=== PATIENT | male | born 1950 | race Caucasian/White ===

== ENCOUNTER 2020-04-16 22:01 | Outpatient (REF) | payer MEDICARE, MEDICAID, SELFPAY ==
[2020-04-16 21:35] LABS: Bilirubin Negative (Negative); Blood Moderate (Negative); Clarity Cloudy (Clear); Glucose Negative (Negative); Ketones Negative (Negative); Leukocyte Esterase Small (Negative); Nitrite Positive (Negative); Specific Gravity >= 1.030 (1.005-1.025); pH 6.5 (5-8)
[2020-04-16 21:55] LABS: WBC >50 HPF (0-5)
[2020-04-16 21:56] LABS: Bacteria Packed HPF (Negative); C & S Indicated? C&S Done As Ordered
== END 2020-04-16 22:21 ==
LOC: LBN 22:01
PROVIDERS: PCP Family Medicine; Visit Provider Family Medicine
DX: R30.0 Dysuria (principal); N18.9 Chronic kidney disease, unspecified
CPT/HCPCS: 87077; 81003; 81015; 87086; 87186

== ENCOUNTER 2020-09-11 17:52 | Outpatient (REF) | payer MEDICARE, MEDICAID, SELFPAY ==
[2020-09-11 18:20] LABS: Bacteria Many HPF (Negative); C & S Indicated? C&S Done As Ordered; Casts Negative LPF (Negative); Crystals Negative HPF (Negative); Epithelial Cells Rare HPF (Negative); Mucus Negative (Negative); Other Cells Negative (Negative); RBC 0-2 HPF (0-2); WBC >50 HPF (0-5)
[2020-09-11 21:38] LABS: Bilirubin Negative (Negative); Blood Large (Negative); Clarity Cloudy (Clear); Glucose Negative (Negative); Ketones Negative (Negative); Leukocyte Esterase Small (Negative); Nitrite Positive (Negative); Specific Gravity >= 1.030 (1.005-1.025); Urobilinogen >=8.0 EU/dL (Up TO 0.2); pH 6.5 (5-8)
[2020-09-11 21:51] LABS: C & S Indicated? Yes
[2020-09-11 21:52] LABS: WBC >50 HPF (0-5)
== END 2020-09-11 17:53 | disposition home or self-care (01) ==
LOC: LBN 17:52
PROVIDERS: PCP Family Medicine; Visit Provider Family Medicine
DX: N39.0 Urinary tract infection, site not specified (principal); R39.89 Other symptoms and signs involving the genitourinary system
CPT/HCPCS: 87077; 81003; 81015; 87086; 87186

== ENCOUNTER 2021-02-14 21:14 | Outpatient (REF) | payer MEDICARE, MEDICAID, SELFPAY ==
[2021-02-14 21:21] LABS: HCT 38.2 % (40.0-50.0); HGB 12.5 g/dL (13.5-17.5); MCH 29.8 pg (27.0-33.0); MCHC 32.7 % (32.0-36.0); MCV 91.2 fL (80-95); MPV 12.1 fL (8.0-11.0); Platelet Count 223 10^3/uL (130-400); RBC 4.19 10^6/uL (4.36-5.78); RDW 13.1 % (11.8-14.1); RDW-SD 43.2 fL; WBC 8.12 10^3/uL (4.4-10.8)
[2021-02-14 22:50] LABS: ALT 25 U/L (16-63); AST 14 U/L (15-37); Albumin 3.6 g/dL (3.4-5.0); Alkaline Phosphatase 81 U/L (46-116); Anion Gap 11.3 mmol/L (3-11); BUN 22 mg/dL (7-18); Bilirubin, Total 0.6 mg/dL (0.2-1.0); CO2 25.7 mmol/L (21.0-32.0); CREATININE 1.8 mg/dL (0.70-1.30); Calcium 8.9 mg/dL (8.5-10.1); Calculated LDL 45 mg/dL (<100); Chloride 106 mmol/L (98-107); Cholesterol 107 mg/dL (<200); Estimated GFR 37.27 (mL/min/1.73m2); Glucose 96 mg/dL (74-106); HDL Cholesterol 31 mg/dL (40-60); Potassium 4.4 mmol/L (3.5-5.1); Sodium 143 mmol/L (136-145); Total Protein 7.3 g/dL (6.4-8.2); Triglyceride 155 mg/dL (<150)
== END 2021-02-14 21:15 | disposition home or self-care (01) ==
LOC: NCHCN 21:14
PROVIDERS: PCP Family Medicine; Visit Provider Family Medicine
DX: E78.5 Hyperlipidemia, unspecified (principal)
CPT/HCPCS: 80053; 80061; 85027

== ENCOUNTER 2021-06-28 23:00 | Inpatient (IN) | payer MEDICARE, MEDICAID, SELFPAY ==
[2021-06-28 23:15] VITALS: BP 133/79; PULSE 79; RESP 20; TEMP 36.4; O2SAT 97
[2021-06-28 23:36] VITALS: RESP 20
--- NOTE | 2021-06-29 | DI.RAD_ITS ---
Exam(s) XR HIP LT COMPLETE AP PELVIS EXAM: XR HIP LT COMPLETE AP PELVIS CLINICAL HISTORY: fall on left hip. TECHNIQUE: 2D digital imaging was performed. COMPARISON: No exams were available for comparison FINDINGS: There is a left hip prosthesis which appears intact. No fracture at this level nor loosening. Also no pelvic fractures. No obvious right hip fracture. Vascular calcification of the iliac arteries no gilbert on both sides of the pelvis. IMPRESSION: Left hip prosthesis. No pelvic nor hip fractures evident. DATA REPOSITORY: RADIATION DOSE DELIVERED:
[2021-06-29 00:22] LABS: Source Nasal/Nares
--- NOTE | 2021-06-29 00:41 | ED.GENADUL_ITS ---
Discharge Plan Disposition Patient Disposition: [facility] INPATIENT Condition: Stable Discharge Details Clinical Impression: Encounter for medical assessment, Bedbound Primary Care Provider: Sridhar Magaña ED Provider: Wayne Yeung Home Meds and New Rx's Prescriptions: No Action sildenafil 25 mg tablet 25 mg PO DAILY PRNRF: 0 triamcinolone acetonide 0.1 % cream 1 applic topical BID RF: 0 sildenafil [Viagra] 100 mg tablet 100 mg PO DAILY PRNRF: 0 thiamine HCl (vitamin B1) 100 mg tablet 100 mg PO DAILY RF: 0 diclofenac sodium 1 % gel 2 g topical TID RF: 0 gabapentin 100 mg capsule 100 mg PO TID RF: 0 clopidogrel [Plavix] 75 mg tablet 75 mg PO DAILY RF: 0 docusate sodium 50 mg/5 mL liquid 50 mg PO BID RF: 0 atorvastatin 20 mg tablet 20 mg PO DAILY RF: 0 metoprolol succinate 50 mg tablet extended release 24 hr PO RF: 0 lisinopril 5 mg tablet 5 mg PO DAILY AM RF: 0 Medical Decision Making <Jame Diaz DO - Last Filed: 06/29/21 07:33> This is a 71-year-old male who is a palliative care patient with a past medical history of previous CVA, who is bedbound, who is DNR/DNI, previous alcohol user, with hypertension, chronic viral hepatitis C, and chronic weakness of the left side secondary to previous stroke, who presents today for medical evaluation. Per the palliative care note he does require help at all times, and uses a [employer] lift transfer. He did have helpers at home but stopped taking them sometime ago. He has otherwise been at home alone for an unknown amount of time. Family members live in [place] and did not in this area. Patient refuses any additional services, and states specifically that I want to live and at home, and I do not want to go back to a care facility or be admitted to the hospital. This evening per state police the daughter of the patient contacted police and said that her father needed to be evaluated. When police and fire evaluated the patient they state that the house was a mess, and the carbon monoxide alarms were going off. Fire felt that there may have been a gas leak, shot that he off to the house. Patient was then brought to [facility] for further assessment. Patient currently has no complaints aside from mild achiness in his left hip. He states that I do not want to be in the hospital, I refused to be admitted, and I refused to go to a facility. He denies any other complaints at this time. Physical exam demonstrates a disheveled appearing male, mild pain over the left greater trochanter. No other signs of focal trauma or other significant acute abnormality. Patient makes it unequivocally clear that he does not want to be in the hospital, he does not want to be admitted, he does not want blood work done, and he does not want to go to a care facility. I discussed with him that he is currently off at his house because the fire department turned it off. I stated that if we sent him home he would likely . He states that he understands this, and has excepted that. He had some choice words to say about his daughter who called, and I did convey that she was doing her best to look out for him. I did attempt to call and connect with the daughter Musa myself at the provided phone number from [employer] police ([phone]) however we were not able to get a hold of her even after multiple attempts. The patient is notably alert and oriented. He knows where he is when it is and demonstrates a very clear understanding of what is going on. He also makes it clear that he understands if he goes home and lives alone he would likely , and he states he accepts this, and states that home is where he wants the diet. Currently though I do not feel that this is the best option to send him home at 1 in the morning with no heat during the middle of the winter. So for the time being we will keep the patient here tonight, give him dinner, and then have case management help develop an appropriate plan for disposition. Additionally we did test for carbon monoxide, and his numbers are all within normal limit. 2:10 AM X-ray negative for acute process. Patient is comfortable. He has eaten well. 7:32 AM Patient was stable throughout the evening, no complications. We will have case management assess him to help with the disposition plan. Case will be signed out to my colleague Dr. Wayne Yeung for final disposition. FINDINGS: Bones/joints: Unipolar left hip prosthesis is grossly intact. No acute fracture. Moderate degenerative changes in the right hip Soft tissues: Unremarkable. Large stool in the rectal vault IMPRESSION: No acute fracture noted Unipolar left hip arthroplasty, grossly intact Thank you for allowing us to participate in the care of your patient. Dictated and Authenticated by: Price Don MD 06/29/2021 1:42 AM Eastern Time ([place] & [place]) <Wayne Yeung MD - Last Filed: 06/29/21 11:03> Care signed out by Dr. Diaz. Catalina Marc, Care Management, reached out to fire dept rep who notes additional history: * CO level in home is high but not critical * heat is still on in home * Patient had live in home health care worker until yesterday when he quit for nonpayment * No family available to participate in care Unsafe for patient to be discharged home with no in home assistance. No family available. Patient agreeable to hospitalization. I spoke with Dr. Beasley, discussed ED presentation and course, he will admit patient. HPI <Jame Diaz DO - Last Filed: 06/29/21 07:33> General Date/Time Provider Initiated Documentation: 06/28/21 23:02 . HPI Narrative: This is a 71-year-old male who is a palliative care patient with a past medical history of previous CVA, who is bedbound, who is DNR/DNI, previous alcohol user, with hypertension, chronic viral hepatitis C, and chronic weakness of the left side secondary to previous stroke, who presents today for medical evaluation. Per the palliative care note he does require help at all times, and uses a [employer] lift transfer. He did have helpers at home but stopped taking them sometime ago. He has otherwise been at home alone for an unknown amount of time. Family members live in [place] and did not in this area. Patient refuses any additional services, and states specifically that I want to live and at home, and I do not want to go back to a care facility or be admitted to the hospital. This evening per state police the daughter of the patient contacted police and said that her father needed to be evaluated. When police and fire evaluated the patient they state that the house was a mess, and the carbon monoxide alarms were going off. Fire felt that there may have been a gas leak, shot that he off to the house. Patient was then brought to [facility] for further assessment. Patient currently has no complaints aside from mild achiness in his left hip. He states that I do not want to be in the hospital, I refused to be admitted, and I refused to go to a facility. He denies any other complaints at this time. Related Data Home Medications Medication Instructions Recorded Confirmed sildenafil 100 mg tablet 100 mg PO DAILY PRN 03/22/20 sildenafil 25 mg tablet 25 mg PO DAILY PRN 03/22/20 triamcinolone acetonide 0.1 % 1 applic TOPICAL BID 03/22/20 topical cream clopidogrel 75 mg tablet 75 mg PO DAILY 06/05/20 06/28/21 diclofenac sodium 1 % topical gel 2 g TOPICAL TID g 06/05/20 docusate sodium 50 mg/5 mL oral 50 mg PO BID ml 06/05/20 liquid gabapentin 100 mg capsule 100 mg PO TID 06/05/20 06/28/21 thiamine HCl (vitamin B1) 100 mg 100 mg PO DAILY 06/05/20 06/28/21 tablet atorvastatin 20 mg PO DAILY 06/28/21 06/28/21 lisinopril 5 mg PO DAILY AM 06/28/21 06/28/21 metoprolol succinate PO 06/28/21 Allergies Allergy/AdvReac Type Severity Reaction Status Date / Time egg Allergy Severe Anaphylaxis Unverified 06/28/21 23:21 varenicline [From Chantix] Allergy liver Unverified 06/28/21 23:21 failure General Stated Complaint: GenMedical NAS: 3 Review of Systems <Jame Diaz DO - Last Filed: 06/29/21 07:33> All systems reviewed & are unremarkable except as noted in HPI and below PFS <Jame Diaz DO - Last Filed: 06/29/21 07:33> All Active Problems (Updated 06/29/21 @ 11:03 by Wayne Yeung MD) Encounter for medical assessment (Acute) DNI (do not intubate) (Acute) DNR (do not resuscitate) (Acute) Bedbound (Acute) CVA (cerebral vascular accident) (Chronic) Hemiplegia affecting left dominant side (Acute) Medical History Alcohol abuse Chronic viral hepatitis C Difficulty in walking Essential hypertension Full incontinence of feces Hemiparesis Hx of TIA (transient ischemic attack) and stroke MRSA (methicillin resistant Staphylococcus aureus) Other abnormalities of gait and mobility Other chronic pain Pain in right hip Tinea unguium Tobacco use Unspecified osteoarthritis, unspecified site Unspecified urinary incontinence Very low level of personal hygiene Surgical History History of hip surgery Hx of cataract surgery Social History Smoking/Tobacco Use Status: Current every day Smoking risk assessment performed?: Yes Alcohol Intake: current Drug use: Occasionally Substance use type: does not use Do you feel safe at home: Yes Additional Social history: pt wants to be at home Exam <Jame Diaz DO - Last Filed: 06/29/21 07:33> Narrative Exam Narrative: 1.Const: Disheveled, quite dirty 2.Eyes: PERRL, no conjunctival injection, and symmetrical lids. 3.ENT: Atraumatic external nose and ears. Moist MM. Neck: Symmetric, trachea midline, No thyromegaly. 4.CVS: +S1/S2, No murmurs or gallops. Peripheral pulses 2+ and equal in all extremities. Brisk capillary refill in all extremities. 5.RESP: Unlabored respiratory effort. Clear to auscultation bilaterally. No wheezes rales or rhonchi 6.GI: Soft, Nontender/Nondistended, No hepatosplenomegaly. No guarding or rebound. 7.MSK: Slight weakness in the left upper and left lower extremity compared to the right, however the patient is able to flex stand and move all extremities well otherwise. Minimal tenderness on palpation of the left greater trochanter. 8.Skin: Warm, Dry. No rashes or lesions. Covered in a notable amount of dirt. 9.Neuro: seat scooper machine II-XII grossly intact. Sensation grossly intact, no focal neurologic deficits. 10.Psych: (AAO) x3. Appropriate mood and affect Course <Jame Diaz DO - Last Filed: 06/29/21 07:33> Vital Signs Vital signs: Vital Signs Temperature 36.4 C L 06/28/21 23:15 Pulse 79 06/28/21 23:15 Respiratory Rate 20 06/28/21 23:15 Blood Pressure 133/79 06/28/21 23:15 Pulse Oximetry 97 06/28/21 23:15 Temperature 36.4 C L 02/05/22 23:15 Temperature Source Oral 06/28/21 23:15 Pulse 79 06/28/21 23:15 Respiratory Rate 20 06/28/21 23:36 Respiratory Effort 06/28/21 23:36 Respiratory Depth Normal 06/28/21 23:36 Blood Pressure 133/79 06/28/21 23:15 Blood Pressure Position Supine 06/28/21 23:15 Pulse Oximetry 97 06/28/21 23:15 Oxygen Delivery Method Room Air 06/28/21 23:15 Oxygen Flow Rate 0 06/28/21 23:15 Lab/Test Results Lab/Test Results: Laboratory Tests Range/Units 06/29/21 00:05 COVID-19 Source Nasal/Nares Sign Out <Jame Diaz DO - Last Filed: 06/29/21 07:33> Sign Out Data: Sign Out Comment: Brought in by state police after daughter from [place] requested he be brought into the ED. Patient states he wants to be at home no matter what. Does not have felt currently. Needs case management for assessment and assistance or help to help facilitate this. Heat was turned off by local fire department prior to him leaving. Patient refuses to be admitted or sent to a care facility. Last updated by Jame Diaz DO at 06/29/21 07:43
[2021-06-29 00:59] LABS: COVID-19 PCR Negative (Negative)
--- NOTE | 2021-06-29 01:43 | DI.VRAD_ITS ---
PROCEDURE INFORMATION: Exam: XR Left Hip Exam date and time: 06/29/2021 12:04 AM Age: 71 years old Clinical indication: Injury or trauma; Blunt trauma (contusions or hematomas); Patient HX: Fall on left hip TECHNIQUE: Imaging protocol: XR Left hip. Views: 2 or 3 views hip with pelvis when performed. COMPARISON: No relevant prior studies available. FINDINGS: Bones/joints: Unipolar left hip prosthesis is grossly intact. No acute fracture. Moderate degenerative changes in the right hip Soft tissues: Unremarkable. Large stool in the rectal vault IMPRESSION: No acute fracture noted Unipolar left hip arthroplasty, grossly intact Dictated and Authenticated by: Price Don MD. Ordering:SHAISTA Kilgore MD
[2021-06-29] MEDS: Acetaminophen 500 MG TAB 1000 MG PO (03:50)
[2021-06-29 05:40] VITALS: BP 85/48; PULSE 72; RESP 16; O2SAT 95
[2021-06-29 08:10] VITALS: BP 114/72; PULSE 70; TEMP 36.8; O2SAT 94
--- NOTE | 2021-06-29 11:54 | NUR.NOTE ---
barbour leg bag changed to a bed hanging drainage bag.Nursing Note:
[2021-06-29 11:56] VITALS: BP 114/72; PULSE 70; RESP 16; TEMP 36.8; O2SAT 94
[2021-06-29 12:10] VITALS: BP 116/73; PULSE 65; RESP 16; TEMP 36.8; O2SAT 95
--- NOTE | 2021-06-29 12:31 | HPE_ITS ---
Date of service: 06/29/21 Time of Service: 12:40 Assessment and Plan Assessment and plan (1) Encounter for medical assessment: Status: Acute Assessment and plan: Brought to hospital d/t lack of caregiver; requires sameera lift or 2 people to help with transferring. S/P CVA. Will have PT/OT evaluations to get a better assessment of his capabilities. He certainly could not survice at home w/o a caregiver to prepare meals and to assist with toileting / bathing. He can eat w/o assistance. He has had 3 visits with palliative care in the recent months. They were consulted. (2) Bedbound: Status: Acute Assessment and plan: He is somewhat inconsistent on describing what he is and isn't capable of. He states he can transfer, but the caregiver he had has been using the sameera lift for transfers. PT/OT. No skin breakdown noted. (3) CVA (cerebral vascular accident): Status: Chronic Assessment and plan: Cont home dose of Plavix, atorvastatin. (4) Hemiplegia affecting left dominant side: Status: Acute Assessment and plan: Pt is right handed. PT/OT evals. requested. (5) Alcohol abuse: Assessment and plan: Cont thiamine as per home meds. Questionably some cognitive concerns that could be related to the previous alcohol abuse disorder. (6) Chronic viral hepatitis C: Assessment and plan: Low AST/ALT in Jan. Pt declining lab draws. (7) Essential hypertension: Assessment and plan: Cont metoprolol and lisinopril. Currently controlled. Monitor. History of Present Illness History of Present Illness Chief Complaint: No caregiver at home Narrative: This is a 71 yo male with a PMH of stroke x 2 with residual left sided weakness / bed-bound, HTN, chronic hepatitis C, previous alcohol abuse disorder. He presented to the ED after a welfare check at his home by data systems manager. He requires total care / use of a sameera lift for transfers, though he endorses having a cane and not being totally bed-bound. His caregiver quit the day prior to admission d/t not being paid. Payment for the caregiver was evidently to be provided through long-term Medicaid, but his long-term Medicaid application has not been completed. The caregiver called for the welfare check. It is reported that the carbon monoxide alarm was alerting at the time of the welfare check and the house was in disarray. The data systems manager reported to care management that the carbond monoxide level was higher than recommended but not in a danger zoen. The patient was not and reportedly stated he has not been somnolent/lethargic. The patient is seen by palliative care. He is a DNR/DNI. He was adamant that he not be admitted and he stated he would go home to even if there was no caregiver or heat in the home. He eventually agreed to admission. He refused lab draws. He accepts his routine home medications. Review of Systems All systems reviewed & are unremarkable except as noted in HPI and below PFSH All Active Problems Encounter for medical assessment (Acute) DNI (do not intubate) (Acute) DNR (do not resuscitate) (Acute) Bedbound (Acute) CVA (cerebral vascular accident) (Chronic) Hemiplegia affecting left dominant side (Acute) Medical History Alcohol abuse Chronic viral hepatitis C Difficulty in walking Essential hypertension Full incontinence of feces Hemiparesis Hx of TIA (transient ischemic attack) and stroke MRSA (methicillin resistant Staphylococcus aureus) Other abnormalities of gait and mobility Other chronic pain Pain in right hip Tinea unguium Tobacco use Unspecified osteoarthritis, unspecified site Unspecified urinary incontinence Very low level of personal hygiene Surgical History History of hip surgery Hx of cataract surgery Social History Smoking/Tobacco Use Status: Current every day Smoking risk assessment performed?: Yes Alcohol Intake: current Drug use: Occasionally Substance use type: does not use Do you feel safe at home: Yes Additional Social history: pt wants to be at home Meds Allergies and Home Medications Allergies Allergy/AdvReac Type Severity Reaction Status Date / Time egg Allergy Severe Anaphylaxis Unverified 06/28/21 23:21 varenicline [From Chantix] Allergy liver Unverified 06/28/21 23:21 failure Home Medications Medication Instructions Recorded Confirmed Type sildenafil 100 mg tablet 100 mg PO DAILY PRN 03/22/20 History sildenafil 25 mg tablet 25 mg PO DAILY PRN 03/22/20 History triamcinolone acetonide 0.1 % 1 applic TOPICAL BID 03/22/20 History topical cream clopidogrel 75 mg tablet 75 mg PO DAILY 06/05/20 06/28/21 History diclofenac sodium 1 % topical gel 2 g TOPICAL TID g 06/05/20 History docusate sodium 50 mg/5 mL oral 50 mg PO BID ml 06/05/20 History liquid gabapentin 100 mg capsule 100 mg PO TID 06/05/20 06/28/21 History thiamine HCl (vitamin B1) 100 mg 100 mg PO DAILY 06/05/20 06/28/21 History tablet atorvastatin 20 mg PO DAILY 06/28/21 06/28/21 History lisinopril 5 mg PO DAILY AM 06/28/21 06/28/21 History metoprolol succinate PO 06/28/21 History Exam Narrative Exam Narrative: Elderly male, smiling. Lying in bed. Const General: cooperative and no acute distress Nutritional Appearance: average body habitus Orientation: alert, oriented to person and oriented to place HENWA Head: normocephalic and atraumatic Neck Neck: full ROM and no JVD Resp Effort & Inspection: normal respiratory effort Auscultation: clear to auscultation bilaterally Cardio Rate: regular rate Rhythm: regular rhythm Heart Sounds: S1 normal and S2 normal GI Palpation: soft and nontender Auscultation: normal bowel sounds Skin General skin exam: no rashes or lesions noted Neuro Cranial Nerves: facial strength normal Speech: abnormal speech slurred (mild) Motor: strength 5/5 throughout (Able to extend both hips and lift legs off bed. ) and other (Proximal LLE 2/5. Left 2nd and 3rd digits in fixed extension. ) Results Labs Labs: Laboratory Results - last 24 hr 06/29/21 00:05 COVID-19 Source Nasal/Nares SARS-CoV-2 (PCR) Negative Last Vital Signs Temp 36.8 C 06/29/21 11:56 Pulse 70 06/29/21 11:56 Resp 16 06/29/21 11:56 BP 114/72 06/29/21 11:56 Pulse Ox 94 06/29/21 11:56
[2021-06-29] MEDS: Gabapentin 100 MG CAP PO ×2 (13:28→21:22)
[2021-06-29 15:12] VITALS: BP 104/65; PULSE 79; RESP 18; TEMP 36.8; O2SAT 97
--- NOTE | 2021-06-29 17:41 | INITIAL_ITS ---
- If Service Date Differs Date of service: 06/29/21 Time of Service: 17:41 Care Management Initial Assess REASON FOR HOSPITALIZATION:: Failure to thrive. PAST MEDICAL HISTORY/PAST SURGICAL HISTORY:: All Active Problems: Encounter for medical assessment (Acute), DNI (do not intubate) (Acute), DNR (do not resuscitate) (Acute), Bedbound (Acute), CVA (cerebral vascular accident) (Chronic), and Hemiplegia affecting left dominant side (Acute). Medical Histor y: Alcohol abuse, Chronic viral hepatitis C, Difficulty in walking, Essential hypertension, Full incontinence of feces, Hemiparesis,. Hx of TIA (transient ischemic attack) and stroke, MRSA (methicillin resistant Staphylococcus aureus), Other abnormalities of gait and mobility,. Other chronic pain, Pain in right hip, Tinea unguium, Tobacco use, Unspecified osteoarthritis, unspecified site, Unspecified urinary incontinence, and Very low level of personal hygiene. Surgical History: History of hip surgery and Hx of cataract surgery. PREVIOUS FUNCTIONAL STATUS/SOCIAL/FAMILY SUPPORTS:: Gama lives alone in [place], [place]. He has two daughters but is reportedly estranged from them. Until recently, Gama had a private live-in caregiver but this caregiver quit due to a lack of funding to pay for the position. CURRENT FUNCTIONAL STATUS:: Gama is laying in bed when CM comes to meet with him. He is pleasant and easily engages in conversation. His speech is at times difficult to understand, due to his history of strokes. ADVANCE DIRECTIVES:: None on file. Has patient been provided with info about the portal/API?: No Did the patient sign up for the portal?: No CODE STATUS:: DNR/DNI INSURANCE COVERAGE / FINANCIAL ISSUES:: Medicare and Medicaid. CURRENT HOME/COMMUNITY SERVICES/EQUIPMENT:: Gama has no home or community services currently. He reportedly requires a sameera lift for all transfers. Gama was previously connected with Palliative Care and Home Health services. PRIMARY CARE PHYSICIAN:: Sridhar Magaña MD. POTENTIAL DISCHARGE NEEDS:: SNF placement vs. Home Health services. PATIENT/FAMILY EDUCATION NEEDS:: Discharge instructions re medications and follow up plan of care; discuss [facility] [employer] and self care needs. ANTICIPATED BARRIERS TO DISCHARGE:: Gama's refusal of SNF. TRANSPORTATION:: Remains to be determined. PLAN:: Gama would benefit from a SNF placement. If he continues to refuse SNF, then he will at a minimum require Home Health services. CM will continue to follow.
[2021-06-29] MEDS: Acetaminophen 325 MG TAB PO (21:21)
[2021-06-29 21:50] VITALS: BP 97/55; PULSE 69; RESP 16; TEMP 36.2; O2SAT 95
[2021-06-30] MEDS: Acetaminophen 325 MG TAB PO ×2 (04:03→11:23)
[2021-06-30 07:34] VITALS: BP 100/52; PULSE 56; RESP 18; TEMP 36.2; O2SAT 97
[2021-06-30] MEDS: Lisinopril 5 MG TAB PO (08:28)
[2021-06-30] MEDS: Thiamine 100 MG TAB PO (08:29)
[2021-06-30] MEDS: Clopidogrel 75 MG TAB PO (08:29)
[2021-06-30] MEDS: Metoprolol CR 50 MG TABCR PO (08:29)
[2021-06-30] MEDS: Gabapentin 100 MG CAP PO ×3 (08:29→19:56)
[2021-06-30] MEDS: Atorvastatin 20 MG TAB PO (08:29)
[2021-06-30 08:53] VITALS: BP 100/62; PULSE 62; RESP 18; TEMP 36.2; O2SAT 97
--- NOTE | 2021-06-30 09:31 | NT_ITS ---
Date of service: 06/30/21 Time of Service: 09:31 Occupational Therapy Notes 06/30/21 OT consult received and pts chart was reviewed. OT attempted to see pt who was just coming back from testing. He states that he would like to hold till later today. OT will attempt to resume/initiate service tomorrow. Mandy Camilo OTR/[facility]
--- NOTE | 2021-06-30 09:45 | PT.INIE ---
Date of service: 06/30/21 Time of Service: 09:45 PT Notes Visit Reasons: Failure to Thrive Physical Therapy Inpatient Initial Evaluation Date: 06/30/2021 Referring Doctor: Sridhar Beasley MD PT Orders: PT CONSULT: Eval/treat Precautions: Fall. Standard. Activity as tolerated. 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 Patient is diagnosed with failure to thrive at home, EtOH abuse, and essential hypertension. Referral for PT was made in order to assess mobility level to facilitate safe discharge planning. PMHX: All Active Problems Encounter for medical assessment (Acute) DNI (do not intubate) (Acute) DNR (do not resuscitate) (Acute) Bedbound (Acute) CVA (cerebral vascular accident) (Chronic) Hemiplegia affecting left dominant side (Acute) Medical History Alcohol abuse Chronic viral hepatitis C Difficulty in walking Essential hypertension Full incontinence of feces Hemiparesis Hx of TIA (transient ischemic attack) and stroke MRSA (methicillin resistant Staphylococcus aureus) Other abnormalities of gait and mobility Other chronic pain Pain in right hip Tinea unguium Tobacco use Unspecified osteoarthritis, unspecified site Unspecified urinary incontinence Very low level of personal hygiene Surgical History History of hip surgery Hx of cataract surgery Social History/Home Situation: Patient states that he has a roommate at home who lives with him and provides assistance with all transfer task performance using the mechanical lift. This room mate helps out with all other activities of daily living as requested by him. Equipment Owned/DME: Hospital bed, front wheeled walker, single-point cane, mechanical lift Subjective: Patient indicates that his roommate helps him with everything that he needs at home. He complains of pain in the left hip and thigh which he says he has had for quite a while now. He indicates that he did not have any gas leak and that the carbon monoxide alarm did not go off. He is agreeable to a short-term rehab stay so that he can be much safer at home. Objective: General Observation: Supine in bed. Turner catheter in place. Mental Status: Alert and oriented as to person, place, time, and purpose. Able to pay attention but has a difficulty focusing on task. Also has difficulty executing motor movements Pain: Mild to moderate pain in the left thigh at rest and with movement ROM: Right Upper Extremity: Shoulder Flexion WFL. Shoulder abduction WFL. Elbow flexion WFL. Wrist flexion WFL. Functional opening and closing of hand WFL. Left Upper Extremity: Shoulder Flexion allows only up to about 100 degrees. Shoulder abduction allows only up to about 80 degrees. Elbow flexion WFL. Wrist flexion WFL. Functional opening and closing of hand WFL. Right Lower Extremity: Hip flexion WFL. Hip abduction WFL. Knee flexion WFL. Ankle dorsiflexion WFL. Ankle plantarflexion WFL. Left Lower Extremity: Hip flexion unable to bend at the hip beyond 90 while seated at edge of bed and on the chair. Hip abduction WFL. Knee flexion 40 degrees to 90 degrees. Knee extensors -40 degrees. Ankle dorsiflexion 10 degrees. Ankle plantarflexion WFL. Strength: Right Upper Extremity: Shoulder flexors 4/5. Shoulder abductors 4/5. Elbow flexors 4/5. Elbow extensors 4/5. Flatwork Presser strong. Left Upper Extremity: Shoulder flexors 3-/5. Shoulder abductors 3-/5. Elbow flexors 4-/5. Elbow extensors 4-/5. Flatwork Presser weak but functional Right Lower Extremity: Hip flexors 4-/5. Hip abductors 4/5. Knee flexors 4/5. Knee extensors 4-/5. Ankle dorsiflexors 3/5. Ankle plantarflexors 3/5. Left Lower Extremity: Hip flexors 3-/5. Hip abductors 4-/5. Knee flexors 3-/5. Knee extensors 3-/5. Ankle dorsiflexors 3-/5. Ankle plantarflexors 4-/5. Bed Mobility/Transfers: Rolling minimal assist Supine to sit minimal assist Sit to stand with moderate assist of 2 with maximal verbal cueing for hand placement Stand to sit with contact-guard of 2 with maximal verbal cueing for hand placement Bed to reclining chair moderate assist of 2 with maximal verbal cueing for safety Reclining chair to bed moderate assist of 2 with maximal verbal cueing for safety Gait: Instructed patient with level surface ambulation of 10 feet requiring moderate assist of 2 assist. Sary decreased. Step height on left decreased. Step length on left decreased. 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 Balance: Static Sitting: Fair Dynamic Sitting: Fair Static Standing: Poor Dynamic Standing: Poor Special Tests: Mobility Limitations Standardized Measure [facility] AM-PAC 6 clicks Basic Mobility Inpatient Short Form: Raw Score: CMS Score: 69% deficit Informed Consent/Education: Patient was instructed in purpose of PT consult and plan of care. Agreeable to proceed with established PT POC to achieve personal goals. Assessment: Gama demonstrates increased instability and incoordination with mobility task performance requiring the assistance of 2 people for transfers and short distance ambulation to reduce fall risk. 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 BUE/LE with Patient presents with clinical signs and symptoms consistent with current/admitting diagnoses that have resulted to mobility limitations, gait instability, generalized weakness, and overall ADL decline as demonstrated by the following impairment level findings: 1. Decreased strength to B UE/LE with left UEsLE more affected major muscle groups 2. Impaired sitting/standing balance 3. Impaired activity tolerance 4. Limitation of joint range of motion in left UEs and LE joints due to left-sided hemiplegia 5. Impaired coordination 6. Pusher syndrome Impairments are contributing to the following functional limitations: 1. Decline in bed mobility skills 2. Decline in transfer skills 3. Difficulty with ambulation without assistive device and physical assistance 4. Increased completion time for mobility ADL performance 5. Increased risk for falls 6. Difficulty with managing steps alone safely Patient is assessed as a 53668 moderate complexity based on the following: History: 71-year-old male 67 with past medical history as indicated above Examination: Demonstrable impairment in strength, balance, and mobility level with underlying impairments and functional limitations as exhibited above as well as deficit score of % utilizing the [facility] Mobility Inpatient Short Form Presentation: Evolving Decision Makin moderate complexity Goals: Goals X1 week 1. Supine-Sit independent 2. Sit-Supine independent 3. Sit-Stand minimal assist 4. Stand-Sit contact-guard assist with FWW 5. Bed-Chair minimal assist with FWW 6. Chair-Bed minimal assist with FWW 7. Minimal assist gait on level surface with use of FWW for at least 30 feet without report of pain nor dyspnea 8. Good static and dynamic standing balance/tolerance Plan of Care/Treatment Plan: 1-2x/day, 7 days/week x 1 week. Plan of care has been reviewed with the PHOTOGRAPHIC PROCESS WORKER providing the service under Physical Therapy direction. Initiate Physical Therapy intervention for pain management as needed, strengthening, bed mobility, transfers, gait, stairs, balance training, and use of assistive device. DISCHARGE RECOMMENDATIONS: [] Home with no services [] [] Home with services [specify] [] Home with outpatient PT [] [X] SNF for continued rehabilitation. Patient will benefit from halfway facility placement for continued skilled physical therapy services in order to progress mobility level, strength, and balance in preparation for a safe discharge to home. [] [facility] [] [] SNF versus LTC based on ability to participate and progress [] TREATMENT CODE/TIME: 88448 x 25 minutes beginning at 9:45 AM. Thank you for the opportunity to participate in the care of this patient. Becca Albrecht PT, DPT, CLT [facility] [place], [place]
--- NOTE | 2021-06-30 12:01 | W.PM.PROGNOT ---
Date of Service Date of service: 06/30/21 Time of Service: 12:01 Assessment and Plan Assessment and plan (1) Encounter for medical assessment: Status: Acute Assessment and plan: Brought to hospital d/t lack of caregiver; requires sameera lift or 2 people to help with transferring. S/P CVA. Will have PT/OT evaluations. PT recommending further PT. See Discharge planning (2) Bedbound: Status: Acute Assessment and plan: He is somewhat inconsistent on describing what he is and isn't capable of. He states he can transfer, but the caregiver he had has been using the sameera lift for transfers. PT/OT. No skin breakdown noted. He had been at a SNF since at least November of 2019, according to daughter, until late April. (3) CVA (cerebral vascular accident): Status: Chronic Assessment and plan: Cont home dose of Plavix, atorvastatin. (4) Hemiplegia affecting left dominant side: Status: Acute Assessment and plan: Pt is right handed. PT/OT evals. requested. (5) Alcohol abuse: Assessment and plan: Cont thiamine as per home meds. Questionably some cognitive concerns that could be related to the previous alcohol abuse disorder. (6) Chronic viral hepatitis C: Assessment and plan: Low AST/ALT in Jan. Pt declining lab draws. (7) Essential hypertension: Assessment and plan: Cont metoprolol and lisinopril. Currently controlled. Monitor. (8) Tobacco use: Assessment and plan: Nicoderm patch 14mg daily. (9) Discharge planning issues: Status: Acute Assessment and plan: Clarification on home/caregiver status. His hearing healthcare practitioner at his PCP office has been working with his caregiver to make improvements to his home so it can be classified as an AFC home. It is apparently close to being classified as such. His caregiver did not quit; had car issues and could not make it to the patients home but did call for a welfare check. Patients decision making capacity is in question so will likely need psychiatry input, if his home is not ready soon. If his home isn't ready, it would then be recommended he go, temporarily, to a facility. Subjective Subjective Patient reports: no new complaints, feels better, tolerating a regular diet and afebrile; denies nausea, vomiting and shortness of breath Interval history since last seen: He continues to voice a desire to go home. No aggressive behavior. Exam Narrative Exam Narrative: Elderly male, smiling. Lying in bed. Const General: cooperative and no acute distress Nutritional Appearance: average body habitus Orientation: alert, oriented to person, oriented to place and oriented to time (Believed the year was 1991. ) [facility] Head: normocephalic and atraumatic Neck Neck: full ROM and no JVD Resp Effort & Inspection: normal respiratory effort Auscultation: clear to auscultation bilaterally Cardio Rate: regular rate Rhythm: regular rhythm Heart Sounds: S1 normal and S2 normal GI Palpation: soft and nontender Auscultation: normal bowel sounds Skin General skin exam: no rashes or lesions noted Neuro Cranial Nerves: facial strength normal Speech: abnormal speech slurred (mild) Motor: strength 5/5 throughout (Able to extend both hips and lift legs off bed. ) and other (Proximal LLE 2/5. Left 2nd and 3rd digits in fixed extension. ) Objective Last Vital Signs Temp 36.2 C L 06/30/21 08:53 Pulse 62 06/30/21 08:53 Resp 18 06/30/21 08:53 BP 100/62 06/30/21 08:53 Pulse Ox 97 06/30/21 08:53
[2021-06-30] MEDS: Nicotine 14 MG/24 HR PATCH TD (12:44)
--- NOTE | 2021-06-30 14:29 | PCNE_ITS ---
Date of service: 06/30/21 Time of Service: 14:29 History of Present Illness History of Present Illness Chief Complaint: CVA Narrative: From H and P: History of Present Illness Chief Complaint: No caregiver at home Narrative: This is a 71 yo male with a PMH of stroke x 2 with residual left sided weakness / bed-bound, HTN, chronic hepatitis C, previous alcohol abuse disorder. He presented to the ED after a welfare check at his home by electric stop installer. He requires total care / use of a sameera lift for transfers, though he endorses having a cane and not being totally bed-bound. His caregiver quit the day prior to admission d/t not being paid. Payment for the caregiver was evidently to be provided through long-term Medicaid, but his long-term Medicaid application has not been completed. The caregiver called for the welfare check. It is reported that the carbon monoxide alarm was alerting at the time of the welfare check and the house was in disarray. The electric stop installer reported to care management that the carbond monoxide level was higher than recommended but not in a danger zoen. The patient was not and reportedly stated he has not been somnolent/lethargic. The patient is seen by palliative care. He is a DNR/DNI. He was adamant that he not be admitted and he stated he would go home to even if there was no caregiver or heat in the home. He eventually agreed to admission. He refused lab draws. He accepts his routine home medications. Interim Hx: 71 yo male , bedbound, with 24 hour ambulance paramedic with new onset l weakness. Gama feels he has his care in place, there was snag when his caregiver had car trouble. He feels going to a rehab/correction is like going to intermediate. He refuses to go to a rehab and wants to return home even if it leads to . He undersatnds he is an at risk person, but willing to take this risk rather than to return to an institution Consults Consult date: 06/30/21 Requesting physician: Sridhar Beasley Assessment and Plan Assessment and plan (1) Bedbound: Status: Acute (2) CVA (cerebral vascular accident): Status: Chronic (3) Hemiplegia affecting left dominant side: Status: Acute (4) Palliative care patient: Status: Acute Assessment and plan: He clearly understood his current medical condition. He understood that returning home without the proper caretakers could be dangerous to his health, even . He was in a local correction recently and felt like he was in intermediate. He doesn't want to return to a correction and would rather take his chances on his own. When he returns home he should have Home Health services to improve his chance of recovery and safety Review of Systems Narrative: I feel fine. Constitutional Comments: Frail man, lying in bed, but engages in the conversation with good concentration and thought. Musculoskeletal Comments: left sided weakness Psychiatric Comments: Firm that he wants to go home [facility] All Active Problems (Updated 07/03/21 @ 10:22 by Sridhar Beasley MD) Decreased mobility (Acute) 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 (Acute) Palliative care patient (Acute) Discharge planning issues (Acute) Encounter for medical assessment (Acute) DNI (do not intubate) (Acute) DNR (do not resuscitate) (Acute) Bedbound (Acute) CVA (cerebral vascular accident) (Chronic) Hemiplegia affecting left dominant side (Acute) Medical History Alcohol abuse Chronic viral hepatitis C Difficulty in walking Essential hypertension Full incontinence of feces Hemiparesis Hx of TIA (transient ischemic attack) and stroke MRSA (methicillin resistant Staphylococcus aureus) Other abnormalities of gait and mobility Other chronic pain Pain in right hip Tinea unguium Tobacco use Unspecified osteoarthritis, unspecified site Unspecified urinary incontinence Very low level of personal hygiene Surgical History History of hip surgery Hx of cataract surgery Social History Smoking/Tobacco Use Status: Current every day Smoking risk assessment performed?: Yes Alcohol Intake: current Drug use: Occasionally Substance use type: does not use Do you feel safe at home: Yes Additional Social history: pt wants to be at home Exam Narrative Exam Narrative: Lying in bed, engaged in conversation HENMT Ears: hearing grossly normal bilaterally Mouth: lip abnormal and tongue abnormal Teeth and gingiva: poor dentition Resp Effort & Inspection: able to speak in complete sentences Auscultation: diminished lung sounds Cardio Rate: regular rate Heart Sounds: murmur Neuro General: patient oriented x3 and moves all extremities Speech: abnormal speech Gait: other Psych Appearance: disheveled Speech and Movement: slurred speech (not from alcohol but from lip and tongue abnormality) Mood: congruent mood Attitude: guarded Results Last Vital Signs Temp 97.2 F L 06/30/21 08:53 Pulse 62 06/30/21 08:53 Resp 18 06/30/21 08:53 BP 100/62 06/30/21 08:53 Pulse Ox 97 06/30/21 08:53
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
[2021-06-30 15:58] VITALS: BP 114/76; PULSE 68; RESP 17; TEMP 36.5; O2SAT 98
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
[2021-06-30 19:54] VITALS: BP 114/76; PULSE 68; RESP 17; TEMP 36.6; O2SAT 98
[2021-06-30] MEDS: Diclofenac 1% Gel 100 GM TUBE TP (19:57)
[2021-07-01 05:07] VITALS: BP 113/66; PULSE 64; RESP 18; TEMP 36.1; O2SAT 96
[2021-07-01] MEDS: Nicotine 14 MG/24 HR PATCH TD (08:11)
[2021-07-01] MEDS: Atorvastatin 20 MG TAB PO (08:12)
[2021-07-01] MEDS: Lisinopril 5 MG TAB PO (08:12)
[2021-07-01] MEDS: Clopidogrel 75 MG TAB PO (08:12)
[2021-07-01] MEDS: Gabapentin 100 MG CAP PO ×3 (08:13→20:46)
[2021-07-01] MEDS: Metoprolol CR 50 MG TABCR PO (08:13)
[2021-07-01] MEDS: Thiamine 100 MG TAB PO (08:13)
[2021-07-01] MEDS: Diclofenac 1% Gel 100 GM TUBE TP ×3 (08:13→20:46)
[2021-07-01 08:46] VITALS: BP 113/70; PULSE 69; RESP 18; TEMP 36.7; O2SAT 93
--- NOTE | 2021-07-01 09:06 | OT.INIE ---
Occupational Therapy Notes Inpatient Occupational Therapy Evaluation Date: 07/01/21 Referring Doctor: Sridhar Beasley MD OT Orders: Non Urgent Precautions: Fall, standard, DNR/DNI PATIENT PROFILE/ADMITTING DIAGNOSIS: Pt is a 71 year old male who was admitted for the dx of CVA, hemiplegia of (L) dominant side, bedbound, DNI, DNR, encounter for medical assessment. Past Medical History: All Active Problems Encounter for medical assessment (Acute) DNI (do not intubate) (Acute) DNR (do not resuscitate) (Acute) Bedbound (Acute) CVA (cerebral vascular accident) (Chronic) Hemiplegia affecting left dominant side (Acute) Medical History Alcohol abuse Chronic viral hepatitis C Difficulty in walking Essential hypertension Full incontinence of feces Hemiparesis Hx of TIA (transient ischemic attack) and stroke MRSA (methicillin resistant Staphylococcus aureus) Other abnormalities of gait and mobility Other chronic pain Pain in right hip Tinea unguium Tobacco use Unspecified osteoarthritis, unspecified site Unspecified urinary incontinence Very low level of personal hygiene Surgical History History of hip surgery Hx of cataract surgery Social History/Home Situation: Pt reports to OT that he lives with a caregiver who helps him with everything. He states that he needs (A) with everything and that he cannot do anything without help. He also reports that he has two daughters but that they are not local. He then tells me that his caregiver lives with him and that he has another caregiver who is in [place]. Equipment owned/DME: Unable to assess as pt is a poor historian. SUBJECTIVE: Pt reports that he was taken from his home by the police with guns and that he is at the hospital because of this. He is unable to explain any type of situation as to why this happened. He is unable to describe his day to day routine. He states that his caregiver had left him unexpectedly and thats why the police came. He also notes that he believes that the police want him to stay at [facility]. Pt states that he is receptive to OT evaluation and then notes that he does not want services and then states again he is receptive. OT will discuss plan with MD to see if services are appropriate. OBJECTIVE: General Observation: Pleasant, (L) hand weakness with decreased coordination. Mental Status: A&Ox2 Pain: no c/o pain ROM: RUE AROM WFL L UE Able to achieve ROM with decreased coordination and control STRENGTH: RUE 3/5 throughout LUE 2+/5 throughout FUNCTIONAL MOBILITY/ADLS: Pt refuses all performance of ADLs today. He is able to reach his face with his (R) UE and his (L) UE and his abdomen. His (L) UE has decreased control and coordination which limits him with (B) UE hand use. Functionally He can bring his (R) UE to his mouth. He is not receptive to this and requires vc for performance. Unable to assess any functional mobility as pt states that he is sameera transfer only. On pts board he is (A) of 2 for functional mobility. Pt refused stating he cannot transfer with a sameera. Pt also notes that he cannot perform his eating (I). His (R) UE has ROM to be able to perform this. SPECIAL TESTS: Daily Activity Limitations Standardized Measure [facility] AM -PAC ?6 clicks? Daily Activity Inpatient Short Form: Raw score: 18 INFORMED CONSENT/EDUCATION: Pt instructed in purpose of OT Consult and plan of care. ASSESSMENT: Patient is a 71-year-old male referred to occupational therapy services with diagnosis of CVA, hemiplegia of (L) dominant side, bedbound, DNI, DNR, encounter for medical assessment. Patient presents with clinical signs and symptoms consistent with dx, as demonstrated by the following impairment level findings/functional limitations: Impairments in ADL/IADL and leisure activities, decreased functional activity tolerance, decreased (L) UE coodination, possible cognitive impairment, poor historian, decreased ADLs and states that he requires (A). Patient is assessed as a Moderate 79666 complexity based on the following: History: see above Examination: see functional limitations as noted above Presentation: evolving GOALS Goals x1 week 1. Grooming sitting on side of the bed able to brush his teeth and hair (I) 2. Dressing sitting on side of the bed min (A) don and doffing [facility] gown 3. Bathing sitting on side of the bed min (A) UE, mod (A) LE 4. Eating sitting in bed min (A) PLAN OF CARE/TREATMENT PLAN: 1x/day, 5 days/ week x 1week Initiate Occupational Therapy Services for bathing, dressing, grooming, toileting, eating, transfer training. Pending conversation with MD on pts plan of care. DISCHARGE RECOMMENDATIONS OT recommends that pt go SNF vs. LTC. TREATMENT TIME/MINUTES/CODES 37009, 31069, 20 minutes (07:25) Mandy Camilo OTR/L [facility]
--- NOTE | 2021-07-01 13:09 | PGE_ITS ---
Date of Service Date of service: 07/01/21 Time of Service: 13:09 Assessment and Plan Assessment and plan (1) Encounter for medical assessment: Status: Acute Assessment and plan: Brought to hospital d/t lack of caregiver; requires sameera lift or 2 people to help with transferring. S/P CVA. Will have PT/OT evaluations. PT recommending further PT. See Discharge planning (2) Bedbound: Status: Acute Assessment and plan: He is somewhat inconsistent on describing what he is and isn't capable of. He states he can transfer, but the caregiver he had has been using the sameera lift for transfers. PT/OT following. 2 person assist for standing static. No skin breakdown noted. He had been at a SNF since at least November of 2019, according to daughter, until late April. (3) CVA (cerebral vascular accident): Status: Chronic Assessment and plan: Cont home dose of Plavix, atorvastatin. (4) Hemiplegia affecting left dominant side: Status: Acute Assessment and plan: Pt is right handed. PT/OT evals. requested. (5) Alcohol abuse: Assessment and plan: Cont thiamine as per home meds. Questionably some cognitive concerns that could be related to the previous alcohol abuse disorder. (6) Chronic viral hepatitis C: Assessment and plan: Low AST/ALT in Jan. Pt declining lab draws. (7) Essential hypertension: Assessment and plan: Cont metoprolol and lisinopril. Currently controlled. Monitor. (8) Tobacco use: Assessment and plan: Nicoderm patch 14mg daily. (9) Discharge planning issues: Status: Acute Assessment and plan: Clarification on home/caregiver status. His physician primary care sports medicine at his PCP office has been working with his caregiver to make improvements to his home so it can be classified as an AFC home. It is apparently close to being classified as such. His caregiver did not quit; had car issues and could not make it to the patients home but did call for a welfare check. He has now stated he is agreeable to a temporary stay at a SNF until his home is ready. Referral made to [place]; his choice of facilities. Subjective Subjective Patient reports: no new complaints, tolerating a regular diet and afebrile; denies diarrhea, nausea, vomiting and shortness of breath Interval history since last seen: He continues to voice a desire to go home. No aggressive behavior. Exam Narrative Exam Narrative: Elderly male, smiling. Lying in bed. Const General: cooperative and no acute distress Nutritional Appearance: average body habitus Orientation: alert, oriented to person and oriented to place [place] Head: normocephalic and atraumatic Neck Neck: full ROM and no JVD Resp Effort & Inspection: normal respiratory effort Auscultation: clear to auscultation bilaterally Cardio Rate: regular rate Rhythm: regular rhythm Heart Sounds: S1 normal and S2 normal GI Palpation: soft and nontender Auscultation: normal bowel sounds Skin General skin exam: no rashes or lesions noted Neuro Cranial Nerves: facial strength normal Speech: abnormal speech slurred (mild) Motor: strength 5/5 throughout (Able to extend both hips and lift legs off bed. ) and other (Proximal LLE 2/5. Left 2nd and 3rd digits in fixed extension. ) Objective Last Vital Signs Temp 36.7 C 07/01/21 08:46 Pulse 69 07/01/21 08:46 Resp 18 07/01/21 08:46 BP 113/70 07/01/21 08:46 Pulse Ox 93 07/01/21 08:46
--- NOTE | 2021-07-01 14:04 | PTTR_ITS ---
Date of service: 07/01/21 Time of Service: 14:04 PT Notes Visit Reasons: Failure to Thrive Physical Therapy Inpatient Treatment Note Date: 07/01/2021 Precautions: Fall. Standard. Activity as tolerated. Subjective: States that he did not have enough rest the previous night. Needed encouargement to participate in both sessions today. Objective: General Observation: Supine in bed. Turner catheter in place. Mental Status: Alert and oriented as to person, place, time, and purpose. Able to pay attention but has a difficulty focusing on task. Also has difficulty executing motor movements. Pain: Moderate pain in the left thigh at rest and with movement Bed Mobility/Transfers: Rolling minimal assist Supine to sit minimal assist Sit to stand moderate assist of 2 Stand to sit minimal assist of 2 Bed to chair moderate assist of 2 GAIT: Required moderate assist of 2 to take 8 steps from bedside to bedside recliner with pusher syndrome increasing risk for instability and falls. Maximal verbal and tactile cues given for overall safety. Completed will repeat in the left hip with weight bearing. THERA EX: In the afternoon patient performed upper extremity exercises with all exercises needed tactile cueing from PT as lack of it limits patient's perform ance. Please see exercise sheet. THERA ACT: Required assistance with patient positioning during perineal care after bowel movement with CATHETERIZATION LABORATORY TECHNICIAN Lorena. Balance: Static Sitting: Fair Dynamic Sitting: Fair Static Standing: Poor Dynamic Standing: Poor Assessment: Gama demonstrates increased instability and incoordination with mobility task performance requiring the assistance of 2 people for transfers and for short distance ambulation to reduce fall risk. 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 DISCHARGE RECOMMENDATIONS: [] Home with no services [] [] Home with services [specify] [] Home with outpatient PT [] [X] SNF for continued rehabilitation. Patient will benefit from detention facility placement for continued skilled physical therapy services in order to progress mobility level, strength, and balance in preparation for a saf e discharge to home. [] [facility] [employer] [facility] [] [] SNF versus LTC based on ability to participate and progress [] TREATMENT CODE/TIME: Session 1??93158 x 17 minutes beginning at 11:02 AM. Session 2??[id number] x 15 minutes, 94736 x 13 minutes beginning at 14:04 PM.
--- NOTE | 2021-07-01 15:12 | UCONE_ITS ---
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 We discontinued his Plavix just today, so we would need to wait toward the end of the week before we can safely place a catheter. We have made arrangements to do so in the operating room on Wednesday morning. We will utilize a local anesthetic along with general anesthesia/MAC. I will need to change his catheter about 4 to 6 weeks after the initial placement. The patient tells me that he does have a wheelchair that reclines, so we should be able to accommodate the patient and safely change the catheter in our office. We do not have access to a Rafael lift in our clinic should we need to transfer him using that particular piece of equipment. Once the initial catheter change occurs, his home health providers can take over the monthly changes. History of Present Illness History of Present Illness Chief Complaint: urethral erosion Narrative: This is a 71-year-old gentleman who has a history of a stroke. He is essentially bedbound and has incontinence of both urine and feces. He has had an indwelling urethral catheter for several years. The catheter is changed monthly. He has developed urethral erosion from pressure related to his catheter. He is interested in having his bladder drainage converted to a suprapubic tube. He is routinely on Plavix. The medication has just been stopped today. He has not had any prior abdominal surgery. Review of Systems Constitutional Constitutional: Denies chills and Denies fever(s) Cardiovascular Cardiovascular: Denies chest pain and Denies irregular heart rhythm Respiratory Respiratory: Denies cough, Denies hemoptysis and Denies excessive phlegm production Gastrointestinal Gastrointestinal: Reports fecal incontinence and Denies vomiting Neurologic Neurologic: Reports localized weakness and Denies convulsions Comments: Left hemiparesis [facility] All Active Problems (Updated 07/01/21 @ 15:17 by Fab Griffin MD) 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 (Acute) Palliative care patient (Acute) Discharge planning issues (Acute) Encounter for medical assessment (Acute) DNI (do not intubate) (Acute) DNR (do not resuscitate) (Acute) Bedbound (Acute) CVA (cerebral vascular accident) (Chronic) Hemiplegia affecting left dominant side (Acute) Medical History Alcohol abuse Chronic viral hepatitis C Difficulty in walking Essential hypertension Full incontinence of feces Hemiparesis Hx of TIA (transient ischemic attack) and stroke MRSA (methicillin resistant Staphylococcus aureus) Other abnormalities of gait and mobility Other chronic pain Pain in right hip Tinea unguium Tobacco use Unspecified osteoarthritis, unspecified site Unspecified urinary incontinence Very low level of personal hygiene Surgical History History of hip surgery Hx of cataract surgery Social History Smoking/Tobacco Use Status: Current every day Smoking risk assessment performed?: Yes Alcohol Intake: current Drug use: Occasionally Substance use type: does not use Do you feel safe at home: Yes Additional Social history: pt wants to be at home Exam Narrative Exam Narrative: He is supine in his bed. He does not appear septic or toxic His vital signs are documented elsewhere His abdomen is soft with no bladder distention He is circumcised. There is ventral erosion of the urethra related to an indwelling Turner catheter. The catheter is draining clear urine He is awake and alert Results Last Vital Signs Temp 36.7 C 07/01/21 08:46 Pulse 69 07/01/21 08:46 Resp 18 07/01/21 08:46 BP 113/70 07/01/21 08:46 Pulse Ox 93 07/01/21 08:46
[2021-07-01 15:19] VITALS: BP 102/67; PULSE 57; RESP 17; TEMP 36.1; O2SAT 96
--- NOTE | 2021-07-01 16:49 | PDOC.CMPRO ---
- If Service Date Differs Date of service: 07/01/21 Time of Service: 16:49 Care Management Progress Note S/O: Gama had a consultation with Urology today, and will have a suprapubic catheter placed at the end of the week. He will remain at [facility] for medication management, PT and OT. CM discussed his referral with [facility] today, who declined him for admission. CM will discuss other SNF options with Gama for his discharge plan. CM spoke to the Chronic Insulation Board Back Tender at his PCP office today, Maris, who stated that she continues to work on his plan to be accepted to an AFC program in his own home, with his caregiver, Dave. CM will continue to follow. A: Gama is a 71 year old male admitted to [facility] on 06/29/21 with failure to thrive. P: Gama will either return home with 24/7 care vs SNF for short term rehab until caregivers are set up. He will likely be transported via EMS, as he is bed bound. He will follow up with his PCP, Palliative care, and his discharge plan of care. CM will continue to follow.
[2021-07-01 23:36] VITALS: BP 113/72; PULSE 62; RESP 18; TEMP 36.5; O2SAT 95
[2021-07-02 07:19] VITALS: BP 114/69; PULSE 58; RESP 17; TEMP 36.7; O2SAT 97
[2021-07-02] MEDS: Nicotine 14 MG/24 HR PATCH TD (08:35)
[2021-07-02] MEDS: Metoprolol CR 50 MG TABCR PO (08:36)
[2021-07-02] MEDS: Atorvastatin 20 MG TAB PO (08:36)
[2021-07-02] MEDS: Lisinopril 5 MG TAB PO (08:36)
[2021-07-02] MEDS: Gabapentin 100 MG CAP PO ×3 (08:36→19:49)
[2021-07-02] MEDS: Diclofenac 1% Gel 100 GM TUBE TP ×3 (08:37→19:49)
[2021-07-02] MEDS: Thiamine 100 MG TAB PO (08:37)
--- NOTE | 2021-07-02 10:36 | CMPROGNOTE_ITS ---
- If Service Date Differs Date of service: 07/02/21 Time of Service: 10:36 Care Management Progress Note S/O: Gama was lying in bed when CM met with him. He reported that he is doing ok today. He was pleasant and engaged in conversation. CM informed him that he is not able to go to [place]. He stated that he talked to his caregiver, Dave, who is willing to continue to care for him, and plans to pick him up on Wednesday. CM discussed having a plan in case Dave is unable to care for him. Gama reviewed the list of facilities and chose 4 to send referrals to, which were his preferences. CM will send his referral to those facilities and inquire about admission. CM attempted to call Dave, and he was not available. CM will continue to follow. A: Gama is a 71 year old male admitted to [facility] on 06/29/21 with failure to thrive. P: Gama will either return home with 24/7 care vs SNF for short term rehab until caregivers are set up. He will likely be transported via EMS, as he is bed bound. He will follow up with his PCP, Palliative care, and his discharge plan of care. CM will continue to follow.
--- NOTE | 2021-07-02 11:40 | PT.INTREAT ---
Date of service: 07/02/21 Time of Service: 11:40 PT Notes Visit Reasons: Failure to Thrive Physical Therapy Inpatient Treatment Note Date: 07/02/2021 Precautions: Fall. Standard. Activity as tolerated. Up on chair for meals, use STEDY lift for all transfers. Subjective: States that he did not have enough rest the previous night. Needed encouargement to participate in both sessions today. Objective: General Observation: Supine in bed. Turner catheter in place. Mental Status: Alert and oriented as to person, place, time, and purpose. Able to pay attention but has a difficulty focusing on task. Also has difficulty executing motor movements. Pain: Moderate pain in the left thigh at rest and with movement Bed Mobility/Transfers: Rolling minimal assist Supine to sit minimal assist Sit to stand STEDY lift with assist of 2 Stand to sit STEDY lift with assist of 2 Bed to chair STEDY lift with assist of 2 GAIT: Unable and unsafe at this time Balance: Static Sitting: Fair Dynamic Sitting: Fair Static Standing: Poor Dynamic Standing: Poor Assessment: Worsening pusher syndrome precluded transfer from bed to chair using FWW due to increased risk for falls and patient/staff safety issue. Patient was downgraded to use of STEDY lift for all transfers as of today. COntinued difficulty with movement initiation and execution. DISCHARGE RECOMMENDATIONS: [] Home with no services [] [] Home with services [specify] [] Home with outpatient PT [] [X] SNF for continued rehabilitation. Patient will benefit from usp facility placement for continued skilled physical therapy services in order to progress mobility level, strength, and balance in preparation for a safe discharge to home. [] Retirement Care [] [X] SNF versus LTC based on ability to participate and progress. TREATMENT CODE/TIME: Session 1??[id number] x 33 minutes beginning at 11:40 AM. Session 2??Refused any offer of activity in the PM.
--- NOTE | 2021-07-02 14:02 | PGE_ITS ---
Date of Service Date of service: 07/02/21 Time of Service: 14:03 Assessment and Plan Assessment and plan (1) Encounter for medical assessment: Status: Acute Assessment and plan: Brought to hospital d/t lack of caregiver; requires sameera lift or 2 people to help with transferring. S/P CVA. Will have PT/OT evaluations. PT recommending further PT. See Discharge planning (2) Bedbound: Status: Acute Assessment and plan: He is somewhat inconsistent on describing what he is and isn't capable of. He states he can transfer, but the caregiver he had has been using the sameera lift for transfers. PT/OT following. 2 person assist for standing static. No skin breakdown noted. He had been at a SNF since at least November of 2019, according to daughter, until late April. (3) CVA (cerebral vascular accident): Status: Chronic Assessment and plan: Cont home dose of Plavix, atorvastatin. (4) Hemiplegia affecting left dominant side: Status: Acute Assessment and plan: Pt is right handed. PT/OT evals. requested. (5) Alcohol abuse: Assessment and plan: Cont thiamine as per home meds. Questionably some cognitive concerns that could be related to the previous alcohol abuse disorder. (6) Chronic viral hepatitis C: Assessment and plan: Low AST/ALT in Jan. Pt declining lab draws. (7) Essential hypertension: Assessment and plan: Cont metoprolol and lisinopril. Currently controlled. Monitor. (8) Tobacco use: Assessment and plan: Nicoderm patch 14mg daily. (9) Discharge planning issues: Status: Acute Assessment and plan: Clarification on home/caregiver status. His hearing healthcare practitioner at his PCP office has been working with his caregiver to make improvements to his home so it can be classified as an AFC home. It is apparently close to being classified as such. His caregiver did not quit; had car issues and could not make it to the patients home but did call for a welfare check. He has now stated he is agreeable to a temporary stay at a SNF until his home is ready. Referral made to [facility]; his choice of facilities. 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 Dr Griffin has scheduled placement of a suprapubic catheter this Wednesday. Subjective Subjective Patient reports: no new complaints, tolerating a regular diet and afebrile; denies nausea, vomiting and shortness of breath Interval history since last seen: He continues to voice a desire to go home. No aggressive behavior. Exam Narrative Exam Narrative: Elderly male, smiling. Lying in bed. Const General: cooperative and no acute distress Nutritional Appearance: average body habitus Orientation: alert, oriented to person and oriented to place [facility] Head: normocephalic and atraumatic Neck Neck: full ROM and no JVD Resp Effort & Inspection: normal respiratory effort Auscultation: clear to auscultation bilaterally Cardio Rate: regular rate Rhythm: regular rhythm Heart Sounds: S1 normal and S2 normal GI Palpation: soft and nontender Auscultation: normal bowel sounds Skin General skin exam: no rashes or lesions noted Neuro Cranial Nerves: facial strength normal Speech: abnormal speech slurred (mild) Motor: strength 5/5 throughout (Able to extend both hips and lift legs off bed. ) and other (Proximal LLE 2/5. Left 2nd and 3rd digits in fixed extension. ) Objective Last Vital Signs Temp 36.7 C 07/02/21 07:19 Pulse 58 L 07/02/21 07:19 Resp 17 07/02/21 07:19 BP 114/69 07/02/21 07:19 Pulse Ox 97 07/02/21 07:19
--- NOTE | 2021-07-02 14:23 | OT.INNT ---
Date of service: 07/02/21 Time of Service: 09:00 Occupational Therapy Notes 07/02/21 Pt refused OT services x3 times this morning. OT will attempt to resume services tomorrow. Mandy Camilo OTR/L
--- NOTE | 2021-07-02 17:04 | PHA.REVIEW ---
Pharmacy Admission Review - Admission Clinical Review (Last Reviewed 06/29/21 @ 12:49 by Sridhar Beasley MD) 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 (Acute) Palliative care patient (Acute) Discharge planning issues (Acute) Encounter for medical assessment (Acute) Bedbound (Acute) Hemiplegia affecting left dominant side (Acute) egg Allergy (Severe, Unverified 06/28/21 23:21) Anaphylaxis varenicline [From Chantix] Allergy (Unverified 06/28/21 23:21) liver failure Resuscitation Status DNR/DNI Height 5 ft 11 in Weight 77.6 kg - Renal Dosing Medications needing adjustments: Reviewed List of meds needing interventions: eCrCl 38 ml/min - Anticoagulation DVT Prophylaxis: N/A Therapeutic Anticoagulation: N/A (increased risk for falls) - Opiate Usage Evaluate Pain Scale/Pains Meds: N/A - Relevant Labs Electrolytes, C-Reactive P, ESR: N/A - DM Control Insulin Dosing: N/A - Heart Failure/FL EF%, SAMIA's, B-Blockers, Diuretics: Reviewed (metoprolol and lisinopril) - BP Control BP Control: Blood Pressure 114/69 If elevated: Reviewed - Qtc Review If Elevated: N/A - IV to PO Switch IV Medications: Reviewed - Home Meds Home Med List reviewed: Reviewed Relevent Home Meds Not ordered & why?: all ordered
[2021-07-02 19:40] VITALS: BP 104/66; PULSE 61; RESP 19; TEMP 36.7; O2SAT 94
[2021-07-03 02:46] VITALS: BP 97/63; PULSE 63; RESP 19; TEMP 35.8; O2SAT 95
[2021-07-03 07:49] VITALS: BP 112/69; PULSE 60; RESP 18; TEMP 36.5; O2SAT 98
[2021-07-03] MEDS: Gabapentin 100 MG CAP PO ×3 (08:31→19:21)
[2021-07-03] MEDS: Nicotine 14 MG/24 HR PATCH TD (08:31)
[2021-07-03] MEDS: Atorvastatin 20 MG TAB PO (08:31)
[2021-07-03] MEDS: Lisinopril 5 MG TAB PO (08:32)
[2021-07-03] MEDS: Thiamine 100 MG TAB PO (08:32)
[2021-07-03] MEDS: Metoprolol CR 50 MG TABCR PO (08:32)
[2021-07-03] MEDS: Diclofenac 1% Gel 100 GM TUBE TP ×3 (08:33→19:21)
--- NOTE | 2021-07-03 09:22 | OT.INNT ---
Date of service: 07/03/21 Time of Service: 07:45 Occupational Therapy Notes 07/03/21 Pt refuses OT care, reporting that he is not interested in OT services. Mandy Camilo, OTR/L
--- NOTE | 2021-07-03 09:43 | PT.INTREAT ---
Date of service: 07/03/21 Time of Service: 09:43 PT Notes Visit Reasons: Failure to Thrive Physical Therapy Inpatient Treatment Note Date: 07/03/2021 Precautions: Fall. Standard. Activity as tolerated. Up on chair for meals,? use STEDY lift for all transfers. Subjective: Refused to transfer to chair using walker today stating that he is very tired. Agreed to using STEDY lift from bed to chair. Objective: General Observation: Supine in bed.? Turner catheter in place. Mental Status: Alert and oriented as to person, place, time, and purpose. Able to pay attention but has a difficulty focusing on task.? Also has difficulty executing motor movements. Pain: Moderate pain in the left thigh at rest and with movement Bed Mobility/Transfers: Supine to sit moderate assist Sit to stand STEDY lift with assist of 2 Stand to sit STEDY lift with assist of 2 Bed to chair STEDY lift with assist of 2 GAIT: Unable and unsafe at this time Balance: Static Sitting: Fair Dynamic Sitting: Fair Static Standing: Poor Dynamic Standing: Poor Assessment: Patient is becoming resistant with attempts at use of walker to transfer from chair to bed. Downgraded to STEDY lift for all transfers for patient and staff safety. Will plan to continue to work on increasing strength while progressing sitting/standing balance and tolerance. DISCHARGE RECOMMENDATIONS: [] ? Home with no services [] [] ? Home with services [specify] [] ? Home with outpatient PT [] [X] ? SNF for continued rehabilitation.? Patient will benefit from fpc facility placement for continued skilled physical therapy services in order to progress mobility level, strength, and balance in preparation for a safe discharge to home. [] ? [employer] [facility] Care [] [X] ? SNF versus LTC based on ability to participate and progress.? TREATMENT CODE/TIME: 22206 x 17 minutes beginning at 9:43 AM.
--- NOTE | 2021-07-03 10:18 | W.PM.PROGNOT ---
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 Was standing/transferring with assist of 2, but PT today noted worsening Pusher syndrome precludes safe transfer. Plan STEDY lift for all transfers as of today. Has sameera lift at home that caregiver uses Turn/reposition to avoid skin breakdown. 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 Urology planning to place suprapubic catheter tomorrow. (3) Palliative care patient: Status: Acute Assessment and plan: Pt is a DNR/DNI (4) Hemiplegia affecting left dominant side: Status: Acute Assessment and plan: See above (5) Essential hypertension: Assessment and plan: Cont metoprolol and lisinopril. Monitor. (6) Alcohol abuse: Assessment and plan: Cont thiamine (7) Discharge planning issues: Status: Acute Assessment and plan: His caregiver is willing to have him return home while the home is progressing toward [facility] certification. (8) Tobacco use: Assessment and plan: Cont nicoderm patch Subjective Subjective Patient reports: no new complaints, tolerating a regular diet and afebrile; denies nausea, vomiting or shortness of breath Exam Narrative Exam Narrative: Sitting in chair. Conversant. Const General: cooperative and no acute distress Nutritional Appearance: average body habitus Orientation: alert, oriented to person and oriented to place Eyes General: appearance normal, both eyes and all related structures Sclera: sclerae normal Resp Effort & Inspection: normal respiratory effort Auscultation: clear to auscultation bilaterally Cardio Rate: regular rate Rhythm: regular rhythm Heart Sounds: S1 normal and S2 normal GI Palpation: soft and nontender Skin General skin exam: no rashes or lesions noted Extrem General: no pedal edema and no calf tenderness Objective Last Vital Signs Temp 36.5 C 07/03/21 07:49 Pulse 60 07/03/21 07:49 Resp 18 07/03/21 07:49 BP 112/69 07/03/21 07:49 Pulse Ox 98 07/03/21 07:49
--- NOTE | 2021-07-03 11:12 | PDOC.CMPRO ---
- If Service Date Differs Date of service: 07/03/21 Time of Service: 11:12 Care Management Progress Note S/O: CM sent referrals to [facility], [facility], and [facility], at the request of Gama. ALE attempted to call Dave, his caregiver, who Gama reports will remain his caregiver. Gama stated that Dave is planning to pickle pumper Gama once he is medically cleared. Per report, he is scheduled to have a superpubic catheter placed tomorrow by Dr. Griffin. ALE will continue to follow. A: Gama is a 71 year old male admitted to [facility] on 06/29/21 with failure to thrive. P: Gama will either return home with 24/7 care vs SNF for short term rehab until caregivers are set up. He will likely be transported via EMS, as he is bed bound. He will follow up with his PCP, Palliative care, and his discharge plan of care. CM will continue to follow.
[2021-07-03 16:05] VITALS: BP 94/58; PULSE 54; RESP 17; TEMP 36.6; O2SAT 96
[2021-07-03 23:10] VITALS: BP 91/51; PULSE 54; RESP 17; TEMP 36; O2SAT 94
[2021-07-04] VITALS (8 sets, daily range): BP systolic 81–110; BP diastolic 40–57; PULSE 44–56; RESP 15–18; TEMP 35.6–36.7; O2SAT 93–100; BMI 23.8
[2021-07-04] MEDS: Acetaminophen 325 MG TAB PO (03:46)
--- NOTE | 2021-07-04 07:05 | ANES.PREOP_ITS ---
General Info Date of Service Date Performed: 07/04/21 Height: 5 ft 11 in Weight: 77.6 kg Body Mass Index (BMI): 23.8 Surgical Procedure: Operation Date: 07/04/21 07:40 Proposed Procedure Side Surgeon p Cystoscopy/Suprapubic Tube Insertion Fab Griffin MD Meds Allergies and Home Medications Allergies Allergy/AdvReac Type Severity Reaction Status Date / Time egg Allergy Severe Anaphylaxis Unverified 06/28/21 23:21 varenicline [From Chantix] Allergy liver Unverified 06/28/21 23:21 failure Home Medication Medication Instructions Recorded clopidogrel 75 mg tablet (Plavix) 75 mg PO DAILY 06/05/20 diclofenac sodium 1 % topical gel 2 g TOPICAL TID g 06/05/20 gabapentin 100 mg capsule 100 mg PO TID 06/05/20 thiamine HCl (vitamin B1) 100 mg 100 mg PO DAILY 06/05/20 tablet atorvastatin 20 mg tablet 20 mg PO DAILY 06/28/21 lisinopril 5 mg tablet 5 mg PO DAILY AM 06/28/21 metoprolol succinate 50 mg 100 mg PO DAILY 06/28/21 tablet,extended release 24 hr Current Visit Medications: Current Medications Generic Name Dose Route Start Last Admin Trade Name Freq PRN Reason Stop Dose Admin Acetaminophen 0 mg 06/29/21 11:06 07/04/21 03:46 Acetaminophen 325 Mg Tab PO 650 mg Q4H PRN PRN Administration Atorvastatin Calcium 20 mg 06/30/21 08:30 07/03/21 08:31 Atorvastatin 20 Mg Tab PO 20 mg DAILY YOGI Administration Clopidogrel Bisulfate 75 mg 06/30/21 08:30 07/01/21 08:12 Clopidogrel 75 Mg Tab PO 75 mg DAILY YOGI Administration Diclofenac Sodium 2 gm 06/30/21 08:30 07/03/21 19:21 Diclofenac 1% Gel 100 Gm Tube TP 1 applic TID YOGI Administration Dimethicone/Zinc Oxide 0 gm 06/29/21 11:01 06/29/21 12:48 Varun Protect Cream 142 Gm Tube TP 1 applic PRN PRN Administration Docusate Sodium 50 mg 06/29/21 20:00 07/03/21 19:24 Docusate Sodium 100 Mg/10 Ml Cup PO Not Given BID YOGI Gabapentin 100 mg 06/29/21 14:00 07/03/21 19:21 Gabapentin 100 Mg Cap PO 100 mg TID YOGI Administration Cefazolin Sodium/Dextrose 2 gm in 50 mls @ 100 mls/hr 07/04/21 06:00 Ancef Duplex IVPB 07/04/21 16:00 PREOP YOGI Lisinopril 5 mg 06/30/21 08:30 07/03/21 08:32 Lisinopril 5 Mg Tab PO 5 mg DAILY YOGI Administration Magnesium Hydroxide 30 ml 06/29/21 11:06 Milk Of Magnesia 30 Ml Cup PO DAILY PRN PRN Metoprolol Succinate 50 mg 06/30/21 08:30 07/03/21 08:32 Metoprolol Cr 50 Mg Tabcr PO 50 mg DAILY YOGI Administration Nicotine 14 mg 06/30/21 12:10 07/03/21 08:31 Nicotine 14 Mg/24 Hr Patch TD 14 mg DAILY YOGI Administration Polyethylene Glycol 17 gm 06/29/21 11:06 Polyethylene Glycol 3350 17 Gm Packet PO DAILY PRN PRN Constipation Thiamine HCl 100 mg 06/30/21 08:30 07/03/21 08:32 Thiamine 100 Mg Tab PO 100 mg DAILY YOGI Administration [facility] Active Problems Active Problems: Problem Status Onset Code Decreased mobility R26.89 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 T83.89XA, N36.8 Palliative care patient Z51.5 Discharge planning issues Z02.9 Encounter for medical assessment Z00.8 DNI (do not intubate) Z78.9 DNR (do not resuscitate) Z66 Bedbound Z74.01 CVA (cerebral vascular accident) I63.9 Hemiplegia affecting left dominant side G81.92 Medical History Medical History Alcohol abuse Chronic viral hepatitis C Difficulty in walking Essential hypertension Full incontinence of feces Hemiparesis Hx of TIA (transient ischemic attack) and stroke MRSA (methicillin resistant Staphylococcus aureus) Other abnormalities of gait and mobility Other chronic pain Pain in right hip Tinea unguium Tobacco use Unspecified osteoarthritis, unspecified site Unspecified urinary incontinence Very low level of personal hygiene Surgical History Surgical History History of hip surgery Hx of cataract surgery Tobacco Smoking/Tobacco Use Status: Current every day Alcohol Alcohol Intake: current Substance Use Substance use: Occasionally Substance use type: does not use Vital Signs and Lab Results Vital Signs Most Recent Vital Signs in EMR: Most Recent Vital Signs Temp Pulse Resp BP Pulse Ox 36.0 C L 54 L 17 91/51 L 94 07/03/21 23:10 07/03/21 23:10 07/03/21 23:10 07/03/21 23:10 07/03/21 23:10 Lab Results Blood Type / Crossmatch: No Data to Display Complete Blood Count: No Data to Display Complete Metabolic Panel: No Data to Display Liver Function Panel: No Data to Display Coagulation Panel: No Data to Display Cardiac Panel: No Data to Display Arterial Blood Gas: No Data to Display Venous Blood Gas: No Data to Display Pancreas Panel: No Data to Display Thyroid Panel: No Data to Display Infectious Disease: Coronavirus (COVID-19)(PCR) Negative (Negative) 06/29/21 00:05 06/29/21 Coronavirus 2019 Source Nasal/Nares 06/29/21 00:05 06/29/21 Blood Cultures: No Data to Display Toxicology Panel: No Data to Display Anesthesia Assessment and Plan Anesthesia History Personal History: No History of Anesthesia Complications Family History: No Family History of Anesthesia Complications Exercise Tolerance Exercise Tolerance: Metabolic Equivalents>4 Pertinent Negatives Pertinent Negatives: No Symptoms of GERD and No Major Pulmonary Symptoms or Complaints Cardiac & Pulmonary Exam Cardiac Exam: Normal S1/S2 Heart Sounds Pulmonary Exam: Clear Bilateral Breath Sounds Implantable Cardiac Device Does patient have a Pacemaker or an ICD?: No Airway Exam Known Difficult Airway: No Mallampati Class: 3 Mouth Opening: Normal (> 3cm) Thyromental Distance: Greater than 3 cm Neck Range of Motion: Full ROM Neck Circumference: Normal Teeth Condition: Edentulous ASA Classification ASA Score: ASA 3 Emergency Case?: No NPO Status NPO Status: NPO Clears >2 hours, Solids >8 hours Anesthesia Plan Resuscitation Status: DNR Maintained Throughout Perioperative Period (As per patient wish) Anesthesia Technique: General Anesthesia Airway Planned: Natural Airway Monitors Used: Standard Monitors
--- NOTE | 2021-07-04 07:08 | W.PM.PROGNOT ---
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
[2021-07-04] MEDS: Lactated Ringers 1,000 ML 50 ML IV (07:57)
[2021-07-04] MEDS: ceFAZolin 2 GM/50 ML BAG IVPB (08:22)
--- NOTE | 2021-07-04 08:42 | W.PM.OP ---
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 He has been catheter dependent for a few years now. He has had a urethral catheter which has caused urethral erosion. He presents now for placement of a suprapubic tube Findings: urethral erosion Procedure Description: The patient was brought to the operating room on 07/04/2021. He was given preoperative IV antibiotics. After successful induction of general anesthesia without intubation, he was placed in the dorsal lithotomy position. His indwelling catheter was removed. His genitalia and suprapubic area were prepped and draped. 2% Xylocaine jelly was instilled into the urethra. The urethral meatus was now below the level of the coronal sulcus due to urethral erosion. The suprapubic area was injected with half percent Marcaine for a field block. The curved Lowsley tractor was then passed through the urethra into the bladder. The tip of the Lowsley tractor was held up against the abdominal wall. An incision was made so that we were able to bring the tip of the Lowsley tractor onto our surgical field. The jaws were opened and a 16 Northern Irish catheter was grasped and pulled back down through the suprapubic tract, into the bladder and out the urethra. The catheter was released and cystoscopy was performed while we positioned the catheter. Once the catheter was seen within the bladder, the catheter balloon was inflated with 10 cc of sterile water. The catheter was hooked to gravity drainage. The patient tolerated the procedure well with no complications. He was taken to the recovery room in stable condition.
[2021-07-04] MEDS: ePHEDrine 25 MG/5 ML Syringe IVP (08:53)
[2021-07-04] MEDS: ACETAMINOPHEN 1,000 MG/100 ML BTL 400 MG IVPB (09:03)
--- NOTE | 2021-07-04 09:25 | W.ANESPOSTOP ---
Postoperative Evaluation Date, Time and Location Date Performed: 07/04/21 Time Performed: 09:07 Patient Location: PACU Vital Signs Most Recent Imported Vital Signs: Most Recent Vital Signs Temp Pulse Resp BP Pulse Ox 36.4 C L 49 L 18 96/57 L 100 07/04/21 09:07 07/04/21 09:07 07/04/21 09:07 07/04/21 09:07 07/04/21 09:07 Pain Score Most Recent Pain Score: Most Recent Pain Score Pain Level 2 07/04/21 09:07 Assessment Mental Status: Awake (Alert & Oriented to Patient Baseline) Airway and Respiratory Function: Patent airway with normal (patient baseline) respiratory exam Cardiovascular Function: Hemodynamically Stable Hydration Status: Adequately Hydrated Nausea & Vomiting: No Nausea or Vomiting Pain: Pain is tolerable per patient (Reporting stinging. IV Tylenol administered) Peripheral Nerve Block: Patient did not receive a nerve block Postoperative Comments:: Patient back to his baselined, seen in PACU. Appropriate for return to floor.
[2021-07-04] MEDS: Docusate Sodium 100 MG/10 ML CUP 50 MG PO (09:52)
[2021-07-04] MEDS: Metoprolol CR 50 MG TABCR PO (09:53)
[2021-07-04] MEDS: Gabapentin 100 MG CAP PO ×3 (09:53→19:24)
[2021-07-04] MEDS: Diclofenac 1% Gel 100 GM TUBE TP ×2 (09:53→19:23)
[2021-07-04] MEDS: Thiamine 100 MG TAB PO (09:53)
[2021-07-04] MEDS: Lisinopril 5 MG TAB PO (09:53)
[2021-07-04] MEDS: Atorvastatin 20 MG TAB PO (09:53)
[2021-07-04] MEDS: Nicotine 14 MG/24 HR PATCH TD (09:54)
--- NOTE | 2021-07-04 13:50 | W.PM.PROGNOT ---
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 Was standing/transferring with assist of 2, but PT today noted worsening Pusher syndrome precludes safe transfer. Plan STEDY lift for all transfers as of today. Has sameera lift at home that caregiver uses Turn/reposition to avoid skin breakdown. 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 Urology placed suprapubic catheter today. No pain. (3) Palliative care patient: Status: Acute Assessment and plan: Pt is a DNR/DNI (4) Hemiplegia affecting left dominant side: Status: Acute Assessment and plan: See above (5) Essential hypertension: Assessment and plan: Cont metoprolol and lisinopril. Monitor. (6) Alcohol abuse: Assessment and plan: Cont thiamine (7) Discharge planning issues: Status: Acute Assessment and plan: His caregiver is actually not willing to have patient return home under his care at this time d/t no payer source in place. He was accepted at a facility but then that facility had a positive Covid patient and cannot take him at this time. A referral is still pending at another facility. (8) Tobacco use: Assessment and plan: Cont nicoderm patch Subjective Subjective Patient reports: no new complaints, tolerating a regular diet and afebrile; denies shortness of breath Exam Narrative Exam Narrative: Sitting in chair. Conversant. Const General: cooperative and no acute distress Nutritional Appearance: average body habitus Orientation: alert, oriented to person and oriented to place [facility] Head: normocephalic and atraumatic Eyes General: appearance normal, both eyes and all related structures Sclera: sclerae normal Neck Neck: full ROM and no JVD Resp Effort & Inspection: normal respiratory effort Auscultation: clear to auscultation bilaterally Cardio Rate: regular rate Rhythm: regular rhythm Heart Sounds: S1 normal and S2 normal GI Palpation: soft and nontender Auscultation: normal bowel sounds Skin General skin exam: no rashes or lesions noted Neuro Cranial Nerves: facial strength normal Speech: abnormal speech slurred (mild) Motor: strength 5/5 throughout (Able to extend both hips and lift legs off bed. ) and other (Proximal LLE 2/5. Left 2nd and 3rd digits in fixed extension. ) Extrem General: no pedal edema and no calf tenderness Objective Last Vital Signs Temp 35.6 C L 07/04/21 11:48 Pulse 52 L 07/04/21 11:48 Resp 18 07/04/21 11:48 BP 101/52 L 07/04/21 11:48 Pulse Ox 96 07/04/21 11:48
--- NOTE | 2021-07-04 16:14 | CMPROGNOTE_ITS ---
- If Service Date Differs Date of service: 07/04/21 Time of Service: 16:14 Care Management Progress Note S/O: Gama was sitting up in his chair when CM met with him. He reported that he is doing better than half. He had a procedure to place a superpubic catheter today, which went well. CM talked to Gama Acosta's caregiver, who is not willing to bring him home before he is has an agreement to be paid. CM sent referrals to several SNF's, waiting to hear where there are available bed offers in order to place him until his home is approved in an [facility] home program. CM called his daughter and left a message, providing an update. CM called Aditi Bowsell Ean/SAMMIE to inquire about [facility] eligibility as well. CM will continue to follow. A: Gama is a 71 year old male admitted to [facility] on 06/29/21 with failure to thrive. P: Gmaa will either return home with 24/7 care vs SNF for short term rehab until caregivers are set up. He will likely be transported via EMS, as he is bed bound. He will follow up with his PCP, Palliative care, and his discharge plan of care. CM will continue to follow.
[2021-07-05 00:03] VITALS: BP 116/59; PULSE 65; RESP 14; TEMP 36; O2SAT 94
[2021-07-05 07:49] LABS: Abs Immature Grans 0.02 10^3/uL (0.0-0.06); Absolute Basophil Count 0.02 10^3/uL (0.0-0.2); Absolute Eosinophil Count 0.33 10^3/uL (0.0-0.7); Absolute Monocyte Count 0.66 10^3/uL (0.1-0.8); Absolute Neutrophil Count 5.86 10^3/uL (1.2-6.7); Basophils % 0.2; Eosinophils % 3.6; HCT 34.8 % (40.0-50.0); HGB 11.1 g/dL (13.5-17.5); Immature Grans % 0.2; Lymphocytes % 24.2; MCH 30.5 pg (27.0-33.0); MCHC 31.9 % (32.0-36.0); MCV 95.6 fL (80-95); MPV 10.7 fL (8.0-11.0); Monocytes % 7.3; Neutrophils % 64.5; Nucleated RBC 0 %; Platelet Count 205 10^3/uL (130-400); RBC 3.64 10^6/uL (4.36-5.78); RDW 13.3 % (11.8-14.1); RDW-SD 46.8 fL; WBC 9.09 10^3/uL (4.4-10.8)
[2021-07-05 08:02] VITALS: BP 102/70; PULSE 63; RESP 18; TEMP 36.1; O2SAT 96
[2021-07-05 08:17] LABS: ALT 13 U/L (16-63); AST 13 U/L (15-37); Albumin 3.2 g/dL (3.4-5.0); Alkaline Phosphatase 64 U/L (46-116); Anion Gap 6.2 mmol/L (3-11); BUN 30 mg/dL (7-18); Bilirubin, Total 0.4 mg/dL (0.2-1.0); CO2 24.8 mmol/L (21.0-32.0); CREATININE 1.8 mg/dL (0.70-1.30); Calcium 8.6 mg/dL (8.5-10.1); Chloride 106 mmol/L (98-107); Estimated GFR 37.17 (mL/min/1.73m2); Glucose 92 mg/dL (74-106); Potassium 4.8 mmol/L (3.5-5.1); Sodium 137 mmol/L (136-145)
[2021-07-05] MEDS: Nicotine 14 MG/24 HR PATCH TD (08:29)
[2021-07-05] MEDS: Gabapentin 100 MG CAP PO ×3 (08:29→20:02)
[2021-07-05] MEDS: Acetaminophen 325 MG TAB PO (08:29)
[2021-07-05] MEDS: Thiamine 100 MG TAB PO (08:29)
[2021-07-05] MEDS: Diclofenac 1% Gel 100 GM TUBE TP ×2 (08:31→20:02)
[2021-07-05] MEDS: Metoprolol CR 50 MG TABCR PO (08:31)
[2021-07-05] MEDS: Lisinopril 5 MG TAB PO (11:03)
[2021-07-05] MEDS: Atorvastatin 20 MG TAB PO (11:03)
--- NOTE | 2021-07-05 13:59 | W.PM.PROGNOT ---
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 Was standing/transferring with assist of 2, but PT today noted worsening Pusher syndrome precludes safe transfer. Plan STEDY lift for all transfers as of today. Has sameera lift at home that caregiver uses Turn/reposition to avoid skin breakdown. 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 Urology placed suprapubic catheter today. No pain. (3) Palliative care patient: Status: Acute Assessment and plan: Pt is a DNR/DNI (4) Hemiplegia affecting left dominant side: Status: Acute Assessment and plan: See above (5) Essential hypertension: Assessment and plan: Cont metoprolol and lisinopril. Monitor. (6) Alcohol abuse: Assessment and plan: Cont thiamine (7) Discharge planning issues: Status: Acute Assessment and plan: His caregiver is actually not willing to have patient return home under his care at this time d/t no payer source in place. He was accepted at a facility but then that facility had a positive Covid patient and cannot take him at this time. A referral is still pending at another facility. discussed with Dr Kumar (8) Tobacco use: Assessment and plan: Cont nicoderm patch Subjective Subjective Patient reports: no new complaints, tolerating liquids well, tolerating a regular diet, bowel movement (yesterday) and afebrile; denies shortness of breath Interval history since last seen: medically stable, states he just not happy about being here. Exam Const General: cooperative, no acute distress, frail appearing and ill appearing chronically Nutritional Appearance: average body habitus Orientation: alert, oriented to person and oriented to place [facility] Head: normocephalic and atraumatic Ears: hearing grossly normal bilaterally Mouth: lip abnormal and tongue abnormal Teeth and gingiva: poor dentition Eyes General: appearance normal, both eyes and all related structures Sclera: sclerae normal Neck Neck: full ROM and no JVD Resp Effort & Inspection: normal respiratory effort and able to speak in complete sentences Auscultation: clear to auscultation bilaterally and diminished lung sounds Cardio Rate: regular rate Rhythm: regular rhythm Heart Sounds: S1 normal, S2 normal and murmur GI Palpation: soft and nontender Auscultation: normal bowel sounds Skin General skin exam: no rashes or lesions noted Neuro General: patient oriented x3 and moves all extremities Cranial Nerves: facial strength normal Speech: abnormal speech slurred (mild) Gait: other Motor: strength 5/5 throughout (Able to extend both hips and lift legs off bed. ) and other (Proximal LLE 2/5. Left 2nd and 3rd digits in fixed extension. ) Extrem General: no pedal edema and no calf tenderness Psych Appearance: disheveled Speech and Movement: slurred speech (not from alcohol but from lip and tongue abnormality) Mood: congruent mood Attitude: guarded Objective Last Vital Signs Temp 36.1 C L 07/05/21 08:02 Pulse 63 07/05/21 08:02 Resp 18 07/05/21 08:02 BP 102/70 07/05/21 08:02 Pulse Ox 96 07/05/21 08:02 Laboratory Results - last 24 hr 07/05/21 07/05/21 07:40 07:40 WBC 9.09 RBC 3.64 L Hgb 11.1 L Hct 34.8 L MCV 95.6 H MCH 30.5 MCHC 31.9 L RDW 13.3 Plt Count 205 MPV 10.7 Immature Gran % 0.2 Neutrophils % 64.5 Lymphocytes % 24.2 Monocytes % 7.3 Eosinophils % 3.6 Basophils % 0.2 Nucleated RBC % 0 Absolute Neutrophils 5.86 Absolute Lymphocytes 2.20 Absolute Monocytes 0.66 Absolute Eosinophils 0.33 Absolute Basophils 0.02 Sodium 137 Potassium 4.8 Chloride 106 Carbon Dioxide 24.8 Anion Gap 6.2 BUN 30 H Creatinine 1.8 H Estimated GFR/1.73 m2 37.17 Glucose 92 Calcium 8.6 Total Bilirubin 0.4 AST 13 L ALT 13 L Alkaline Phosphatase 64 Total Protein 7.0 Albumin 3.2 L
[2021-07-05 15:12] VITALS: BP 104/59; PULSE 73; RESP 17; TEMP 36.7; O2SAT 94
[2021-07-05] MEDS: Normal Saline Flush 10 ML SYR IVP (20:07)
[2021-07-06 04:31] VITALS: BP 112/61; PULSE 64; RESP 18; TEMP 36.4; O2SAT 98
[2021-07-06 07:56] VITALS: BP 103/60; PULSE 54; RESP 18; TEMP 36.4; O2SAT 98
[2021-07-06] MEDS: Diclofenac 1% Gel 100 GM TUBE TP ×2 (08:32→13:31)
[2021-07-06] MEDS: Normal Saline Flush 10 ML SYR IVP (08:34)
[2021-07-06] MEDS: Gabapentin 100 MG CAP PO ×3 (08:34→20:21)
[2021-07-06] MEDS: Atorvastatin 20 MG TAB PO (08:35)
[2021-07-06] MEDS: Metoprolol CR 50 MG TABCR PO (08:35)
[2021-07-06] MEDS: Nicotine 14 MG/24 HR PATCH TD (08:35)
[2021-07-06] MEDS: Lisinopril 5 MG TAB PO (08:35)
[2021-07-06] MEDS: Thiamine 100 MG TAB PO (08:35)
--- NOTE | 2021-07-06 11:59 | W.PM.PROGNOT ---
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 Was standing/transferring with assist of 2, but PT today noted worsening Pusher syndrome precludes safe transfer. Plan STEDY lift for all transfers as of today. Has sameera lift at home that caregiver uses Turn/reposition to avoid skin breakdown. 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 Urology placed suprapubic catheter today. No pain. (3) Palliative care patient: Status: Acute Assessment and plan: Pt is a DNR/DNI (4) Hemiplegia affecting left dominant side: Status: Acute Assessment and plan: See above (5) Essential hypertension: Assessment and plan: Cont metoprolol and lisinopril. Monitor. (6) Alcohol abuse: Assessment and plan: Cont thiamine (7) Discharge planning issues: Status: Acute Assessment and plan: His caregiver is actually not willing to have patient return home under his care at this time d/t no payer source in place. He was accepted at a facility but then that facility had a positive Covid patient and cannot take him at this time. A referral is still pending at another facility. discussed with Dr Kumar (8) Tobacco use: Assessment and plan: Cont nicoderm patch Subjective Subjective Patient reports: no new complaints, tolerating liquids well, tolerating a regular diet and afebrile; denies shortness of breath Interval history since last seen: sitting up in the chair. Exam Const General: cooperative, no acute distress, frail appearing and ill appearing chronically Nutritional Appearance: average body habitus Orientation: alert, oriented to person and oriented to place [facility] Head: normocephalic and atraumatic Ears: hearing grossly normal bilaterally Mouth: lip abnormal and tongue abnormal Teeth and gingiva: poor dentition Eyes General: appearance normal, both eyes and all related structures Sclera: sclerae normal Neck Neck: full ROM and no JVD Resp Effort & Inspection: normal respiratory effort and able to speak in complete sentences Auscultation: clear to auscultation bilaterally and diminished lung sounds Cardio Rate: regular rate Rhythm: regular rhythm Heart Sounds: S1 normal, S2 normal and murmur GI Palpation: soft and nontender Auscultation: normal bowel sounds Skin General skin exam: no rashes or lesions noted Neuro General: patient oriented x3 and moves all extremities Cranial Nerves: facial strength normal Speech: abnormal speech slurred (mild) Gait: other Motor: strength 5/5 throughout (Able to extend both hips and lift legs off bed. ) and other (Proximal LLE 2/5. Left 2nd and 3rd digits in fixed extension. ) Extrem General: no pedal edema and no calf tenderness Psych Appearance: disheveled Speech and Movement: slurred speech (not from alcohol but from lip and tongue abnormality) Mood: congruent mood Attitude: guarded Objective Last Vital Signs Temp 36.4 C L 07/06/21 07:56 Pulse 54 L 07/06/21 07:56 Resp 18 07/06/21 07:56 BP 103/60 07/06/21 07:56 Pulse Ox 98 07/06/21 07:56
[2021-07-06 16:20] VITALS: BP 123/65; PULSE 58; RESP 16; TEMP 37.1; O2SAT 98
[2021-07-06 23:20] VITALS: BP 108/60; PULSE 56; RESP 18; TEMP 36.7; O2SAT 97
[2021-07-07 07:35] VITALS: BP 134/74; PULSE 57; RESP 17; TEMP 35.7; O2SAT 96
[2021-07-07] MEDS: Diclofenac 1% Gel 100 GM TUBE TP ×2 (07:51→13:23)
[2021-07-07] MEDS: Nicotine 14 MG/24 HR PATCH TD (07:51)
[2021-07-07] MEDS: Gabapentin 100 MG CAP PO ×3 (07:52→19:35)
[2021-07-07] MEDS: Acetaminophen 325 MG TAB PO (07:52)
[2021-07-07] MEDS: Atorvastatin 20 MG TAB PO (07:52)
[2021-07-07] MEDS: Thiamine 100 MG TAB PO (07:53)
[2021-07-07] MEDS: Metoprolol CR 50 MG TABCR PO (07:53)
[2021-07-07] MEDS: Normal Saline Flush 10 ML SYR IVP ×2 (07:54→15:26)
[2021-07-07] MEDS: Lisinopril 5 MG TAB PO (07:54)
[2021-07-07 15:31] VITALS: BP 117/78; PULSE 64; RESP 18; TEMP 36.5; O2SAT 95
--- NOTE | 2021-07-07 17:33 | CMPROGNOTE_ITS ---
- If Service Date Differs Date of service: 07/07/21 Time of Service: 17:33 Care Management Progress Note S/O: Gama was lying in bed when CM met with him. He reported that he is doing ok today. CM discussed his discharge plan, and he stated that his first choice is to return home. CM stated that since he does not have a caregiver at home, it is not a safe disposition, to which he acknowledged understanding. CM had sent referrals to all facilities that had bed availability, and has received a bed offer from the [facility]. Although this is not his first choice, he is agreeable to going to a SNF while his daughter, caregiver, and the CCC at his PCP office continue to work on getting his home ready to be eligible for the AFC program. The [facility] can accept Gama for tomorrow morning, pending medical clearance. He will likely transport via [facility] w/c van, coordinated by CM. CM will continue to follow. A: Gama is a 71 year old male admitted to [facility] on 06/29/21 with failure to thrive. P: Gama will either return home with / care vs SNF for short term rehab until caregivers are set up. He will likely be transported via [facility] w/[facility] van vs EMS. He will follow up with his PCP, Palliative care, and his discharge plan of care. CM will continue to follow.
[2021-07-08] MEDS: Acetaminophen 325 MG TAB PO (00:39)
[2021-07-08 04:04] VITALS: BP 125/75; PULSE 65; RESP 18; TEMP 36.6; O2SAT 96
[2021-07-08 07:43] VITALS: BP 110/63; PULSE 71; RESP 17; TEMP 36.3; O2SAT 95
[2021-07-08] MEDS: Nicotine 14 MG/24 HR PATCH TD (10:06)
[2021-07-08] MEDS: Thiamine 100 MG TAB PO (10:07)
[2021-07-08] MEDS: Atorvastatin 20 MG TAB PO (10:07)
[2021-07-08] MEDS: Gabapentin 100 MG CAP PO (10:07)
[2021-07-08] MEDS: Metoprolol CR 50 MG TABCR PO (10:07)
[2021-07-08] MEDS: Lisinopril 5 MG TAB PO (10:07)
[2021-07-08] MEDS: Diclofenac 1% Gel 100 GM TUBE TP (10:07)
--- NOTE | 2021-07-08 10:19 | DSE_ITS ---
Date of service: 07/08/21 Time of Service: 10:20 DS: Diagnosis Discharge Diagnosis (1) Decreased mobility: Status: Acute (2) 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: Status: Acute (3) Palliative care patient: Status: Acute (4) Hemiplegia affecting left dominant side: Status: Acute (5) Essential hypertension: (6) Alcohol abuse: (7) Tobacco use: Discharge Plan Disposition Patient Disposition: SNF (LEVEL 1) [facility] Condition: Stable Discharge Details Reason For Visit: Failure to Thrive Admit Date/Time: 07/01/21 18:14 Admit Provider: Sridhar Beasley Attending Provider: Sridhar Beasley Primary Care Provider: Sridhar Magaña Hospital Course Hospital Course: This is a 71 year old with history of left hemiparesis from an old stroke, who lives home and dependant on a caregiver. Unfortunately d/t janelle driver was unable to make it to his residence to care for him. Authorities notified and wellness check did verify that he was unable to independently care for himself so he was transported to the ED for evaluation and discharge planning. He was medically cleared in the ED and admitted to hospitalist services. He has a chronic indwelling barbour catheter and noted that his meatus was eroded. Dr Griffin consult was placed and patient consented to suprapubic catheter placement which he underwent on July 04, 2021. No postoperative complications, originally with some minimal hematuria which has resolved. He is eating and drinking. He was working with physical therapy but remaining too deconditioned to bear his own weight at this time so has been downgraded to using a lift for transfers. Case management has been following and he is to be discharged to the [facility] for further rehabilitation prior to returning home. He will be transported by EMS as he requires a lift for transfers. discharge discussed with Dr Kumar Home Meds and New Rx's Prescriptions: Continued thiamine HCl (vitamin B1) 100 mg tablet 100 mg PO DAILY 0RF diclofenac sodium 1 % gel 2 g topical TID 0RF Rx Instructions: apply to single elbow, wrist or hand; for hand includes palm/fingers/back of hand gabapentin 100 mg capsule 100 mg PO TID 0RF Rx Instructions: two caps AM, one cap AFTERNOON, two caps PM clopidogrel [Plavix] 75 mg tablet 75 mg PO DAILY 0RF atorvastatin 20 mg tablet 20 mg PO DAILY 0RF Label Comments: TAKE ONE TABLET BY MOUTH ONE TIME DAILY metoprolol succinate 50 mg tablet extended release 24 hr 100 mg PO DAILY 0RF Label Comments: TAKE TWO TABLETS BY MOUTH DAILY lisinopril 5 mg tablet 5 mg PO DAILY AM 0RF Label Comments: TAKE ONE TABLET BY MOUTH ONE TIME DAILY Discharge Instructions Instructions: How to Care for Your Suprapubic Catheter (DC) Additional Instructions: dry dressing to suprapubic site - change daily and prn Stand Alone Forms: Nursing Discharge Form Referrals: Fab Griffin MD [ [facility] STAFF PHYSICIAN] - 08/15/21 8:30 am (If you have a reclining wheelchair please bring it to your appointment. Thank you ) Activity:: Activity as Tolerated Equipment/Supplies:: No Equipment Needed Diet:: As Tolerated Discharge Orders Discharge Orders: Discharge Order (Routine); Ordered 07/08/21 Ordered By: Cathryn Alvarez DS: Summary Time Spent with Patient providing and/or coordinating discharge services: Greater than 30 minutes Status at Discharge Functional status at discharge: wheelchair bound Overall status at discharge: patient is not back to baseline Mental Status: mental status grossly normal Speech and Movement: slurred speech (not from alcohol but from lip and tongue abnormality) Mood: congruent mood Affect: normal affect Exam Const General: cooperative, no acute distress, frail appearing and ill appearing chronically Nutritional Appearance: average body habitus Orientation: alert, oriented to person and oriented to place [facility] Head: normocephalic and atraumatic Ears: hearing grossly normal bilaterally Teeth and gingiva: poor dentition Eyes General: appearance normal, both eyes and all related structures Sclera: sclerae normal Neck Neck: full ROM Resp Effort & Inspection: normal respiratory effort and able to speak in complete sentences Auscultation: clear to auscultation bilaterally and diminished lung sounds Cardio Rate: regular rate Rhythm: regular rhythm Heart Sounds: S1 normal, S2 normal and murmur GI Palpation: soft and nontender Auscultation: normal bowel sounds Skin General skin exam: no rashes or lesions noted Neuro General: patient oriented x3 and moves all extremities Cranial Nerves: facial strength normal Speech: abnormal speech slurred (mild) Gait: other Motor: strength 5/5 throughout (Able to extend both hips and lift legs off bed. ) and other (Proximal LLE 2/5. Left 2nd and 3rd digits in fixed extension. ) Extrem General: no pedal edema and no calf tenderness Psych Mental Status: mental status grossly normal Speech and Movement: slurred speech (not from alcohol but from lip and tongue abnormality) Mood: congruent mood Affect: normal affect Attitude: guarded DS: Data Vitals/I&O Vitals and I&O: Vital Signs Temperature 36.3 C L 07/08/21 07:43 Temperature Source Tympanic 07/08/21 07:43 Pulse 71 07/08/21 07:43 Pulse Rhythm Regular 07/08/21 02:24 Respiratory Rate 17 07/08/21 07:43 Respiratory Effort Non-Labored 07/08/21 02:24 Respiratory Depth Normal 07/08/21 02:24 Respiratory Pattern Normal 07/08/21 02:24 Blood Pressure 110/63 07/08/21 07:43 Blood Pressure Position Supine 06/28/21 23:15 Pulse Oximetry 95 07/08/21 07:43 Oxygen Delivery Method Room Air 07/08/21 07:43 Oxygen Flow Rate 0 07/08/21 07:43 Pain Level 0 07/08/21 07:43 Comment 07/08/21 07:43 Intake & Output 07/07/21 07/07/21 07/08/21 11:59 23:59 11:59 Intake Total 620 / 870 250 / 870 Output Total 450 / 800 350 / 800 900 / 900 Balance 170 / 70 -100 / 70 -900 / -900 Intake: IV Oral 610 / 850 240 / 850 Output: Urine 450 / 800 350 / 800 900 / 900 Other: Urine Color Yellow Yellow Straw Urine Appearance Clear Clear Clear Comment dressing changed. Stool Size Moderate Large Stool Characteristics Soft Brown Brown Data Completed and Pending Labs on day of discharge: Labs from last 24 hours 07/08/21 09:15 COVID-19 Source Pending SARS-CoV-2 (PCR) Pending [facility] All Active Problems (Updated 07/03/21 @ 10:22 by Sridhar Beasley MD) Decreased mobility (Acute) 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 (Acute) Palliative care patient (Acute) Discharge planning issues (Acute) Encounter for medical assessment (Acute) DNI (do not intubate) (Acute) DNR (do not resuscitate) (Acute) Bedbound (Acute) CVA (cerebral vascular accident) (Chronic) Hemiplegia affecting left dominant side (Acute) Medical History Alcohol abuse Chronic viral hepatitis C Difficulty in walking Essential hypertension Full incontinence of feces Hemiparesis Hx of TIA (transient ischemic attack) and stroke MRSA (methicillin resistant Staphylococcus aureus) Other abnormalities of gait and mobility Other chronic pain Pain in right hip Tinea unguium Tobacco use Unspecified osteoarthritis, unspecified site Unspecified urinary incontinence Very low level of personal hygiene Surgical History History of hip surgery Hx of cataract surgery Social History Smoking/Tobacco Use Status: Current every day Smoking risk assessment performed?: Yes Alcohol Intake: current Drug use: Occasionally Substance use type: does not use Do you feel safe at home: Yes Additional Social history: pt wants to be at home
[2021-07-08 13:13] LABS: COVID-19 PCR Negative (Negative)
[2021-07-08 14:07] LABS: Source Nasal/Nares
--- NOTE | 2021-07-08 16:37 | PDOC.CMDIS ---
- If Service Date Differs Date of service: 07/08/21 Time of Service: 16:37 LACE Index Scoring Tool - Questions: Length of Stay (in days): 7 - 13 Acuity (Admit via E.D.?): Yes Comorbidities: Cerebrovascular Disease E.D. Visits: 1 - Answers: Total Score: 10 Risk of Readmission: High Risk Care Management Discharge Reason for Hospitalization: Failure to thrive. Discharge Plan: Gama transferred to the [facility] today for short term rehab. His team in the community continue to work on preparing his home to become an [facility] home. He was transported via EMS, coordinated by CM. He will follow up with his PCP and discharge plan of care. Patient/Family Education Needs: Review discharge instructions and limitations, discussion of self care needs including ask me three. Services Needed at Discharge: Intermediate Facility ([facility]), Transportation (EMS, [facility])
--- NOTE | 2021-07-08 18:00 | PT.INDS ---
Date of service: 07/08/21 Time of Service: 18:00 PT Notes Visit Reasons: Failure to Thrive Physical Therapy Inpatient Discharge Summary Date: 07/08/2021 Dates of Service: 06/30/2021 through 07/03/2021 This is a clinical summary of care provided for the duration of dates listed above. No charge was made in the completion of this documentation. Precautions: Fall. Standard. Activity as tolerated. Patient Profile/Admitting Diagnosis: Gama is a 71-year-old male with past medical history significant for CVA resulting in left-sided hemiplegia who presented to the ED on 06/29/2021 due to a welfare check done for him requested by his daughter as patient had a gas leak at home and his carbon monoxide alarm went of; patient also complains of pain in the left hip for quite a while.? Patient is diagnosed with failure to thrive at home, EtOH abuse, and essential hypertension.? Referral for PT was made in order to assess mobility level to facilitate safe discharge planning. PMHX: All Active Problems? Encounter for medical assessment (Acute) DNI (do not intubate) (Acute) DNR (do not resuscitate) (Acute) Bedbound (Acute) CVA (cerebral vascular accident) (Chronic) Hemiplegia affecting left dominant side (Acute) Medical History? Alcohol abuse Chronic viral hepatitis C Difficulty in walking Essential hypertension Full incontinence of feces Hemiparesis Hx of TIA (transient ischemic attack) and stroke MRSA (methicillin resistant Staphylococcus aureus) Other abnormalities of gait and mobility Other chronic pain Pain in right hip Tinea unguium Tobacco use Unspecified osteoarthritis, unspecified site Unspecified urinary incontinence Very low level of personal hygiene Surgical History? History of hip surgery Hx of cataract surgery Social History/Home Situation: Patient states that he has a roommate at home who lives with him and provides assistance with all transfer task performance using the mechanical lift.? This room mate helps out with all other activities of daily living as requested by him. Equipment Owned/DME: Hospital bed, front wheeled walker, single-point cane, mechanical lift Subjective: NT. See most recent CLINICAL RESEARCH PHYSICIAN notes. Objective: General Observation: NT. See most recent CLINICAL RESEARCH PHYSICIAN notes. Mental Status: NT. See most recent CLINICAL RESEARCH PHYSICIAN notes. Pain: NT. See most recent CLINICAL RESEARCH PHYSICIAN notes. ROM: Right Upper Extremity: ? Shoulder Flexion WFL. Shoulder abduction WFL. Elbow flexion WFL. Wrist flexion WFL. Functional opening and closing of hand WFL. Left Upper Extremity:? Shoulder Flexion allows only up to about 100 degrees. Shoulder abduction allows only up to about 80 degrees. Elbow flexion WFL. Wrist flexion WFL. Functional opening and closing of hand WFL. Right Lower Extremity: Hip flexion WFL. Hip abduction WFL. Knee flexion WFL. Ankle dorsiflexion WFL. Ankle plantarflexion WFL. Left Lower Extremity: Hip flexion unable to bend at the hip beyond 90 while seated at edge of bed and on the chair. Hip abduction WFL. Knee flexion 40 degrees to 90 degrees.? Knee extensors -40 degrees. Ankle dorsiflexion 10 degrees. Ankle plantarflexion WFL. Strength: Right Upper Extremity: Shoulder flexors 4/5. Shoulder abductors 4/5. Elbow flexors 4/5. Elbow extensors 4/5. Brain Picker strong. Left Upper Extremity: Shoulder flexors 3-/5. Shoulder abductors 3-/5. Elbow flexors 4-/5. Elbow extensors 4-/5. Brain Picker weak but functional Right Lower Extremity: Hip flexors 4-/5. Hip abductors 4/5. Knee flexors 4/5. Knee extensors 4-/5. Ankle dorsiflexors 3/5. Ankle plantarflexors 3/5. Left Lower Extremity: Hip flexors 3-/5. Hip abductors 4-/5. Knee flexors 3-/5. Knee extensors 3-/5. Ankle dorsiflexors 3-/5. Ankle plantarflexors 4-/5. Bed Mobility/Transfers: Rolling minimal assist Supine to sit minimal assist Sit to stand with maximal assist of 2 with maximal verbal cueing for hand placement Stand to sit with maximal assist of 2 with maximal verbal cueing for hand placement Bed to reclining chair maximal assist of 2 with maximal verbal cueing for safety Reclining chair to bed maximal assist of 2 with maximal verbal cueing for safety Gait: Unable Balance: Static Sitting: Fair Dynamic Sitting: Fair Static Standing: Unable Dynamic Standing: Unable Assessment: Attempts at progressing mobility not so successful due to increasing pusher syndrome, impaired safety awareness, and inability to follow safety strategy. Downgraded to mechanical lift to reduce fall risk. Gama demonstrates increased instability and incoordination with mobility task performance requiring the assistance of 2 people for transfers and short distance ambulation to reduce fall risk.? 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 BUE/LE with Patient presents with clinical signs and symptoms consistent with current/admitting diagnoses that have resulted to mobility limitations, gait instability, generalized weakness, and overall ADL decline as demonstrated by the following impairment level findings: 1.? Decreased strength to B UE/LE with left UEsLE more affected major muscle groups 2.? Impaired sitting/standing balance 3.? Impaired activity tolerance 4.? Limitation of joint range of motion in left UEs and LE joints due to left-sided hemiplegia 5.? Impaired coordination 6.? Pusher syndrome Impairments are contributing to the following functional limitations: 1.? Decline in bed mobility skills 2.? Decline in transfer skills 3.? Difficulty with ambulation without assistive device and physical assistance 4.? Increased completion time for mobility ADL performance 5.? Increased risk for falls 6.? Difficulty with managing steps alone safely Goals: Goals X1 week 1. Supine-Sit independent NOT MET 2. Sit-Supine independent NOT MET 3. Sit-Stand minimal assist NOT MET 4. Stand-Sit contact-guard assist with FWW NOT MET 5. Bed-Chair minimal assist with FWW NOT MET 6. Chair-Bed minimal assist with FWW NOT MET 7.? Minimal assist gait on level surface with use of FWW for at least 30 feet without report of pain nor dyspnea NOT MET 8. Good static and dynamic standing balance/tolerance NOT MET DISCHARGE RECOMMENDATIONS: [] ? Home with no services [] [] ? Home with services [specify] [] ? Home with outpatient PT [] [X] ? SNF for continued rehabilitation.? Patient will benefit from [facility] facility placement for continued skilled physical therapy services in order to progress mobility level, strength, and balance in preparation for a safe discharge to home. [] ? [facility] [] [] ? SNF versus LTC based on ability to participate and progress [] TREATMENT CODE/TIME: TN Thank you for the opportunity to participate in the care of this patient. Becca Albrecht PT, DPT, CLT [facility] [place], [place]
--- NOTE | 2021-11-26 13:23 | PGE_ITS ---
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 Was standing/transferring with assist of 2, but PT today noted worsening Pusher syndrome precludes safe transfer. Plan STEDY lift for all transfers as of tod ay. Has sameera lift at home that caregiver uses Turn/reposition to avoid skin breakdown. 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 Urology placed suprapubic catheter today. No pain. (3) Palliative care patient: Status: Acute Assessment and plan: Pt is a DNR/DNI (4) Hemiplegia affecting left dominant side: Assessment and plan: See above (5) Essential hypertension: Assessment and plan: Cont metoprolol and lisinopril. Monitor. (6) Alcohol abuse: Assessment and plan: Cont thiamine (7) Tobacco use: Assessment and plan: Cont nicoderm patch (8) Discharge planning issues: Status: Acute Assessment and plan: His caregiver is actually not willing to have patient return home under his care at this time d/t no payer source in place. He was accepted at a facility but then that facility had a positive Covid patient and cannot take him at this time. A referral is still pending at another facility. discussed with Dr Kumar Subjective Subjective Patient reports: no new complaints and afebrile; denies shortness of breath Exam Const General: cooperative, no acute distress, frail appearing and ill appearing chronically Nutritional Appearance: average body habitus Orientation: alert, oriented to person and oriented to place [facility] Head: normocephalic and atraumatic Ears: hearing grossly normal bilaterally Mouth: lip abnormal and tongue abnormal Teeth and gingiva: poor dentition Eyes General: appearance normal, both eyes and all related structures Sclera: sclerae normal Neck Neck: full ROM and no JVD Resp Effort & Inspection: normal respiratory effort and able to speak in complete sentences Auscultation: clear to auscultation bilaterally and diminished lung sounds Cardio Rate: regular rate Rhythm: regular rhythm Heart Sounds: S1 normal, S2 normal and murmur GI Palpation: soft and nontender Auscultation: normal bowel sounds Skin General skin exam: no rashes or lesions noted Neuro General: patient oriented x3 and moves all extremities Cranial Nerves: facial strength normal Speech: abnormal speech slurred (mild) Gait: other Motor: strength 5/5 throughout (Able to extend both hips and lift legs off bed. ) and other (Proximal LLE 2/5. Left 2nd and 3rd digits in fixed extension. ) Extrem General: no pedal edema and no calf tenderness Psych Appearance: disheveled Speech and Movement: slurred speech (not from alcohol but from lip and tongue abnormality) Mood: congruent mood Attitude: guarded Objective Last Vital Signs Temp 36.3 C L 07/08/21 07:43 Pulse 71 07/08/21 07:43 Resp 17 07/08/21 07:43 BP 110/63 07/08/21 07:43 Pulse Ox 95 07/08/21 07:43
== END 2021-07-08 11:41 | disposition skilled nursing facility (03) | DRG 982 ==
LOC: ER 06-29 11:28 → MS 06-29 12:00
PROVIDERS: Nurse Practitioner Acute Care; Student in an Organized Health Care Education/Training Program; Urology; Admitting Provider Family Medicine; Emergency Provider Student in an Organized Health Care Education/Training Program; PCP Family Medicine; Visit Provider Family Medicine
PROC: 0T1 Urinary System, Bypass (ICD-10-PCS; CPT 51102; principal; 2021-07-04 07:30)
DX: S37.39XA Other injury of urethra, initial encounter (principal); I69.352 Hemiplegia and hemiparesis following cerebral infarction affecting left dominant side; Z74.2 Need for assistance at home and no other household member able to render care; R26.9 Unspecified abnormalities of gait and mobility; Z66 Do not resuscitate; B18.2 Chronic viral hepatitis C; F17.210 Nicotine dependence, cigarettes, uncomplicated; I10 Essential (primary) hypertension; Z74.01 Bed confinement status; F10.11 Alcohol abuse, in remission; G89.29 Other chronic pain; R32 Unspecified urinary incontinence; Z79.01 Long term (current) use of anticoagulants; R15.9 Full incontinence of feces; T83.091A Other mechanical complication of indwelling urethral catheter, initial encounter
CPT/HCPCS: 51102; 36415; 80053; 87081; 87635; 97110; 97162; 97166; 97530; 97535; 99222; 99285; U0005; 73502; 85025; 99220; 99225; 99231; 99232; 99233; 99239; G0378; J0131; J0690

== ENCOUNTER → 2021-07-01 09:57 | Outpatient (BNVA) | payer MEDICARE, MEDICAID, SELFPAY | PROVIDERS: PCP Family Medicine; Referring Provider Family Medicine; Visit Provider Urology | DX: R69 Illness, unspecified (principal) ==

== ENCOUNTER → 2021-07-04 07:51 | Outpatient (BNVA) | payer MEDICARE, MEDICAID, SELFPAY | PROVIDERS: PCP Family Medicine; Referring Provider Family Medicine; Visit Provider Urology | DX: R69 Illness, unspecified (principal) ==

== ENCOUNTER 2021-08-12 15:11 | Emergency (ER) | payer MEDICARE, MEDICAID, SELFPAY ==
[2021-08-12 15:15] VITALS: BP 118/61; PULSE 50; RESP 16; TEMP 37; O2SAT 98
--- NOTE | 2021-08-12 15:46 | ED.GENADUL_ITS ---
Discharge Plan Disposition Patient Disposition: SNF (LEVEL 1) [facility] Condition: Improving Discharge Details Clinical Impression: Suprapubic catheter dysfunction Primary Care Provider: Sridhar Magaña ED Provider: Sridhar Jolly Home Meds and New Rx's Prescriptions: Continued morphine 15 mg tablet extended release 15 mg PO Q8H MDD 3 Qty: 30 0RF acetaminophen 500 mg capsule 500 mg PO TID Qty: 90 4RF thiamine HCl (vitamin B1) 100 mg tablet 100 mg PO DAILY 0RF diclofenac sodium 1 % gel 2 g topical TID 0RF Rx Instructions: apply to single elbow, wrist or hand; for hand includes palm/fingers/back of hand gabapentin 100 mg capsule 100 mg PO TID 0RF Rx Instructions: two caps AM, one cap AFTERNOON, two caps PM clopidogrel [Plavix] 75 mg tablet 75 mg PO DAILY 0RF atorvastatin 20 mg tablet 20 mg PO DAILY 0RF Label Comments: TAKE ONE TABLET BY MOUTH ONE TIME DAILY metoprolol succinate 50 mg tablet extended release 24 hr 100 mg PO DAILY 0RF Label Comments: TAKE TWO TABLETS BY MOUTH DAILY lisinopril 5 mg tablet 5 mg PO DAILY AM 0RF Label Comments: TAKE ONE TABLET BY MOUTH ONE TIME DAILY nicotine 21 mg/24 hr Patch 24 Hour 21 mg transdermal Q24H 0RF epinephrine 0.3 mg/0.3 mL Auto-Injector 0.3 mg subcut PRN PRN0RF fentanyl 25 mcg/hr Patch 72 Hour 25 mcg transdermal Q72H 0RF albuterol sulfate 90 mcg/actuation Hfa Aerosol Inhaler 90 mcg INHALATION TID 0RF vitamin B complex Capsule 1 cap PO DAILY 0RF budesonide-formoterol [Symbicort] 160-4.5 mcg/actuation Hfa Aerosol Inhaler 2 puff INHALATION DAILY 0RF Discharge Instructions Instructions: Turner Catheter Placement and Care (ED) Additional Instructions: Please follow-up with urology as needed. Continue with suprapubic catheter care per protocol Medical Decision Making 71-year-old male recent suprapubic catheter placement presents referred from the [facility] for evaluation of leaking of urine out of the urethra and set up a leg bag, initial EMS call was for pain, patient denies pain at this time, patient has a normal-appearing suprapubic catheter well granulated with small amount of mucoid material at stoma, no bleeding no extravasation of urine, patient has clear yellow urine in leg bag, bedside ultrasound showing suprapubic catheter in bladder, bilateral kidneys normal without hydronephrosis. Patient is afebrile nontoxic. Spoke with Dr. Griffin of urology who was awaiting patient in specialty clinic today however patient was transported to the emergency department. Dr. Griffin is okay with patient following up as scheduled as an outpatient given normal examination here in the emergency department. HPI General Date/Time Provider Initiated Documentation: 08/12/21 15:39 . HPI Narrative: 71-year-old male history of suprapubic catheter placement, referred in from the [facility] for pain and evaluation of urine leaking from urethra. Patient denies any pain denies any leakage. Endorses that his leg bag is filling up appropriately. No back pain fevers chills nausea or vomiting. Related Data Home Medications Medication Instructions Recorded Confirmed clopidogrel 75 mg tablet (Plavix) 75 mg PO DAILY 06/05/20 08/12/21 diclofenac sodium 1 % topical gel 2 g TOPICAL TID g 06/05/20 07/08/21 gabapentin 100 mg capsule 100 mg PO TID 06/05/20 08/12/21 thiamine HCl (vitamin B1) 100 mg 100 mg PO DAILY 06/05/20 08/12/21 tablet atorvastatin 20 mg tablet 20 mg PO DAILY 06/28/21 08/12/21 lisinopril 5 mg tablet 5 mg PO DAILY AM 06/28/21 08/12/21 metoprolol succinate 50 mg 100 mg PO DAILY 06/28/21 08/12/21 tablet,extended release 24 hr acetaminophen 500 mg capsule 500 mg PO TID #90 cap 07/08/21 08/12/21 morphine 15 mg tablet,extended 15 mg PO Q8H #30 tab MDD 3 07/08/21 08/12/21 release albuterol sulfate 90 mcg/actuation 90 mcg INHALATION TID 08/12/21 08/12/21 aerosol inhaler budesonide-formoterol HFA 160 2 puff INHALATION DAILY 08/12/21 08/12/21 mcg-4.5 mcg/actuation aerosol inhaler (Symbicort) epinephrine 0.3 mg/0.3 mL 0.3 mg SUBCUT PRN PRN 08/12/21 08/12/21 injection, auto-injector fentanyl 25 mcg/hr transdermal 25 mcg TRANSDERMAL Q72H 08/12/21 08/12/21 patch nicotine 21 mg/24 hr daily 21 mg TRANSDERMAL Q24H 08/12/21 08/12/21 transdermal patch vitamin B complex 1 cap PO DAILY 08/12/21 08/12/21 Previous Rx's Medication Instructions Recorded acetaminophen 500 mg capsule 500 mg PO TID #90 cap 07/08/21 morphine 15 mg tablet,extended 15 mg PO Q8H #30 tab MDD 3 07/08/21 release Allergies Allergy/AdvReac Type Severity Reaction Status Date / Time egg Allergy Severe Anaphylaxis Unverified 08/12/21 15:22 varenicline [From Chantix] Allergy liver Unverified 08/12/21 15:22 failure General Stated Complaint: Urinary NAS: 4 Review of Systems Narrative: Review of Systems Constitutional: negative Eyes: negative ENT: negative Cardiovascular: negative Respiratory: negative Gastrointestinal: negative : negative Musculoskeletal: negative Skin: negative Neurologic: negative Psych: negative PFSH All Active Problems (Updated 08/12/21 @ 15:56 by Sridhar Jolly MD) Suprapubic catheter dysfunction (Acute) Decreased mobility (Acute) DNI (do not intubate) (Acute) DNR (do not resuscitate) (Acute) Medical History Alcohol abuse Chronic viral hepatitis C Difficulty in walking Essential hypertension Full incontinence of feces Hemiparesis Hx of TIA (transient ischemic attack) and stroke MRSA (methicillin resistant Staphylococcus aureus) Other abnormalities of gait and mobility Other chronic pain Pain in right hip Tinea unguium Tobacco use Unspecified osteoarthritis, unspecified site Unspecified urinary incontinence Very low level of personal hygiene Surgical History History of hip surgery Hx of cataract surgery Social History Smoking/Tobacco Use Status: Former Tobacco Use Smoking risk assessment performed?: Yes Alcohol Intake: former Drug use: Never Substance use type: does not use Do you feel safe at home: Yes Additional Social history: pt wants to be at home Exam Narrative Exam Narrative: Physical Examination General: alert, awake, cooperative, resting comfortably, no acute distress HEENT: normocephalic, atraumatic; PERRL, EOM intact, conjunctiva normal; no nasa l discharge; moist mucous membranes, oral and pharyngeal mucosa normal, tolerating secretions Neck: supple, trachea midline; full ROM Chest: normal to inspection Respiratory: normal respiratory effort, speaking in full sentences, clear to auscultation, no wheezing, rales or rhonchi Cardiac: regular rate, regular rhythm, S1S2 intact, no murmurs rubs or gallops GI: abdomen soft, non-tender, non-distended; no palpable mass or hepatosplenomegaly : Normal external genitalia, suprapubic catheter in place, well granulated tract, no bloody discharge or urine extravasation noted, mild mucoid discharge at the stoma, bedside ultrasound showing normal kidneys bilaterally no hydronephrosis, bedside ultrasound showing balloon inflated within bladder, patient has clear yellow urine in leg bag Skin: no lesions, rashes or trauma appreciated Neuro: AAOx3, normal speech, moving all extremities Extremities: Psych: Appropriate mood and affect Course Vital Signs Vital signs: Vital Signs Temperature 37 C 08/12/21 15:15 Pulse 50 L 08/12/21 15:15 Respiratory Rate 16 08/12/21 15:15 Blood Pressure 118/61 08/12/21 15:15 Pulse Oximetry 98 08/12/21 15:15 Temperature 37 C 08/12/21 15:15 Temperature Source Temporal Artery Scan 08/12/21 15:15 Pulse 50 L 08/12/21 15:15 Respiratory Rate 16 08/12/21 15:15 Respiratory Effort Non-Labored 08/12/21 15:19 Blood Pressure 118/61 08/12/21 15:15 Blood Pressure Position Sitting 08/12/21 15:15 Pulse Oximetry 98 08/12/21 15:15 Oxygen Delivery Method Room Air 08/12/21 15:15 Oxygen Flow Rate 0 08/12/21 15:15 Pain Level 0 08/12/21 15:41
[2021-08-12 17:04] VITALS: BP 112/62; PULSE 54; RESP 16; TEMP 36.8; O2SAT 98
== END 2021-08-12 17:03 | disposition skilled nursing facility (03) ==
LOC: ER 15:56
PROVIDERS: Emergency Provider Emergency Medicine; PCP Family Medicine
DX: T83.098A Other mechanical complication of other urinary catheter, initial encounter (principal)
CPT/HCPCS: 99283; 99282

== ENCOUNTER → 2021-08-15 08:33 | Outpatient (BNVA) | payer MEDICARE, MEDICAID, SELFPAY | PROVIDERS: PCP Family Medicine; Referring Provider Family Medicine; Visit Provider Urology | DX: N36.8 Other specified disorders of urethra (principal); Z46.6 Encounter for fitting and adjustment of urinary device; T83.89XA Other specified complication of genitourinary prosthetic devices, implants and grafts, initial encounter | CPT/HCPCS: 51705 ==

== ENCOUNTER 2021-09-09 15:48 | Outpatient (REF) | payer MEDICARE, MEDICAID, SELFPAY ==
[2021-09-09 19:33] LABS: Abs Immature Grans 0.04 10^3/uL (0.0-0.06); Absolute Basophil Count 0.04 10^3/uL (0.0-0.2); Absolute Lymphocyte Count 1.85 10^3/uL (1.2-3.4); Basophils % 0.3; Eosinophils % 2.6; HCT 31.9 % (40.0-50.0); HGB 9.8 g/dL (13.5-17.5); Immature Grans % 0.3; Lymphocytes % 15.2; MCH 29.3 pg (27.0-33.0); MCHC 30.7 % (32.0-36.0); MCV 95.5 fL (80-95); MPV 12.3 fL (8.0-11.0); Monocytes % 6.6; Platelet Count 236 10^3/uL (130-400); RBC 3.34 10^6/uL (4.36-5.78); RDW 13.9 % (11.8-14.1); RDW-SD 49.1 fL; WBC 12.14 10^3/uL (4.4-10.8)
[2021-09-09 19:36] LABS: Absolute Eosinophil Count 0.32 10^3/uL (0.0-0.7); Absolute Neutrophil Count 9.11 10^3/uL (1.2-6.7)
[2021-09-09 20:45] LABS: Hemoglobin A1C 5.9 % (<5.7); Iron 41 ug/dL (65-175)
[2021-09-09 21:15] LABS: ALT 19 U/L (16-63); AST 12 U/L (15-37); Albumin 3.4 g/dL (3.4-5.0); Alkaline Phosphatase 67 U/L (46-116); Anion Gap 8.2 mmol/L (3-11); BUN 30 mg/dL (7-18); Bilirubin, Total 0.5 mg/dL (0.2-1.0); CO2 26.8 mmol/L (21.0-32.0); Calcium 9.1 mg/dL (8.5-10.1); Chloride 107 mmol/L (98-107); Estimated GFR 32.92 (mL/min/1.73m2); Ferritin 359 ng/mL (26-388); Glucose 101 mg/dL (74-106); Magnesium 2.1 mg/dL (1.8-2.4); Potassium 5.4 mmol/L (3.5-5.1); Sodium 142 mmol/L (136-145); TSH (W/Ref FT4) 0.66 uIU/mL (0.36-3.74); Total Protein 7.1 g/dL (6.4-8.2); Vitamin B12 644 pg/mL (193-986)
[2021-09-09 21:32] LABS: Folate > 20.0 ng/mL (8.6-20.0)
[2021-09-11 05:20] LABS: Vitamin D 25 Total 17.9 ng/mL (30-100)
== END 2021-09-09 15:49 | disposition home or self-care (01) ==
LOC: LBN 15:48
PROVIDERS: PCP Family Medicine; Visit Provider Nurse Practitioner Gerontology
DX: I63.9 Cerebral infarction, unspecified (principal); N31.9 Neuromuscular dysfunction of bladder, unspecified; Z51.5 Encounter for palliative care; R62.7 Adult failure to thrive
CPT/HCPCS: 80053; 82306; 82607; 82728; 82746; 83036; 83540; 83735; 84443; 85025

== ENCOUNTER 2021-09-11 15:24 | Outpatient (REF) | payer MEDICARE, MEDICAID, SELFPAY ==
[2021-09-11 17:23] LABS: MCH 29.5 pg (27.0-33.0); MCHC 31.3 % (32.0-36.0); MCV 94.4 fL (80-95); MPV 12.6 fL (8.0-11.0); Platelet Count 235 10^3/uL (130-400); RBC 3.39 10^6/uL (4.36-5.78); RDW 13.8 % (11.8-14.1); WBC 9.28 10^3/uL (4.4-10.8)
[2021-09-11 17:33] LABS: Anion Gap 5.8 mmol/L (3-11); BUN 33 mg/dL (7-18); CO2 28.2 mmol/L (21.0-32.0); CREATININE 2.1 mg/dL (0.70-1.30); Calcium 8.9 mg/dL (8.5-10.1); Chloride 104 mmol/L (98-107); Estimated GFR 31.11 (mL/min/1.73m2); Glucose 88 mg/dL (74-106); Potassium 5.4 mmol/L (3.5-5.1); Sodium 138 mmol/L (136-145)
== END 2021-09-11 15:25 | disposition home or self-care (01) ==
LOC: LBN 15:24
PROVIDERS: PCP Family Medicine; Visit Provider Nurse Practitioner Gerontology
DX: F10.10 Alcohol abuse, uncomplicated (principal); D64.9 Anemia, unspecified; R62.7 Adult failure to thrive; M62.81 Muscle weakness (generalized)
CPT/HCPCS: 80048; 85027

== ENCOUNTER 2021-09-16 18:10 | Outpatient (REF) | payer MEDICARE, MEDICAID, SELFPAY ==
[2021-09-16 18:21] LABS: Abs Immature Grans 0.03 10^3/uL (0.0-0.06); Absolute Basophil Count 0.03 10^3/uL (0.0-0.2); Absolute Eosinophil Count 0.28 10^3/uL (0.0-0.7); Absolute Lymphocyte Count 1.93 10^3/uL (1.2-3.4); Absolute Monocyte Count 0.64 10^3/uL (0.1-0.8); Absolute Neutrophil Count 5.13 10^3/uL (1.2-6.7); Basophils % 0.4; Eosinophils % 3.5; HCT 30.5 % (40.0-50.0); HGB 9.6 g/dL (13.5-17.5); Immature Grans % 0.4; MCH 29.5 pg (27.0-33.0); MCHC 31.5 % (32.0-36.0); MCV 93.8 fL (80-95); MPV 12.7 fL (8.0-11.0); Neutrophils % 63.7; Platelet Count 223 10^3/uL (130-400); RBC 3.25 10^6/uL (4.36-5.78); RDW 13.8 % (11.8-14.1); RDW-SD 47.3 fL; WBC 8.04 10^3/uL (4.4-10.8)
[2021-09-16 18:46] LABS: Anion Gap 5.4 mmol/L (3-11); BUN 36 mg/dL (7-18); CO2 27.6 mmol/L (21.0-32.0); CREATININE 1.9 mg/dL (0.70-1.30); Calcium 8.9 mg/dL (8.5-10.1); Chloride 106 mmol/L (98-107); Estimated GFR 34.92 (mL/min/1.73m2); Glucose 94 mg/dL (74-106); Potassium 5.4 mmol/L (3.5-5.1); Sodium 139 mmol/L (136-145)
== END 2021-09-16 18:11 | disposition home or self-care (01) ==
LOC: LBN 18:10
PROVIDERS: PCP Family Medicine; Visit Provider Nurse Practitioner Gerontology
DX: F10.10 Alcohol abuse, uncomplicated (principal); R62.7 Adult failure to thrive; M62.81 Muscle weakness (generalized); D64.9 Anemia, unspecified; R05.9 Cough, unspecified
CPT/HCPCS: 80048; 85025

== ENCOUNTER 2021-11-11 15:42 | Outpatient (REF) | payer MEDICARE, MEDICAID, SELFPAY ==
[2021-11-11 16:40] LABS: Abs Immature Grans 0.03 10^3/uL (0.0-0.06); Absolute Basophil Count 0.02 10^3/uL (0.0-0.2); Absolute Eosinophil Count 0.09 10^3/uL (0.0-0.7); Absolute Lymphocyte Count 1.63 10^3/uL (1.2-3.4); Absolute Monocyte Count 0.45 10^3/uL (0.1-0.8); Basophils % 0.2; Eosinophils % 0.8; HCT 32.7 % (40.0-50.0); HGB 10.2 g/dL (13.5-17.5); Immature Grans % 0.3; Lymphocytes % 15.3; MCH 29.3 pg (27.0-33.0); MCHC 31.2 % (32.0-36.0); MCV 94 fL (80-95); MPV 12.7 fL (8.0-11.0); Monocytes % 4.2; Neutrophils % 79.2; Platelet Count 218 10^3/uL (130-400); RBC 3.48 10^6/uL (4.36-5.78); RDW 13.7 % (11.8-14.1); RDW-SD 46.8 fL; WBC 10.62 10^3/uL (4.4-10.8)
[2021-11-13 05:03] LABS: Vitamin D 25 Total 41.4 ng/mL (30-100)
== END 2021-11-11 15:43 | disposition home or self-care (01) ==
LOC: LBN 15:42
PROVIDERS: PCP Family Medicine; Visit Provider Nurse Practitioner Gerontology
DX: R53.83 Other fatigue (principal); R62.7 Adult failure to thrive; F10.10 Alcohol abuse, uncomplicated; I63.89 Other cerebral infarction; R68.89 Other general symptoms and signs; Z79.899 Other long term (current) drug therapy
CPT/HCPCS: 82306; 85025

== ENCOUNTER 2021-12-26 16:55 | Outpatient (REF) | payer MEDICARE, MEDICAID, SELFPAY ==
[2021-12-26 18:12] LABS: Bilirubin Negative (Negative); Blood Small (Negative); Clarity Cloudy (Clear); Glucose Negative (Negative); Ketones Trace mg/dL (Negative); Leukocyte Esterase Moderate (Negative); Nitrite Negative (Negative); Specific Gravity 1.025 (1.005-1.025); pH 5.5 (5-8)
[2021-12-26 18:32] LABS: Bacteria Packed HPF (Negative); C & S Indicated? C&S Done As Ordered; WBC >50 HPF (0-5)
== END 2021-12-26 16:56 | disposition home or self-care (01) ==
LOC: LBN 16:55
PROVIDERS: PCP Family Medicine; Visit Provider Nurse Practitioner Gerontology
DX: N31.9 Neuromuscular dysfunction of bladder, unspecified (principal); R82.998 Other abnormal findings in urine
CPT/HCPCS: 87077; 87186; 81003; 81015; 87086

== ENCOUNTER 2022-01-17 07:22 | Emergency (ER) | payer MEDICARE, MEDICAID, SELFPAY ==
[2022-01-17] VITALS (32 sets, daily range): BP systolic 101–132; BP diastolic 56–84; PULSE 76–106; RESP 13–20; TEMP 36.8; O2SAT 92–97
--- NOTE | 2022-01-17 07:26 | DI.CT_ITS ---
Exam(s) CT ABDOMEN PELVIS WO EXAM: CT ABDOMEN PELVIS WO CLINICAL HISTORY: n/v abdominal pain. TECHNIQUE: Imaging Protocol: Axial computed tomography images with coronal and sagittal reformatted images were created and reviewed CONTRAST MATERIAL: Intravenous: none Oral: None COMPARISON: CR,XR XR HIP LT COMPLETE AP PELVIS from 06/29/2021 FINDINGS: VISUALIZED LUNG BASES: There infiltrates in both lung bases; probably an element of chronicity but al so probably superimposed acute infiltrates. There are no pleural effusions.. ABDOMEN: There is no ascites. LIVER: There are no obvious focal hepatic lesions evident of this noninfused study. GALLBLADDER/BILIARY: Cholelithiasis. There are multiple gallstones of varying size layered throughou t the gallbladder lumen ranging from miniscule up to size of 1.5 x 1.0 cm. The gallbladder, however, is not distended and there is no pericholecystic fluid. CBD is not dilated. There are no calculi s een in the CBD. PANCREAS: No evidence of pancreatic mass nor dilatation of the pancreatic duct. SPLEEN: Spleen is not enlarged. No obvious intrasplenic lesions. ADRENALS: There are no significant adrenal masses. KIDNEYS:Multiple small cysts in left kidney. No solid mass evident in either kidney on this non few study. Vascular calcification in the proximal and distal renal arteries noted. There is mild symmet rical bilateral hydronephrosis. However, there are no obvious radiopaque calculi evident within the slightly dilated bilateral ureters. There is a suprapubic catheter noted in the collapsed urinary bl adder. The bladder is compressed by a grossly distended fecal filled rectum.. ABDOMINAL AORTA: There is a fusiform infrarenal abdominal aortic aneurysm. Maximum diameter 3.8 cm w hich is at the inferior mesenteric artery takeoff point level. The iliac arteries are heavily calcif ied but not significantly dilated. LYMPH NODES: There is no retroperitoneal nor paraaortic adenopathy. ABDOMINAL WALL: No evidence of significant anterior abdominal wall nor inguinal hernia. GI: The rectum is significantly distended by fecal material, measuring 12 x 10 cm the entire colon is enlarged. No pneumatosis. No appendicitis evident PELVIS: LYMPH NODES: There is no intrapelvic nor inguinal adenopathy. GI: No evidence of appendicitis.No evidence of sigmoid diverticulitis. URINARY BLADDER: Suprapubic catheter in place. REPRODUCTIVE: Prostate size upper normal. OSSEOUS: Left hip prosthesis. No significant osseous lesions. No fractures. No significant decubit us ulcers. IMPRESSION: 1. Large amount of fecal material in the rectum which is dilated to 12 x 10 cm and there is dilatatio n of the entire colon but without obvious wall edema, pneumatosis, free air, nor ascites. The append ix is seen and appears unremarkable. There is no significant diverticular disease. 2. Infrarenal abdominal aortic aneurysm with maximum diameter 3.8 cm. 3. Mild bilateral hydronephrosis and hydroureter which is probably related to the angle of the distal ureters which are deviated anteriorly into the urinary bladder which is compressed between the anter ior abdominal wall and the fecal filled of dilated rectum. There is also a suprapubic catheter withi n the urinary bladder lumen. There is cholelithiasis with multiple tiny and larger gallstones, these measuring up to 1.5 cm. No o bvious acute cholecystitis. No calculi in the nondilated CBD. First read by [facility]. RADIATION DOSE DELIVERED: 1,147.03mGy.cm Total DLP DATA REPOSITORY: All CT scans at this facility are submitted to the National Radiology Data Registry (NRDR) Dose Index Registry (DIR) with the [employer] ([employer]). RADIATION OPTIMIZATION: All CT scans at this facility use at least one of these dose optimization te chniques: automated exposure control; mA and/or kV adjustment per patient size (includes targeted exa ms where dose is matched to clinical indication); or iterative reconstruction.
--- NOTE | 2022-01-17 07:27 | W.ED.GENAD ---
Discharge Plan Disposition Patient Disposition: STILL A PATIENT Condition: Stable Discharge Details Chief Complaint: GI Bleed Clinical Impression: N&V (nausea and vomiting) Primary Care Provider: Sridhar Magaña ED Provider: Carlo Taylor [place] Meds and New Rx's Prescriptions: No Action morphine 15 mg tablet extended release 15 mg PO Q8H MDD 3 Qty: 30 0RF acetaminophen 500 mg capsule 500 mg PO TID Qty: 90 4RF diclofenac sodium 1 % gel 2 g topical TID Rx Instructions: apply to single elbow, wrist or hand; for hand includes palm/fingers/back of hand gabapentin 100 mg capsule 100 mg PO TID Rx Instructions: two caps AM, one cap AFTERNOON, two caps PM clopidogrel [Plavix] 75 mg tablet 75 mg PO DAILY polyethylene glycol 3350 17 gram/dose powder 17 g PO DAILY sennosides-docusate sodium [Senexon-S] 8.6-50 mg tablet 1 tab-cap PO QHS ascorbate calcium (vitamin C) 500 mg tablet 500 mg PO BID ferrous sulfate 325 mg (65 mg iron) tablet 325 mg PO BID furosemide [Lasix] 40 mg tablet 40 mg PO PRN Biofreeze (menthol) 5 % gel 1 applic topical BID PRN atorvastatin 20 mg tablet 20 mg PO DAILY Label Comments: TAKE ONE TABLET BY MOUTH ONE TIME DAILY metoprolol succinate 50 mg tablet extended release 24 hr 100 mg PO DAILY Label Comments: TAKE TWO TABLETS BY MOUTH DAILY lisinopril 5 mg tablet 5 mg PO DAILY AM Label Comments: TAKE ONE TABLET BY MOUTH ONE TIME DAILY nicotine 21 mg/24 hr Patch 24 Hour 21 mg transdermal Q24H epinephrine 0.3 mg/0.3 mL Auto-Injector 0.3 mg subcut PRN PRN fentanyl 25 mcg/hr Patch 72 Hour 25 mcg transdermal Q72H albuterol sulfate 90 mcg/actuation Hfa Aerosol Inhaler 90 mcg INHALATION TID vitamin B complex Capsule 1 cap PO DAILY budesonide-formoterol [Symbicort] 160-4.5 mcg/actuation Hfa Aerosol Inhaler 2 puff INHALATION DAILY Medical Decision Making 71 yo male with hx of cva, htn, chronic suprapubic barbour, who resides at the [facility] comes in with ems with n/v since last night. He has not been able to keep anything down since last night and staff at [facility] thought the vomit this morning looked similar to coffee grouds so sent him here. He arrives stable stating he still feels nausea. Denies fevers, chills, chest pain, dyspnea. His abdomen feels mildly distended and has tenderness in the mid and upper abdomen, no guarding or rebound. Will obtain cbc, cmp, lipase and given concern for possible sbo obtain ct abd/pelvis to further evaluate pt signed out to oncoming provider pending labs and imaging results Differential Diagnosis Differential Diagnosis: sbo, pancreatitis Medical Records Medical records reviewed: Yes I reviewed the patient's medical records. Lab Data Lab results reviewed: Yes I reviewed the patient's lab results. HPI General Mode of arrival: ambulatory. Date/Time Provider Initiated Documentation: 01/17/22 07:25. Limitations to Documentation: no limitations. Information obtained by: patient and EMS. History of Present Illness 71 year old M presents to the emergency department with the chief complaint of n/v, described as moderate, Patient started experiencing this day(s) (1) and it has been intermittent. No relieving factors improve symptom(s), No exacerbating factors reported . Patient did receive the following treatments prior to arrival, none Related Data Home Medications Medication Instructions Recorded Confirmed clopidogrel 75 mg tablet (Plavix) 75 mg PO DAILY 06/05/20 10/30/21 diclofenac sodium 1 % topical gel 2 g topical TID 06/05/20 10/30/21 gabapentin 100 mg capsule 100 mg PO TID 06/05/20 10/30/21 atorvastatin 20 mg tablet 20 mg PO DAILY 06/28/21 10/30/21 lisinopril 5 mg tablet 5 mg PO DAILY AM 06/28/21 10/30/21 metoprolol succinate 50 mg 100 mg PO DAILY 06/28/21 10/30/21 tablet,extended release 24 hr acetaminophen 500 mg capsule 500 mg PO TID pain #90 caps 07/08/21 10/30/21 morphine 15 mg tablet,extended 15 mg PO Q8H #30 tabs 07/08/21 10/30/21 release albuterol sulfate 90 mcg/actuation 90 mcg inhalation TID 08/12/21 10/30/21 aerosol inhaler budesonide-formoterol HFA 160 2 puff inhalation DAILY 08/12/21 10/30/21 mcg-4.5 mcg/actuation aerosol inhaler (Symbicort) epinephrine 0.3 mg/0.3 mL 0.3 mg subcut PRN PRN 08/12/21 10/30/21 injection, auto-injector fentanyl 25 mcg/hr transdermal 25 mcg transdermal Q72H 08/12/21 10/30/21 patch nicotine 21 mg/24 hr daily 21 mg transdermal Q24H 08/12/21 10/30/21 transdermal patch vitamin B complex 1 cap PO DAILY 08/12/21 10/30/21 polyethylene glycol 3350 17 17 g PO DAILY 09/09/21 10/30/21 gram/dose oral powder sennosides 8.6 mg-docusate sodium 1 tab-cap PO QHS 09/09/21 10/30/21 50 mg tablet (Senexon-S) ascorbate calcium (vitamin C) 500 500 mg PO BID 10/29/21 10/30/21 mg tablet ferrous sulfate 325 mg (65 mg 325 mg PO BID 10/29/21 10/30/21 iron) tablet furosemide 40 mg tablet (Lasix) 40 mg PO PRN 10/29/21 10/30/21 menthol 5 % topical gel (Biofreeze 1 applic topical BID PRN 10/29/21 10/30/21 (menthol)) Previous Rx's Medication Instructions Recorded acetaminophen 500 mg capsule 500 mg PO TID pain #90 caps 07/08/21 morphine 15 mg tablet,extended 15 mg PO Q8H #30 tabs 07/08/21 release Allergies Allergy/AdvReac Type Severity Reaction Status Date / Time egg Allergy Severe Anaphylaxis Unverified 08/12/21 15:22 varenicline [From Chantix] Allergy liver Unverified 08/12/21 15:22 failure General Stated Complaint: GI Bleed NAS: 2 Review of Systems All systems reviewed & are unremarkable except as noted in HPI and below Constitutional Constitutional: Denies chills, Denies fever(s) and Denies weakness Eyes Eyes: Denies loss of vision Cardiovascular Cardiovascular: Denies chest pain and Denies dyspnea Respiratory Respiratory: Denies cough and Denies dyspnea Integumentary/Breasts Skin/Breast: Denies rash Neurologic Neurologic: Denies loss of vision and Denies weakness PFSH All Active Problems (Updated 01/17/22 @ 07:30 by Carlo Taylor MD) Discharge planning issues (Acute) N&V (nausea and vomiting) (Acute) Urinary catheter in place (Acute) CVA (cerebral vascular accident) (Chronic) Chronic pain (Chronic) Palliative care patient (Acute) Decreased mobility (Acute) DNI (do not intubate) (Acute) DNR (do not resuscitate) (Acute) Medical History Alcohol abuse Chronic viral hepatitis C Difficulty in walking Essential hypertension Full incontinence of feces Hemiparesis Hx of TIA (transient ischemic attack) and stroke MRSA (methicillin resistant Staphylococcus aureus) Other abnormalities of gait and mobility Other chronic pain Pain in right hip Tinea unguium Tobacco use Unspecified osteoarthritis, unspecified site Unspecified urinary incontinence Very low level of personal hygiene Surgical History History of hip surgery Hx of cataract surgery Social History Smoking/Tobacco Use Status: Former Tobacco Use Smoking risk assessment performed?: Yes Alcohol Intake: former Drug use: Never Substance use type: does not use Do you feel safe at home: Yes Do you feel safe in your relationship?: Yes Additional Social history: pt wants to be at home Exam Const General: no acute distress Orientation: alert HENMT Head: normal to inspection Ears: external ears normal General nose exam: external nose normal Mouth: moist mucous membranes Eyes General: appearance normal, both eyes and all related structures Neck Neck: normal visual inspection Resp Effort & Inspection: normal respiratory effort and able to speak in complete sentences Cardio Rate: regular rate GI Palpation: soft and tender Skin General skin exam: no rashes or lesions noted Neuro General: patient alert and patient oriented x3 Extrem General: normal to inspection Psych Mental Status: mental status grossly normal Course Vital Signs Vital signs: Vital Signs Temperature 36.8 C 01/17/22 07:20 Pulse 105 H 01/17/22 07:20 Respiratory Rate 17 01/17/22 07:20 Blood Pressure 118/77 01/17/22 07:20 Pulse Oximetry 97 01/17/22 07:20 Temperature 36.8 C 01/17/22 07:20 Temperature Source Temporal Artery Scan 01/17/22 07:20 Pulse 105 H 01/17/22 07:20 Respiratory Rate 17 01/17/22 07:20 Respiratory Effort Non-Labored 01/17/22 07:25 Blood Pressure 118/77 01/17/22 07:20 Blood Pressure Position Supine 01/17/22 07:20 Pulse Oximetry 97 01/17/22 07:20 Oxygen Delivery Method Room Air 01/17/22 07:20 Oxygen Flow Rate 0 01/17/22 07:20 Pain Level 0 01/17/22 07:20
[2022-01-17 07:38] LABS: Source Nasal/Nares
[2022-01-17] MEDS: Normal Saline Flush 10 ML SYR IVP (07:44)
[2022-01-17] MEDS: Normal Saline 1,000 ML 1000 ML IV (07:44)
[2022-01-17] MEDS: Ondansetron 4 MG/2 ML VIAL IVP (07:45)
[2022-01-17 07:48] LABS: Lactate 1.3 mmol/L (0.6-1.4)
[2022-01-17 07:50] LABS: Abs Immature Grans 0.07 10^3/uL (0.0-0.06); Absolute Basophil Count 0.01 10^3/uL (0.0-0.2); Absolute Eosinophil Count 0.01 10^3/uL (0.0-0.7); Absolute Lymphocyte Count 0.97 10^3/uL (1.2-3.4); Absolute Monocyte Count 0.56 10^3/uL (0.1-0.8); Absolute Neutrophil Count 13.01 10^3/uL (1.2-6.7); Basophils % 0.1; Eosinophils % 0.1; HCT 30.9 % (40.0-50.0); HGB 10.1 g/dL (13.5-17.5); Immature Grans % 0.5; Lymphocytes % 6.6; MCH 29.9 pg (27.0-33.0); MCHC 32.7 % (32.0-36.0); MCV 91 fL (80-95); MPV 11.7 fL (8.0-11.0); Monocytes % 3.8; Neutrophils % 88.9; Platelet Count 240 10^3/uL (130-400); RBC 3.38 10^6/uL (4.36-5.78); RDW-SD 47.1 fL; WBC 14.63 10^3/uL (4.4-10.8)
[2022-01-17 08:06] LABS: INR 1.1 (0.9-1.1); PTT Activated 27.9 sec (21.0-27.5); Prothrombin Time 10.9 sec (9.3-11.0)
[2022-01-17 08:08] LABS: ALT 15 U/L (16-63); AST 14 U/L (15-37); Alkaline Phosphatase 52 U/L (46-116); Anion Gap 9.2 mmol/L (3-11); BUN 34 mg/dL (7-18); Bilirubin, Direct 0.2 mg/dL (0.0-0.2); Bilirubin, Total 0.5 mg/dL (0.2-1.0); CO2 26.8 mmol/L (21.0-32.0); Calcium 8.9 mg/dL (8.5-10.1); Chloride 104 mmol/L (98-107); Estimated GFR 32.92 (mL/min/1.73m2); Glucose 142 mg/dL (74-106); Lipase 55 U/L (73-393); Magnesium 2.3 mg/dL (1.8-2.4); Potassium 3.9 mmol/L (3.5-5.1); Sodium 140 mmol/L (136-145)
[2022-01-17 08:16] LABS: COVID-19 PCR Negative (Negative)
--- NOTE | 2022-01-17 10:10 | DI.VRAD_ITS ---
PROCEDURE INFORMATION: Exam: CT Abdomen And Pelvis Without Contrast Exam date and time: 01/17/2022 8:20 AM Age: 71 years old Clinical indication: Vomiting; Abdominal pain; Acute TECHNIQUE: Imaging protocol: Computed tomography of the abdomen and pelvis without contrast. Radiation optimization: All CT scans at this facility use at least one of these dose optimization techniques: automated exposure control; mA and/or kV adjustment per patient size (includes targeted exams where dose is matched to clinical indication); or iterative reconstruction. COMPARISON: CR XR HIP LT COMPLETE AP PELVIS 06/29/2021 1:29 AM FINDINGS: Tubes, catheters and devices: There is a suprapubic urinary bladder catheter in place. The urinary bladder is decompressed. Lungs: Apparent fibrosis in the dependent lung bases. Heart: The heart is mildly enlarged in size. Scattered coronary artery calcifications are present. Diaphragm: A small hiatal hernia is present. Liver: Normal. No mass. Gallbladder and bile ducts: Multiple calcified gallstones are present within the gallbladder. The gallbladder appears to be otherwise unremarkable. Pancreas: Normal. No ductal dilation. Spleen: Normal. No splenomegaly. Adrenal glands: Normal. No mass. Kidneys and ureters: Mild bilateral hydronephrosis is present. Scattered vascular calcifications are present within the kidneys. No evidence of urolithiasis. Scattered ill-defined hypodensities are present within the kidneys. Stomach and bowel: There is a large amount of stool present within the rectum, dilating the rectum to 16 x 10 cm. The small bowel and remainder of the colon is grossly unremarkable. Stomach is grossly normal. Appendix: No evidence of appendicitis. Intraperitoneal space: Unremarkable. No free air. No significant fluid collection. Vasculature: Diffuse aortoiliac calcifications are present. There is an irregular shaped aneurysm of the distal abdominal aorta just proximal to the bifurcation. This measures a maximum diameter of 3.6 cm. Lymph nodes: Unremarkable. No enlarged lymph nodes. Urinary bladder: See Tubes, catheters and devices finding. Reproductive: Unremarkable as visualized. Bones/joints: Left hip prosthesis is present. Osteopenia is present throughout. No aggressive appearing bony lesions are present. Soft tissues: Unremarkable. IMPRESSION: 1. Large amount of stool present within the rectum and sigmoid colon dilating the rectum to over 16 x 10 cm. 2. Small abdominal aortic aneurysm measuring up to 3.6 cm in diameter. 3. Mild bilateral hydronephrosis. 4. Cholelithiasis without evidence of cholecystitis. 5. Apparent fibrosis in the dependent lung bases. Clinical correlation is required. 6. Other chronic changes as described. Dictated and Authenticated by: Ricky Mercer MD. Ordering:ANGE Matos MD
--- NOTE | 2022-01-17 10:42 | ED.PROG_ITS ---
Date of service: 01/17/22 Time of Service: 10:43 Medical Decision Making Large amount of stool impacting rectum and colon seen on CT scan. Gaseous distention of colon. Bedside disimpaction was able to remove significant amount of soft impacted fecal material, administered Fleet enema as well as soapsuds enema at bedside. Patient had large amount of flatulence. Abdominal distention has greatly improved. Will monitor patient for further symptomatology post enema. Will likely discharge back to care facility. High clinical suspicion for opioid and iron induced constipation leading to nausea and vomiting due to impaction 11: 20 patient resting comfortably no acute distress. No further vomiting. Abd omen soft nontender and distention greatly reduced after passing large flatus and soft stool. Patient be discharged to care facility. Sign Out Sign Out Data: Sign Out Comment: n/v and abdominal pain since last night, reportedly [place] this [place], pending labs and ct Last updated by Carlo Taylor MD at 01/17/22 07:37 Discharge Plan Disposition Patient Disposition: STILL A PATIENT Condition: Stable Discharge Details Clinical Impression: N&V (nausea and vomiting), Constipation Primary Care Provider: Sridhar Magaña ED Provider: Sridhar Jolly Home Meds and New Rx's Prescriptions: No Action morphine 15 mg tablet extended release 15 mg PO Q8H MDD 3 Qty: 30 0RF acetaminophen 500 mg capsule 500 mg PO TID Qty: 90 4RF diclofenac sodium 1 % gel 2 g topical TID Rx Instructions: apply to single elbow, wrist or hand; for hand includes palm/fingers/back of hand gabapentin 100 mg capsule 100 mg PO TID Rx Instructions: two caps AM, one cap AFTERNOON, two caps PM clopidogrel [Plavix] 75 mg tablet 75 mg PO DAILY polyethylene glycol 3350 17 gram/dose powder 17 g PO DAILY sennosides-docusate sodium [Senexon-S] 8.6-50 mg tablet 1 tab-cap PO QHS ascorbate calcium (vitamin C) 500 mg tablet 500 mg PO BID ferrous sulfate 325 mg (65 mg iron) tablet 325 mg PO BID furosemide [Lasix] 40 mg tablet 40 mg PO PRN Biofreeze (menthol) 5 % gel 1 applic topical BID PRN atorvastatin 20 mg tablet 20 mg PO DAILY Label Comments: TAKE ONE TABLET BY MOUTH ONE TIME DAILY metoprolol succinate 50 mg tablet extended release 24 hr 100 mg PO DAILY Label Comments: TAKE TWO TABLETS BY MOUTH DAILY lisinopril 5 mg tablet 5 mg PO DAILY AM Label Comments: TAKE ONE TABLET BY MOUTH ONE TIME DAILY nicotine 21 mg/24 hr Patch 24 Hour 21 mg transdermal Q24H epinephrine 0.3 mg/0.3 mL Auto-Injector 0.3 mg subcut PRN PRN fentanyl 25 mcg/hr Patch 72 Hour 25 mcg transdermal Q72H albuterol sulfate 90 mcg/actuation Hfa Aerosol Inhaler 90 mcg INHALATION TID vitamin B complex Capsule 1 cap PO DAILY budesonide-formoterol [Symbicort] 160-4.5 mcg/actuation Hfa Aerosol Inhaler 2 puff INHALATION DAILY Discharge Instructions Instructions: Constipation (ED) Additional Instructions: Consider reducing and/or eliminating your dose of morphine as tolerated, also consider reducing or eliminating your iron as these are likely contributing to your severe constipation. Please return to the emergency department for any worsening symptoms.
== END 2022-01-17 11:54 | disposition still patient (30) ==
PROVIDERS: Emergency Medicine; Emergency Provider Emergency Medicine; PCP Family Medicine
DX: K59.00 Constipation, unspecified (principal); R11.2 Nausea with vomiting, unspecified; I10 Essential (primary) hypertension; R14.0 Abdominal distension (gaseous); Z20.822 Contact with and (suspected) exposure to COVID-19; Z87.891 Personal history of nicotine dependence; Z86.73 Personal history of transient ischemic attack (TIA), and cerebral infarction without residual deficits
CPT/HCPCS: 36415; 80053; 83690; 86850; 86900; 86901; 87635; 96361; 96374; 99284; 74176; 82248; 83605; 83735; 85025; 85610; 85730; J2405

== ENCOUNTER 2022-03-04 11:12 | Emergency (ER) | payer MEDICARE, MEDICAID, SELFPAY ==
[2022-03-04 11:14] VITALS: BP 112/64; PULSE 58; RESP 18; TEMP 36.6; O2SAT 96
--- NOTE | 2022-03-04 12:10 | W.ED.GENAD ---
Discharge Plan Disposition Patient Disposition: [facility] Discharge Details Clinical Impression: Suprapubic catheter dysfunction Primary Care Provider: Sridhar Magaña ED Provider: Cristina Yeung Home Meds and New Rx's Prescriptions: Continued morphine 15 mg tablet extended release 15 mg PO Q8H MDD 3 Qty: 30 0RF acetaminophen 500 mg capsule 500 mg PO TID Qty: 90 4RF diclofenac sodium 1 % gel 2 g topical TID Rx Instructions: apply to single elbow, wrist or hand; for hand includes palm/fingers/back of hand gabapentin 100 mg capsule 100 mg PO TID Rx Instructions: two caps AM, one cap AFTERNOON, two caps PM clopidogrel [Plavix] 75 mg tablet 75 mg PO DAILY polyethylene glycol 3350 17 gram/dose powder 17 g PO DAILY sennosides-docusate sodium [Senexon-S] 8.6-50 mg tablet 2 tab-cap PO QHS ascorbate calcium (vitamin C) 500 mg tablet 500 mg PO BID ferrous sulfate 325 mg (65 mg iron) tablet 325 mg PO BID furosemide [Lasix] 40 mg tablet 40 mg PO PRN Biofreeze (menthol) 5 % gel 1 applic topical BID PRN atorvastatin 20 mg tablet 20 mg PO HS Label Comments: TAKE ONE TABLET BY MOUTH ONE TIME DAILY metoprolol succinate 50 mg tablet extended release 24 hr 12.5 mg PO HS Label Comments: TAKE TWO TABLETS BY MOUTH DAILY lisinopril 5 mg tablet 5 mg PO DAILY AM Label Comments: TAKE ONE TABLET BY MOUTH ONE TIME DAILY nicotine 21 mg/24 hr Patch 24 Hour 21 mg transdermal Q24H epinephrine 0.3 mg/0.3 mL Auto-Injector 0.3 mg subcut PRN PRN fentanyl 25 mcg/hr Patch 72 Hour 25 mcg transdermal Q72H albuterol sulfate 90 mcg/actuation Hfa Aerosol Inhaler 90 mcg INHALATION Q4H PRN vitamin B complex Capsule 1 cap PO DAILY budesonide-formoterol [Symbicort] 160-4.5 mcg/actuation Hfa Aerosol Inhaler 2 puff INHALATION DAILY bisacodyl 10 mg Suppository 10 mg [place] PRN PRN Discharge Instructions Additional Instructions: Please return immediately to the emergency department if you develop any new or worsening symptoms, if your condition does not improve as expected, or if you become otherwise concerned. It is extremely important that you call soon as possible to make an appointment to be seen in follow-up for this visit by your primary care doctor. Referrals: Sridhar Magaña [Primary Care Provider] - Medical Decision Making Concern for displaced or obstructed suprapubic catheter, other. Exam/history at this time is not consistent with appendicitis, other acute emergent intra-abdominal process, sepsis. Plan for screening labs, consult urology. Labs reviewed, hemoglobin 9.9 (at baseline), creatinine 1.9 (at baseline). I discussed patient presentation with Precious Henry urology, who will be down to see patient at bedside. Urology at bedside. On bedside US suprapubic catheter appears in correct location. Catheter flushed by urology with immediate drainage from penis. States this is likely due to bladder spasm, recommends Myrbetriq for 14 days with outpatient follow-up. After urology had left bedside, barbour balloon was attempted to be inflated with patient reporting significant penile pain with 1 cc of inflation. Barbour was not inflated, urology paged, will return to see patient. Urology at bedside, pulled back suprapubic catheter, urine flowed well and balloon inflated 5 cc without any pain. Urology states that catheter tip likely in the urethra initially which was cause for pain and obstruction, no further need for Myrbetriq. I had a discussion with Patient regarding return to emergency department precautions, home care, and importance of outpatient follow-up. Pt verbalizes understanding of the plan and is amenable. Patient discharged to home with clear plan for outpatient follow-up. All questions were answered. Disposition decision was made weighing the risks and benefits of hospitalization versus outpatient treatment, the risk for further decompensation, and the patient's wishes. Medical Records Medical records reviewed: Yes I reviewed the patient's medical records. Lab Data Lab results reviewed: Yes I reviewed the patient's lab results. Labs: Laboratory Tests Range/Units 03/04/22 03/04/22 12:35 12:35 WBC (4.4-10.8) 10^3/uL 9.15 RBC (4.36-5.78) 10^6/uL 3.28 L Hgb (13.5-17.5) g/dL 9.9 L Hct (40.0-50.0) % 30.4 L MCV (80-95) fL 93 MCH (27.0-33.0) pg 30.2 MCHC (32.0-36.0) % 32.6 RDW (11.8-14.1) % 13.6 Plt Count (130-400) 10^3/uL 243 MPV (8.0-11.0) fL 11.1 H Immature Gran % 0.2 Neutrophils % 71.4 Lymphocytes % 21.6 Monocytes % 5.5 Eosinophils % 1.0 Basophils % 0.3 Nucleated RBC % (0.0-0.3) % 0.0 Absolute Neutrophils (1.2-6.7) 10^3/uL 6.53 Absolute Lymphocytes (1.2-3.4) 10^3/uL 1.98 Absolute Monocytes (0.1-0.8) 10^3/uL 0.50 Absolute Eosinophils (0.0-0.7) 10^3/uL 0.09 Absolute Basophils (0.0-0.2) 10^3/uL 0.03 Sodium (136-145) mmol/L 140 Potassium (3.5-5.1) mmol/L 4.4 Chloride (98-107) mmol/L 104 Carbon Dioxide (21.0-32.0) mmol/L 28.7 Anion Gap (3-11) mmol/L 7.3 BUN (7-18) mg/dL 28 H Creatinine (0.70-1.30) mg/dL 1.9 H Est GFR (CKD-EPI 2020) (mL/min/1.73m2) 36.79 Glucose (74-106) mg/dL 102 Calcium (8.5-10.1) mg/dL 9.4 Magnesium (1.8-2.4) mg/dL 2.0 Total Bilirubin (0.2-1.0) mg/dL 0.5 AST (15-37) U/L 14 L ALT (16-63) U/L 14 L Alkaline Phosphatase (46-116) U/L 48 Total Protein (6.4-8.2) g/dL 7.8 Albumin (3.4-5.0) g/dL 3.3 L HPI General Mode of arrival: EMS. Date/Time Provider Initiated Documentation: 03/04/22 11:37. Limitations to Documentation: no limitations. Information obtained by: patient, RN notes reviewed and old records reviewed. HPI Narrative: Gama Whitmore is a 70-year-old man with a history of CVA with exclusive use of wheelchair, hypertension, urinary incontinence status post suprapubic catheter presenting to emergency department with catheter concern. Patient resides at the [facility][1]. Staff at the [facility][1] sent patient to the emergency department as his suprapubic catheter was changed this morning and staff were unable to inflate the balloon without causing pain. Staff also report that urine was draining from penis as opposed to the catheter. Patient reports that he has had several days of pain in his pelvic area around the suprapubic catheter that has been progressively improving. He reports pain is mild at this time. He denies any other pain or any other symptoms. No fever, cough, shortness of breath, vomiting, diarrhea. He reports chronic weakness from stroke affecting his left arm and leg, denies any weakness. Patient states he has been eating and drinking as usual. Related Data Home Medications Medication Instructions Recorded Confirmed clopidogrel 75 mg tablet (Plavix) 75 mg PO DAILY 06/05/20 01/17/22 diclofenac sodium 1 % topical gel 2 g topical TID 06/05/20 03/04/22 gabapentin 100 mg capsule 100 mg PO TID 06/05/20 03/04/22 atorvastatin 20 mg tablet 20 mg PO HS 06/28/21 03/04/22 lisinopril 5 mg tablet 5 mg PO DAILY AM 06/28/21 01/17/22 metoprolol succinate 50 mg 12.5 mg PO HS 06/28/21 03/04/22 tablet,extended release 24 hr acetaminophen 500 mg capsule 500 mg PO TID pain #90 caps 07/08/21 03/04/22 morphine 15 mg tablet,extended 15 mg PO Q8H #30 tabs 07/08/21 03/04/22 release albuterol sulfate 90 mcg/actuation 90 mcg inhalation Q4H PRN 08/12/21 03/04/22 aerosol inhaler budesonide-formoterol HFA 160 2 puff inhalation DAILY 08/12/21 01/17/22 mcg-4.5 mcg/actuation aerosol inhaler (Symbicort) epinephrine 0.3 mg/0.3 mL 0.3 mg subcut PRN PRN 08/12/21 03/04/22 injection, auto-injector fentanyl 25 mcg/hr transdermal 25 mcg transdermal Q72H 08/12/21 01/17/22 patch nicotine 21 mg/24 hr daily 21 mg transdermal Q24H 08/12/21 10/30/21 transdermal patch vitamin B complex 1 cap PO DAILY 08/12/21 01/17/22 polyethylene glycol 3350 17 17 g PO DAILY 09/09/21 03/04/22 gram/dose oral powder sennosides 8.6 mg-docusate sodium 2 tab-cap PO QHS 09/09/21 03/04/22 50 mg tablet (Senexon-S) ascorbate calcium (vitamin C) 500 500 mg PO BID 10/29/21 03/04/22 mg tablet ferrous sulfate 325 mg (65 mg 325 mg PO BID 10/29/21 03/04/22 iron) tablet furosemide 40 mg tablet (Lasix) 40 mg PO PRN 10/29/21 10/30/21 menthol 5 % topical gel (Biofreeze 1 applic topical BID PRN 10/29/21 10/30/21 (menthol)) bisacodyl 10 mg rectal suppository 10 mg OH PRN PRN 03/04/22 03/04/22 Previous Rx's Medication Instructions Recorded acetaminophen 500 mg capsule 500 mg PO TID pain #90 caps 07/08/21 morphine 15 mg tablet,extended 15 mg PO Q8H #30 tabs 07/08/21 release Allergies Allergy/AdvReac Type Severity Reaction Status Date / Time egg Allergy Severe Anaphylaxis Unverified 03/04/22 11:46 varenicline [From Chantix] Allergy liver Unverified 03/04/22 11:46 failure General Stated Complaint: Urinary NAS: 3 Review of Systems Narrative: Constitutional: denies fevers Eyes: denies eye pain ENT: denies ear pain, dental pain, sore throat Cardiovascular: denies chest pain, edema Respiratory: denies SOB, cough GI: denies abdominal pain, vomiting, diarrhea : denies flank pain, reports suprapubic pain around site of suprapubic catheter MSK: denies back pain, neck pain, arthralgias, myalgias Skin: denies rash Neuro: denies headaches, numbness, reports chronic left-sided weakness unchanged PFSH All Active Problems (Updated 03/04/22 @ 14:58 by Cristina Yeung MD) Suprapubic catheter dysfunction (Acute) Discharge planning issues (Acute) Urinary catheter in place (Acute) CVA (cerebral vascular accident) (Chronic) Chronic pain (Chronic) Palliative care patient (Acute) Decreased mobility (Acute) DNI (do not intubate) (Acute) DNR (do not resuscitate) (Acute) Medical History Adult failure to thrive Alcohol abuse Cerebral infarction Chronic viral hepatitis C Difficulty in walking Essential hypertension Full incontinence of feces Hemiparesis Hemiplegia Hemiplegia affecting left dominant side Hx of TIA (transient ischemic attack) and stroke MRSA (methicillin resistant Staphylococcus aureus) Oropharyngeal dysphagia Other abnormalities of gait and mobility Other chronic pain Pain in right hip Tinea unguium Tobacco use Unspecified osteoarthritis, unspecified site Unspecified urinary incontinence 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 Very low level of personal hygiene Surgical History History of hip surgery Hx of cataract surgery Social History Smoking/Tobacco Use Status: Former Tobacco Use Smoking risk assessment performed?: Yes Alcohol Intake: former Drug use: Never Substance use type: does not use Do you feel safe at home: Yes Do you feel safe in your relationship?: Yes Additional Social history: pt wants to be at home Exam Narrative Exam Narrative: Constitutional: Chronically ill but acutely [id number], pleasant, conversing normally HENT: head atraumatic/normocephalic/normal inspection, mucous membranes moist Eyes: conjunctiva normal, sclera normal, pupils 3mm b/l Neck: no stridor, normal ROM, trachea midline Chest: normal inspection Resp: normal work of breathing, LCTAB Cardio: normal rate, normal rhythm, no murmur appreciated GI: abdomen soft, non-tender, non-distended, suprapubic catheter in place, no erythema or drainage at site, catheter tube/bag empty,, diaper dry, minimal pelvic tenderness to palpation around catheter site Back: normal inspection, no rash Skin: warm, dry, normal color, no rash Neuro: alert, not altered, left-sided hemiparesis, normal tone Ext: no edema Psych: normal mood, normal affect, normal behavior Course Vital Signs Vital signs: Vital Signs Temperature 36.6 C 03/04/22 11:14 Pulse 58 L 03/04/22 11:14 Respiratory Rate 18 03/04/22 11:14 Blood Pressure 112/64 03/04/22 11:14 Pulse Oximetry 96 03/04/22 11:14 Temperature 36.6 C 03/04/22 11:14 Pulse 58 L 03/04/22 11:14 Respiratory Rate 18 03/04/22 11:14 Respiratory Effort 03/04/22 11:23 Blood Pressure 112/64 03/04/22 11:14 Pulse Oximetry 96 03/04/22 11:14 Oxygen Delivery Method Room Air 03/04/22 11:14 Oxygen Flow Rate 0 03/04/22 11:14 Pain Level 2 03/04/22 11:14
[2022-03-04 12:39] LABS: Abs Immature Grans 0.02 10^3/uL (0.0-0.06); Absolute Basophil Count 0.03 10^3/uL (0.0-0.2); Absolute Eosinophil Count 0.09 10^3/uL (0.0-0.7); Absolute Lymphocyte Count 1.98 10^3/uL (1.2-3.4); Absolute Neutrophil Count 6.53 10^3/uL (1.2-6.7); Basophils % 0.3; HCT 30.4 % (40.0-50.0); HGB 9.9 g/dL (13.5-17.5); Immature Grans % 0.2; Lymphocytes % 21.6; MCH 30.2 pg (27.0-33.0); MCHC 32.6 % (32.0-36.0); MCV 93 fL (80-95); MPV 11.1 fL (8.0-11.0); Monocytes % 5.5; Neutrophils % 71.4; Platelet Count 243 10^3/uL (130-400); RBC 3.28 10^6/uL (4.36-5.78); RDW 13.6 % (11.8-14.1); WBC 9.15 10^3/uL (4.4-10.8)
[2022-03-04] MEDS: Normal Saline 500 ML IV (12:45)
[2022-03-04 12:57] LABS: ALT 14 U/L (16-63); AST 14 U/L (15-37); Albumin 3.3 g/dL (3.4-5.0); Alkaline Phosphatase 48 U/L (46-116); Anion Gap 7.3 mmol/L (3-11); BUN 28 mg/dL (7-18); Bilirubin, Total 0.5 mg/dL (0.2-1.0); CO2 28.7 mmol/L (21.0-32.0); CREATININE 1.9 mg/dL (0.70-1.30); Calcium 9.4 mg/dL (8.5-10.1); Chloride 104 mmol/L (98-107); Estimated GFR 36.79 (mL/min/1.73m2); Glucose 102 mg/dL (74-106); Potassium 4.4 mmol/L (3.5-5.1); Sodium 140 mmol/L (136-145); Total Protein 7.8 g/dL (6.4-8.2)
[2022-03-04] MEDS: MORPHine 4 MG/ML SYR (13:45)
[2022-03-04] MEDS: Mirabegron 25 MG TABCR PO (15:03)
[2022-03-04 15:05] VITALS: BP 122/63; PULSE 82; RESP 18; O2SAT 93
--- NOTE | 2022-03-05 15:21 | UCONE_ITS ---
Date of service: 03/04/22 Time of Service: 13:00 Assessment and Plan Assessment and plan (1) Suprapubic catheter dysfunction: Status: Acute Assessment and plan: On initial assessment of consult, ER provider was bedside doing [id number] ultrasound and noted that catheter tip was at the posterior aspect of the bladder. Based upon this and urine being irrigated through the current suprapubic catheter, we discussed the possibility for bladder spasms causing the leakage from urethra into his brief. At that time recommendation was for inflating the balloon to keep the catheter in place as well as medication for bladder spasms. ER provider was unable to inflate the balloon without patient being in discomfort. Patient was reassessed and found that the catheter tip was actually down the urethra and the prostate area and not the posterior bladder as [id number] ultrasound initially noted. Suprapubic catheter was slightly retracted back out of the patient. Urine then immediately flowed through the catheter to the collecting bag. Catheter balloon for the suprapubic tube was inflated with 5 cc without any pain or discomfort to the patient. [id number] ultrasound was then again performed to note that the balloon and the catheter tip were now trending in the correct position. Thus, at this point it was a suprapubic catheter misplacement. Therefore, we would not at this point recommend anything for bladder spasms but proper catheter placement assessment in the future for catheter changes. ER provider was appraised of the above information. Dictation was done by Dragon voice recognition. Errors may be present within the note. A total of 35 minutes was spent reviewing this patient's EMR, [id number] time, and documenting. History of Present Illness History of Present Illness Chief Complaint: urethral erosion Narrative: Mr. Whitmore is a 71-year-old male with history of a stroke and is essentially bedbound. He has incontinence of both urine and feces. He did have an indwelling catheter for several years that was changed monthly. He then developed urethral erosion from the pressure of his catheter. Suprapubic tube placement was then performed earlier this year in 2021. He now resides at a local [place] [facility]. They change his suprapubic catheter monthly. He presents to the emergency room today. The concern is that his suprapubic tube is blocked or improperly placed. ER provider asked for urology consult on this matter. They note that in report from the [place] [facility] that the catheter was changed this morning and that urine has been not been draining through the catheter but through the penis saturating his briefs. We also note that the catheter was placed but balloon was not inflated due to patient having discomfor t as balloon was being inflated. Patient is not having current abdominal pain, dysuria, gross hematuria or flank pain. He also notes no fevers, chills or nausea. Consults Consult date: 03/04/22 Requesting physician: Cristina Yeung Review of Systems Narrative: See HPI PFSH All Active Problems (Updated 03/04/22 @ 14:58 by Cristina Yeung MD) Suprapubic catheter dysfunction (Acute) Discharge planning issues (Acute) Urinary catheter in place (Acute) CVA (cerebral vascular accident) (Chronic) Chronic pain (Chronic) Palliative care patient (Acute) Decreased mobility (Acute) DNI (do not intubate) (Acute) DNR (do not resuscitate) (Acute) Medical History Adult failure to thrive Alcohol abuse Cerebral infarction Chronic viral hepatitis C Difficulty in walking Essential hypertension Full incontinence of feces Hemiparesis Hemiplegia Hemiplegia affecting left dominant side Hx of TIA (transient ischemic attack) and stroke MRSA (methicillin resistant Staphylococcus aureus) Oropharyngeal dysphagia Other abnormalities of gait and mobility Other chronic pain Pain in right hip Tinea unguium Tobacco use Unspecified osteoarthritis, unspecified site Unspecified urinary incontinence 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 Results Last Vital Signs Temp 97.9 F 03/04/22 11:14 Pulse 82 03/04/22 15:05 Resp 18 03/04/22 15:05 BP 122/63 03/04/22 15:05 Pulse Ox 93 03/04/22 15:05 Labs Result diagrams: 03/04/22 12:35 03/04/22 12:35
== END 2022-03-04 18:09 | disposition designated cancer center or children's hospital (05) ==
PROVIDERS: Emergency Provider Student in an Organized Health Care Education/Training Program; PCP Family Medicine
DX: T83.010A Breakdown (mechanical) of cystostomy catheter, initial encounter (principal); I10 Essential (primary) hypertension; Y84.6 Urinary catheterization as the cause of abnormal reaction of the patient, or of later complication, without mention of misadventure at the time of the procedure
CPT/HCPCS: 36415; 80053; 96360; 96372; 99283; 99284; 83735; 85025; J2270

== ENCOUNTER → 2022-04-07 02:56 | Outpatient (CLI) | payer MEDICARE, MEDICAID, SELFPAY ==
--- NOTE | 2022-04-07 11:00 | ST.MBS_ITS ---
Date of Service Date of service: 04/07/22 Time of Service: 11:19 Modified Barium Swallow Study Findings: Video fluoroscopic Swallowing Evaluation (VFSE) / Modified Barium Swallow Study (MBSS) Speech Language Pathology Report Patient referred for VFSE/MBSS from Aye Eli at [facility] given oral pharyngeal dysphagia in setting of prior R CVA. HPI & Patient report of function: Patient is a 71 year old M with history of multiple CVAs, adult FTT, hepatitis C, ETOH, oropharynteal dysphagia, residing at [facility] and [facility]. Referred at request of treating PACKAGING SALES CONSULTANT to ensure appropriate diet textures and provide objective assessment of swallow function in setting of suspected oral- pharyngeal dysphagia and intolerance of thin liquids and oral phase impairments. Patient currently on IDDSI 5 SOLIDS (minced/moist) and IDDSI 2 LIQUIDS (Mildly thick) diet based on PACKAGING SALES CONSULTANT evaluation. PFSH Medical History Adult failure to thrive Alcohol abuse Cerebral infarction Chronic viral hepatitis C Difficulty in walking Essential hypertension Full incontinence of feces Hemiparesis Hemiplegia Hemiplegia affecting left dominant side Hx of TIA (transient ischemic attack) and stroke MRSA (methicillin resistant Staphylococcus aureus) Oropharyngeal dysphagia Other abnormalities of gait and mobility Other chronic pain Pain in right hip Tinea unguium Tobacco use Unspecified osteoarthritis, unspecified site Unspecified urinary incontinence 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 Very low level of personal hygiene Surgical History? History of hip surgery Hx of cataract surgery IMPRESSIONS: Swallow safety is impaired; swallow efficiency is impaired. Moderate chronic oropharyngeal dysphagia characterized primarily by poor oral prep and control and significantly delayed pharyngeal swallow initiation at level of pyriform sinuses resulting in aspiration of thin liquids during the swallow x1 with large volumes, requiring cued cough with questionable ability to clear subglottic residue. Smaller volumes resulted in consistent penetration during the swallow with post-swallow residue within the laryngeal vestibule at risk of aspiration after swallow completion. Patient appears to be at moderate risk for potential aspiration PNA and/or pulmonary compromise and low risk for malnutrition, moderate risk for dehydration. Diet modification is not indicated; non-oral nutrition is not indicated. Swallow prognosis is fair given: cognitive status and pending patient/caregiver training in risk management as outlined, including use of trialed compensatory strategies. Patient appears to be a fair candidate for behavioral swallow rehabilitation. RECOMMENDATIONS: Diet Texture Recommendation:? IDDSI LEVEL SOLIDS 5-Minced & Moist Solids LIQUIDS 2-Mildly Thick Liquids Please see further details at?www.iddsi.org http://www.iddsi.org/ MEDICATIONS Whole with 2-Mildly Thick Liquids Risk Management Strategies:? Behavioral reflux precautions, including upright position during + 90 mins after meals. Small bites, approx [id number] Small sips, approx 10 mL Multiple swallows per bolus to encourage clearance of oralpharyngeal stasis/residue For therapeutic trials: Control risk factors for aspiration pneumonia via (a) thorough oral hygiene & (b) maintaining physical mobility as tolerated PLAN: Therapy: May consider the following: Targeted Oropharyngeal Exercise for deficits noted in objective section below per treating PACKAGING SALES CONSULTANT, Further Compensatory Strategy Training (e.g., provale cup, supraglottic swallow or gentle throat clear with upgraded trials of thin liquids pending patient goals/cognitive abilities) Further Training/Education in Risk Management, Training in RMST Program Goals: Defer to treating clinician Follow-up exam: Defer to treating clinician ----- OBJECTIVE Videofluoroscopic Swallow Evaluation (VFSE/MBSS) was conducted in the lateral projection by Speech-Language Pathologist, in collaboration with Radiologist, to evaluate oropharyngeal swallow function. Anatomic view under fluoroscopy: WFL and edentulous PO Barium Contrast Trials Oral barium water-soluble contrast was administered as follows: IDDSI Level 0 Varibar thin liquid (40% w/v) IDDSI Level 2 Varibar nectar thick/mildly thick liquid (40% w/v) IDDSI Level 4 Varibar pudding/pureed/extremely thick (40% w/v) IDDSI Level 7 Regular Solid: 1/2 pio cracker coated in 3 mL Varibar pudding 13 mm barium tablet taken with Mildly thick Liquids. MBSImP Component Scores: COMPONENT Scale SCORE 1 Lip closure (0-4) 4 Resulted in escape beyond mid-chin 2 Hold Position (0-3) 2 Resulted in posterior escape of less than half of the bolus 3 Bolus Preparation (0-4) 2 Demonstrated disorganized chewing/mashing with renetta id pieces of bolus unchewed 4 Bolus Transport (0-4) 1 Demonstrated delayed initiation of tongue motion 5 Oral Residue (0-4) 2 Was a collection on oral structures 6 Swallow Initiation (0-4) 3 Occurred when the bolus head was in the pyriform sinuses 7 Soft Palate Elevation (0-4) 0 Resulted in no bolus between soft palate and t he pharyngeal wall 8 Laryngeal Elevation (0-3) 1 Was decreased with partial superior movement of thyroid cartilage/partial approximation of arytenoids to epiglottic petiole 9 Anterior Hyoid Motion (0-2) 0 Demonstrated complete anterior movement 10 Epiglottic Movement (0-2) 0 Resulted in complete inversion 11 Laryngeal Closure (0-2) 1 Was incomplete with narrow a column of air/contra st in laryngeal vestibule 12 Pharyngeal Stripping Wave (0-2) 1 Was present, but diminished 13 Pharyngeal Contraction (0-3) NA 14 PES Opening (0-3) 0 Was completely distended and complete duration with no obstruction of flow 15 Tongue Base Retraction (0-4) 1 Allowed a trace column of contrast or air between tongue base and pharyngeal wall 16 Pharyngeal Residue (0-4) 1 Showed a trace within or on pharyngeal structure s 17 Esophageal Clearance (0-4) NA Results: COMPONENT Scale SCORE A 1 Oral Score (0-18) 10 2 Pharyngeal Score (0-29) 3 3 Esophageal Score (0-4) 0 Dysphagia Outcome and Severity Scale: COMPONENT Scale SCORE 1 LEVEL (1-7) 3 Full PO: Modified Diet and/or Cocoa - Moderate dysphagi a; Total assist / Supervision or strategies 2 or more diet consistencies restricted Penetration-Aspiration Scale: COMPONENT Scale SCORE 1 Thin liquid (1-8) 8 Contrast entered the airway, passed below the vocal fold s, and no effort was made to eject. 2 [place] thick (1-8) 1 Contrast did not enter the airway 3 Honey thick (1-8) NA 4 Pudding thick (1-8) 1 Contrast did not enter the airway 5 Cookie (1-8) 1 Contrast did not enter the airway Trialed Compensatory Strategies & Outcome: Maneuvers Successful (+) Unsuccessful (-) Postures Successful (+) Unsuccessful (-) 3 second Preparatory Set? ? +/- Chin Tuck Posture? ? Cough? ? Posterior Head tilt? Reflexive? Cued? ? - ? ? Throat Clear? ? Head Tilt to? Reflexive? Left? Cued? Right? ? Saliva swallow? ? + to reduce oral residue Head Turn/Rotate to? ? Supraglottic Swallow? Left? ? Super-supraglottic Swallow? Right? ? Bolus Modifications Successful (+) Unsuccessful (-) Delivery/Alternating Consistencies ? Follow with Liquid Wash ? Follow with Solid Bolus? Delivery/Via Straw? ? Reduced Volume? ? + Reduced Rate of Intake? ? + Increased Viscosity? ? + Other:?? ? Thank you for allowing us to take part in this patient's care. Please feel free to contact the [facility] Speech Language Pathology Department with any questions/concerns. Coding CPT Codes MOTION FLUOROSCOPY/SWALLOW - [id number] ([id number])
[2022-04-07] MEDS: Barium Sulfate 700 MG TAB PO (11:26)
[2022-04-07] MEDS: Barium Sulfate 81% w/w for Oral Suspension 148 GM BTL 70 GM PO (11:28)
[2022-04-07] MEDS: Barium Sulfate Oral Paste 40% W/V 230 ML TUBE PO (11:28)
[2022-04-07] MEDS: Barium Sulfate 40% W/V 240 ML BTL 70 ML PO (11:29)
--- NOTE | 2022-04-07 11:30 | DI.RAD_ITS ---
Exam(s) RF MODIFIED SPEECH BA SWALLOW TECHNIQUE: Modified barium swallow was performed in conjunction with speech pathology. CONTRAST MATERIAL: Oral barium Oral water soluble contrast was administered. COMPARISON: No exams were available for comparison FINDINGS: Note that this is not a dedicated esophagram, distal esophagus not evaluated. See separate speech therapy report. Fluoroscopic guidance was provided during modified barium swallow performed our department in conjunc tion with the therapist. Some mild penetration was observed but no tristan aspiration evident. IMPRESSION: As above. See separate speech therapist report. RADIATION DOSE DELIVERED: pooja Arredondo=9.93 mGy
== END ==
PROVIDERS: PCP Family Medicine; Visit Provider Nurse Practitioner Gerontology
DX: R13.12 Dysphagia, oropharyngeal phase (principal)
CPT/HCPCS: 92611; 74221

== ENCOUNTER 2022-04-15 15:36 | Outpatient (REF) | payer MEDICARE, MEDICAID, SELFPAY ==
[2022-04-15 16:35] LABS: Abs Immature Grans 0.03 10^3/uL (0.0-0.06); Absolute Basophil Count 0.01 10^3/uL (0.0-0.2); Absolute Eosinophil Count 0.06 10^3/uL (0.0-0.7); Absolute Lymphocyte Count 1.81 10^3/uL (1.2-3.4); Absolute Monocyte Count 0.61 10^3/uL (0.1-0.8); Absolute Neutrophil Count 6.06 10^3/uL (1.2-6.7); Basophils % 0.1; Eosinophils % 0.7; HGB 8.9 g/dL (13.5-17.5); Immature Grans % 0.3; Lymphocytes % 21.1; MCH 30.1 pg (27.0-33.0); MCHC 31.8 % (32.0-36.0); MCV 95 fL (80-95); MPV 12.2 fL (8.0-11.0); Monocytes % 7.1; Neutrophils % 70.7; Platelet Count 205 10^3/uL (130-400); RBC 2.96 10^6/uL (4.36-5.78); RDW 13.6 % (11.8-14.1); RDW-SD 46.6 fL; WBC 8.58 10^3/uL (4.4-10.8)
[2022-04-15 16:52] LABS: ALT 15 U/L (16-63); AST 12 U/L (15-37); Albumin 2.9 g/dL (3.4-5.0); Alkaline Phosphatase 49 U/L (46-116); Anion Gap 6.3 mmol/L (3-11); BUN 29 mg/dL (7-18); Bilirubin, Total 0.5 mg/dL (0.2-1.0); CO2 26.7 mmol/L (21.0-32.0); CREATININE 2.3 mg/dL (0.70-1.30); Calcium 8.5 mg/dL (8.5-10.1); Chloride 104 mmol/L (98-107); Estimated GFR 29.25 (mL/min/1.73m2); Glucose 127 mg/dL (74-106); Potassium 4.9 mmol/L (3.5-5.1); Sodium 137 mmol/L (136-145); Total Protein 6.8 g/dL (6.4-8.2)
== END 2022-04-15 15:37 | disposition home or self-care (01) ==
LOC: LBN 15:36
PROVIDERS: PCP Family Medicine; Visit Provider Nurse Practitioner Gerontology
DX: R50.9 Fever, unspecified (principal); I10 Essential (primary) hypertension; R79.89 Other specified abnormal findings of blood chemistry; D64.9 Anemia, unspecified
CPT/HCPCS: 80053; 85025

== ENCOUNTER 2022-07-06 19:00 | Outpatient (REF) | payer MEDICARE, MEDICAID, SELFPAY ==
[2022-07-06 20:15] LABS: Abs Immature Grans 0.04 10^3/uL (0.0-0.06); Absolute Basophil Count 0.03 10^3/uL (0.0-0.2); Absolute Eosinophil Count 0.19 10^3/uL (0.0-0.7); Absolute Lymphocyte Count 1.86 10^3/uL (1.2-3.4); Absolute Monocyte Count 0.91 10^3/uL (0.1-0.8); Absolute Neutrophil Count 7.74 10^3/uL (1.2-6.7); Basophils % 0.3; Eosinophils % 1.8; HCT 33.6 % (40.0-50.0); HGB 10.3 g/dL (13.5-17.5); Immature Grans % 0.4; Lymphocytes % 17.3; MCH 29.9 pg (27.0-33.0); MCHC 30.7 % (32.0-36.0); MCV 97 fL (80-95); MPV 11.7 fL (8.0-11.0); Monocytes % 8.4; Neutrophils % 71.8; Platelet Count 185 10^3/uL (130-400); RBC 3.45 10^6/uL (4.36-5.78); RDW 13.7 % (11.8-14.1); RDW-SD 48.9 fL; WBC 10.77 10^3/uL (4.4-10.8)
[2022-07-06 20:33] LABS: ALT 15 U/L (16-63); AST 14 U/L (15-37); Albumin 3.6 g/dL (3.4-5.0); Alkaline Phosphatase 51 U/L (46-116); BUN 29 mg/dL (7-18); Bilirubin, Total 0.5 mg/dL (0.2-1.0); CREATININE 2.1 mg/dL (0.70-1.30); Calcium 9.3 mg/dL (8.5-10.1); Chloride 107 mmol/L (98-107); Estimated GFR 32.42 (mL/min/1.73m2); Glucose 92 mg/dL (74-106); NT-proBNP 1333 pg/mL (<300); Potassium 4.7 mmol/L (3.5-5.1); Sodium 143 mmol/L (136-145); Total Protein 7.3 g/dL (6.4-8.2)
== END 2022-07-06 19:01 | disposition home or self-care (01) ==
LOC: LBN 19:00
PROVIDERS: PCP Family Medicine; Visit Provider Nurse Practitioner Gerontology
DX: I10 Essential (primary) hypertension (principal); D64.9 Anemia, unspecified; R68.89 Other general symptoms and signs; Z86.73 Personal history of transient ischemic attack (TIA), and cerebral infarction without residual deficits; R06.89 Other abnormalities of breathing
CPT/HCPCS: 80053; 83880; 85025

== ENCOUNTER 2022-07-30 17:30 | Outpatient (REF) | payer MEDICARE, MEDICAID, SELFPAY ==
[2022-07-30 17:46] LABS: Abs Immature Grans 0.03 10^3/uL (0.0-0.06); Absolute Basophil Count 0.02 10^3/uL (0.0-0.2); Absolute Eosinophil Count 0.02 10^3/uL (0.0-0.7); Absolute Lymphocyte Count 1.15 10^3/uL (1.2-3.4); Absolute Monocyte Count 0.37 10^3/uL (0.1-0.8); Absolute Neutrophil Count 7.52 10^3/uL (1.2-6.7); Basophils % 0.2; Eosinophils % 0.2; HCT 28.7 % (40.0-50.0); HGB 9.6 g/dL (13.5-17.5); Immature Grans % 0.3; Lymphocytes % 12.6; MCH 30.7 pg (27.0-33.0); MCHC 33.4 % (32.0-36.0); MCV 92 fL (80-95); MPV 11.1 fL (8.0-11.0); Monocytes % 4.1; Neutrophils % 82.6; Platelet Count 243 10^3/uL (130-400); RBC 3.13 10^6/uL (4.36-5.78); RDW 13.1 % (11.8-14.1); RDW-SD 43.5 fL; WBC 9.11 10^3/uL (4.4-10.8)
[2022-07-30 17:59] LABS: Iron 21 ug/dL (65-175); Total Iron Binding Capacity 143 ug/dL (250-450); Transferrin Sat 15 % (20-55)
[2022-07-30 18:01] LABS: Hemoglobin A1C 5.3 % (<5.7)
[2022-07-30 18:12] LABS: ALT 17 U/L (16-63); AST 11 U/L (15-37); Albumin 2.8 g/dL (3.4-5.0); Alkaline Phosphatase 48 U/L (46-116); Anion Gap 10.4 mmol/L (3-11); BUN 25 mg/dL (7-18); Bilirubin, Total 0.5 mg/dL (0.2-1.0); CO2 26.6 mmol/L (21.0-32.0); CREATININE 1.9 mg/dL (0.70-1.30); Calcium 8.8 mg/dL (8.5-10.1); Chloride 103 mmol/L (98-107); Estimated GFR 36.56 (mL/min/1.73m2); Glucose 140 mg/dL (74-106); NT-proBNP 2595 pg/mL (<300); Sodium 140 mmol/L (136-145); Total Protein 6.7 g/dL (6.4-8.2)
[2022-07-30 19:21] LABS: Vitamin B12 707 pg/mL (193-986)
== END 2022-07-30 17:31 | disposition home or self-care (01) ==
LOC: LBN 17:30
PROVIDERS: PCP Family Medicine; Visit Provider Nurse Practitioner Gerontology
DX: R11.2 Nausea with vomiting, unspecified (principal); R68.89 Other general symptoms and signs; D64.9 Anemia, unspecified; I10 Essential (primary) hypertension; R06.89 Other abnormalities of breathing; R26.89 Other abnormalities of gait and mobility; R73.09 Other abnormal glucose
CPT/HCPCS: 80053; 82607; 83036; 83540; 83550; 83880; 85025

== ENCOUNTER 2022-08-04 16:40 | Outpatient (REF) | payer MEDICARE, MEDICAID, SELFPAY ==
[2022-08-04 16:41] LABS: Abs Immature Grans 0.04 10^3/uL (0.0-0.06); Absolute Basophil Count 0.03 10^3/uL (0.0-0.2); Absolute Eosinophil Count 0.32 10^3/uL (0.0-0.7); Absolute Lymphocyte Count 1.96 10^3/uL (1.2-3.4); Absolute Neutrophil Count 6.39 10^3/uL (1.2-6.7); Basophils % 0.3; Eosinophils % 3.4; HCT 32.5 % (40.0-50.0); HGB 10.2 g/dL (13.5-17.5); Immature Grans % 0.4; Lymphocytes % 20.5; MCHC 31.4 % (32.0-36.0); MPV 11.2 fL (8.0-11.0); Monocytes % 8.4; Platelet Count 295 10^3/uL (130-400); RDW 13.2 % (11.8-14.1); RDW-SD 46.2 fL; WBC 9.54 10^3/uL (4.4-10.8)
[2022-08-04 16:45] LABS: MCV 96 fL (80-95)
[2022-08-04 17:20] LABS: ALT 16 U/L (16-63); AST 8 U/L (15-37); Albumin 3.2 g/dL (3.4-5.0); Alkaline Phosphatase 54 U/L (46-116); Anion Gap 7.5 mmol/L (3-11); BUN 30 mg/dL (7-18); Bilirubin, Total 0.4 mg/dL (0.2-1.0); CO2 29.5 mmol/L (21.0-32.0); CREATININE 2.2 mg/dL (0.70-1.30); Calcium 9.3 mg/dL (8.5-10.1); Chloride 103 mmol/L (98-107); Estimated GFR 30.66 (mL/min/1.73m2); Glucose 107 mg/dL (74-106); NT-proBNP 1256 pg/mL (<300); Potassium 5.4 mmol/L (3.5-5.1); Sodium 140 mmol/L (136-145); Total Protein 7.4 g/dL (6.4-8.2)
== END 2022-08-04 16:41 | disposition home or self-care (01) ==
LOC: LBN 16:40
PROVIDERS: PCP Family Medicine; Visit Provider Nurse Practitioner Gerontology
DX: I50.20 Unspecified systolic (congestive) heart failure (principal); R68.89 Other general symptoms and signs; D64.9 Anemia, unspecified; I10 Essential (primary) hypertension
CPT/HCPCS: 80053; 83880; 85025

== ENCOUNTER 2022-08-20 14:01 | Outpatient (REF) | payer MEDICARE, MEDICAID, SELFPAY ==
[2022-08-20 14:25] LABS: Bilirubin Negative (Negative); Blood Trace-intact (Negative); Clarity Sl Cloudy (Clear); Glucose Negative (Negative); Ketones Negative (Negative); Leukocyte Esterase Large (Negative); Nitrite Positive (Negative); Urobilinogen 0.2 mg/dL (Up to 0.2)
[2022-08-20 14:34] LABS: Epithelial Cells Rare HPF (Negative); RBC 0-2 HPF (0-2)
[2022-08-20 14:35] LABS: Bacteria Many HPF (Negative); C & S Indicated? Yes; Casts Negative LPF (Negative); Crystals Negative HPF (Negative); Mucus Negative (Negative)
== END 2022-08-20 14:02 | disposition home or self-care (01) ==
LOC: LBN 14:01
PROVIDERS: PCP Family Medicine; Visit Provider Nurse Practitioner Gerontology
DX: N39.0 Urinary tract infection, site not specified (principal)
CPT/HCPCS: 87077; 81003; 81015; 87086; 87186

== ENCOUNTER 2022-11-10 17:31 | Outpatient (REF) | payer MEDICARE, MEDICAID, SELFPAY ==
[2022-11-10 18:39] LABS: Vitamin D 25 Total 24.6 ng/mL (30-100)
== END 2022-11-10 17:32 | disposition home or self-care (01) ==
LOC: LBN 17:31
PROVIDERS: PCP Family Medicine; Visit Provider Nurse Practitioner Gerontology
DX: E55.9 Vitamin D deficiency, unspecified (principal)
CPT/HCPCS: 82306

== ENCOUNTER 2022-12-06 22:13 | Emergency (ER) | payer MEDICARE, MEDICAID, SELFPAY ==
[2022-12-06] VITALS (14 sets, daily range): BP systolic 105–126; BP diastolic 59–62; PULSE 0–147; RESP 19–46; TEMP 37.5; O2SAT 95
--- NOTE | 2022-12-06 22:00 | RT.EKG_ITS ---
APPROVED REPORT Exam: Resting ECG Reason for Exam: [facility] Patient Location: E HR:141 bpm ECG Measurements Heart Rate 141 AXIS RI 124 P 160 QRSd 85 QRS -36 QT 347 T 78 QTc 535 Conclusion Sinus or ectopic atrial tachycardia...P axis (-45,135), rate> 99 Ventricular premature complex...V complex w/ short R-R interval Inferior infarct, old...Q >35mS, II III aVF Nonspecific T abnormalities, lateral leads...T <-0.10mV, I aVL V5 V6 Prolonged QT interval...QTc >500mS regular tachy, may be sinu or flutter
--- NOTE | 2022-12-06 22:15 | DI.CT_ITS ---
Exam(s) CT HEAD WO EXAM: CT HEAD WO CLINICAL HISTORY: AMS, V, Plavix, hx CVA. TECHNIQUE: Imaging Protocol: Axial computed tomography images with coronal and sagittal reformatted images were created and reviewed COMPARISON: No exams were available for comparison FINDINGS: Ventricles and Extra axial spaces: Normal in size and morphology for the degree of atrophy. Hemorrhage: None. Cerebral parenchyma: Moderate atrophy. White matter changes consistent with small vessel disease. Midline shift: None. Brainstem/Cerebellum: Normal. Calvarium: Normal. Visualized Paranasal sinuses/Mastoids: Clear. IMPRESSION: No acute abnormality. RADIATION DOSE DELIVERED: 706.47mGy.cm Total DLP 706.47mGy.cm Total DLP DATA REPOSITORY: All CT scans at this facility are submitted to the National Radiology Data Registry (NRDR) Dose Index Registry (DIR) with the [employer] (ACR). RADIATION OPTIMIZATION: All CT scans at this facility use at least one of these dose optimization te chniques: automated exposure control; mA and/or kV adjustment per patient size (includes targeted exa ms where dose is matched to clinical indication); or iterative reconstruction.
--- NOTE | 2022-12-06 22:15 | DI.RAD_ITS ---
Exam(s) XR PORTABLE CHEST AP EXAM: XR PORTABLE CHEST AP CLINICAL HISTORY: fever, AMS TECHNIQUE: 2D digital imaging was performed. COMPARISON: CT CT ABDOMEN PELVIS WO from 01/17/2022 RF RF MODIFIED SPEECH BA SWALLOW from 04/07/2022 FINDINGS: Exam is limited by technique and penetration. LUNGS: Chronic interstitial changes. Lungs are not well inflated. Left lower lobe infiltrate cannot be excluded, obscured by heart border. No pleural abnormality seen. HEART: Normal size. AORTA: Mildly ectatic. BONES: Unremarkable for age. Soft tissues: Unremarkable. IMPRESSION: Question left lower lobe infiltrate superimposed on chronic fibrotic changes. DATA REPOSITORY: RADIATION DOSE DELIVERED:
[2022-12-06] MEDS: Normal Saline 1,000 ML 1000 ML IV (22:30)
--- NOTE | 2022-12-06 22:38 | W.ED.GENAD ---
Discharge Plan Disposition Patient Disposition: Discharge Details Clinical Impression: Pneumonia, Ventricular tachycardia, unspecified Primary Care Provider: Sridhar Magaña ED Provider: Tamika Markham Discharge Data Cause of : Pneumonia Discharge Date/Time-TO BE ENTERED AT DEPARTURE: 12/07/22 00:50 Medical Decision Making Patient was diagnosed with pneumonia and given ceftriaxone and Zithromax IV. He did receive sepsis bolus fluids. I did calculate his adjusted body weight for his 30 ml per kilo IV fluids. His heart rate was elevated with a fever gave him Tylenol she wanted he did not treat what was potentially a flutter. I discussed the case with Dr. Owusu, hospitalist, who agreed to admit the patient. He came down to the ED to evaluate the patient. Short time later one of the techs asked me whether what was on his monitor was correct. He was in ventricular tachycardia. On my entering the room patient had agonal breathing. His pulse was checked and he was pulseless. He was DNI/DNR no extraordinary measures; palliative care. Dr. Owusu joined us a short time later. The patient appeared comfortable if he was dying and nothing more was done. He was declared at 0050. Kenzie, hospital nursing supervisor small appliance assembly, was able to reach the patient's DPOA Nayan Calixto. We were unable to reach a lady friend and his daughter. Dr. Owusu stated that he would do the certificate and notify the medical apparatus model maker. Medical Records Medical records reviewed: Yes I reviewed the patient's medical records. Imaging Data Radiologic Study: Imaging: X-Ray and CT Scan Radiologist's impression: CT brain: Diffuse atrophy and chronic multifocal ischemic changes with no evidence of infarction, hemorrhage, or hydrocephalus. No acute intracranial processes detected. Lab Data Lab results reviewed: Yes I reviewed the patient's lab results. Lab results narrative: WBC 11.3 K with 89 polys and 7 lymphs. Lactate 2. BUN and creatinine 29 and 1.9. Magnesium 1.6. Ammonia 35 with no prior comparisons. Troponin was mildly elevated at 147 with no prior for comparison. This is not particularly impressive with a high-sensitivity troponin. He had no ST elevation on EKG. Plan was to repeat the troponin at the patient prior to this. ECG Data Attestation: I personally reviewed and interpreted this ECG (s) as follows: (Regular tachy at 140, unclear if sinus or flutter, no old one for comp) HPI General Date/Time Provider Initiated Documentation: 12/06/22 22:22. HPI Narrative: This 72-year-old male patient with a history of CVA arrives via ambulance from a local residential with a chief complaint of fever. Reportedly earlier this afternoon the patient had some nausea and vomiting. Fever was reported in the ambulance and at the residential. He also has a junky sounding cough. With the fever he has altered mental status. He is he is oriented to his name but cannot tell me where he is or what time it is. When I asked if he had pain he said yes but cannot tell me where. He appears nontoxic. He is not on oxygen at the residential and arrived on oxygen. He was a heavy smoker for years and I have turned his oxygen down from 4 L to 3 as his sats are in the mid to high 90s. Patient is DNI and DNR with limited interventions. I do suspect that he has a fever here as this was documented short time ago per EMS and the residential. His heart rate is 144 but it is unclear whether this is sinus tach or flutter. I will give him Tylenol to bring his fever down and slow his heart rate. Related Data Home Medications Medication Instructions Recorded Confirmed clopidogrel 75 mg tablet (Plavix) 75 mg PO DAILY 06/05/20 10/01/22 diclofenac sodium 1 % topical gel 2 g topical TID 06/05/20 04/02/22 gabapentin 100 mg capsule 100 mg PO TID 06/05/20 10/01/22 atorvastatin 20 mg tablet 20 mg PO HS 06/28/21 10/01/22 lisinopril 5 mg tablet 5 mg PO DAILY AM 06/28/21 10/01/22 metoprolol succinate 50 mg 12.5 mg PO HS 06/28/21 10/01/22 tablet,extended release 24 hr acetaminophen 500 mg capsule 500 mg PO TID pain #90 caps 07/08/21 10/01/22 morphine 15 mg tablet,extended 15 mg PO Q8H #30 tabs 07/08/21 10/01/22 release albuterol sulfate 90 mcg/actuation 90 mcg inhalation Q4H PRN 08/12/21 10/01/22 aerosol inhaler budesonide-formoterol HFA 160 2 puff inhalation DAILY 08/12/21 10/01/22 mcg-4.5 mcg/actuation aerosol inhaler (Symbicort) epinephrine 0.3 mg/0.3 mL 0.3 mg subcut PRN PRN 08/12/21 10/01/22 injection, auto-injector nicotine 21 mg/24 hr daily 21 mg transdermal Q24H 08/12/21 04/02/22 transdermal patch vitamin B complex 1 cap PO DAILY 08/12/21 10/01/22 polyethylene glycol 3350 17 17 g PO DAILY 09/09/21 10/01/22 gram/dose oral powder sennosides 8.6 mg-docusate sodium 2 tab-cap PO QHS 09/09/21 10/01/22 50 mg tablet (Senexon-S) ascorbate calcium (vitamin C) 500 500 mg PO BID 10/29/21 04/02/22 mg tablet ferrous sulfate 325 mg (65 mg 325 mg PO BID 10/29/21 10/01/22 iron) tablet furosemide 40 mg tablet (Lasix) 40 mg PO PRN 10/29/21 04/02/22 menthol 5 % topical gel (Biofreeze 1 applic topical BID PRN 10/29/21 04/02/22 (menthol)) bisacodyl 10 mg rectal suppository 10 mg MI PRN PRN 03/04/22 04/02/22 escitalopram oxalate 5 mg tablet 5 mg PO DAILY 09/30/22 10/01/22 (Lexapro) fentanyl 25 mcg/hr transdermal 2 patch transdermal Q72H 10/01/22 10/01/22 patch Previous Rx's Medication Instructions Recorded acetaminophen 500 mg capsule 500 mg PO TID pain #90 caps 07/08/21 morphine 15 mg tablet,extended 15 mg PO Q8H #30 tabs 07/08/21 release Allergies Allergy/AdvReac Type Severity Reaction Status Date / Time egg Allergy Severe Anaphylaxis Unverified 09/30/22 08:28 varenicline [From Chantix] Allergy liver Unverified 09/30/22 08:28 failure General Stated Complaint: AMS/LOC NAS: 2 Review of Systems Unobtainable due to mental status (AMS, Ox1) Constitutional Constitutional: Denies chills, Denies fever(s), Denies headache(s) and Denies weakness Eyes Eyes: Denies diplopia and Reports other (no redness) ENT Ears, Nose, Mouth, and Throat: Denies otalgia, Denies headache(s), Denies nasal congestion, Denies nasal discharge, Denies neck pain and Denies sore throat Cardiovascular Cardiovascular: Denies chest pain, Denies palpitations and Denies dyspnea Respiratory Respiratory: Reports cough (Junky sounding) and Denies dyspnea Gastrointestinal Gastrointestinal: Denies abdominal pain, Denies diarrhea, Denies nausea and Denies vomiting Genitourinary Genitourinary: Reports difficulty urinating, Denies dysuria and Reports other (Has indwelling Turner catheter) Musculoskeletal Musculoskeletal: Denies myalgias, Denies muscle weakness, Denies neck pain, Denies numbness and Reports other (edema) Integumentary/Breasts Skin/Breast: Denies change in pigmentation and Denies rash Neurologic Neurologic: Denies headache(s), Denies numbness and Denies weakness Endocrine Endocrine: Denies palpitations PFSH All Active Problems (Updated 12/07/22 @ 01:45 by Tamika Markham MD) Ventricular tachycardia, unspecified (Chronic) Pneumonia (Acute) Renal insufficiency (Chronic) Discharge planning issues (Acute) Urinary catheter in place (Acute) CVA (cerebral vascular accident) (Chronic) Chronic pain (Chronic) Palliative care patient (Acute) Decreased mobility (Acute) DNI (do not intubate) (Acute) DNR (do not resuscitate) (Acute) Medical History Adult failure to thrive Alcohol abuse Cerebral infarction Chronic viral hepatitis C Difficulty in walking Essential hypertension Full incontinence of feces Hemiparesis Hemiplegia Hemiplegia affecting left dominant side Hx of TIA (transient ischemic attack) and stroke MRSA (methicillin resistant Staphylococcus aureus) Oropharyngeal dysphagia Other abnormalities of gait and mobility Other chronic pain Pain in right hip Tinea unguium Tobacco use Unspecified osteoarthritis, unspecified site Unspecified urinary incontinence 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 Very low level of personal hygiene Surgical History History of hip surgery Hx of cataract surgery Social History Smoking/Tobacco Use Status: Former Tobacco Use Smoking risk assessment performed?: Yes Alcohol Intake: former Drug use: Never Substance use type: does not use Housing: assisted living facility Do you feel safe at home: Yes Do you feel safe in your relationship?: Yes Additional Social history: Pt at the [facility] Exam Const General: no acute distress, well developed, well groomed and not in acute distress Nutritional Appearance: well nourished Orientation: alert and oriented x3 HENMT Head: normocephalic and atraumatic Ears: external ears normal Mouth: oropharynx normal and moist mucous membranes Throat: posterior oropharynx normal Eyes Conjunctivae: conjunctivae normal Neck Neck: full ROM and supple Chest Chest: normal inspection of the chest Resp Effort & Inspection: normal respiratory effort Auscultation: rhonchi and other (Harsh sounding cough) Cardio Rate: regular rate and tachycardic Rhythm: regular rhythm Heart Sounds: no murmurs and no rubs GI Inspection: normal to inspection Palpation: soft, nontender and other (non distended) Auscultation: normal bowel sounds Skin General skin exam: no rashes or lesions noted and other (pink, warm, dry) Neuro General: patient alert, patient awake and oriented (Person only) Cranial Nerves: other (limited due to ability to cooperate and AMS, tracks well) Speech: speech normal Gait: gait not assisted Motor: strength 5/5 throughout (Normal right hand grasp and B feet push pulls.) and other (Left upper extremity weakness status post CVA; baseline. Full ROM in other) Sensory Exam: no sensory deficits noted (grossly) Pupils: Normal pupillary reactivity/response: bilateral Extrem General: normal to inspection, full ROM and pedal edema present Psych Mental Status: mental status grossly normal Speech and Movement: speech and movement normal Affect: normal affect Course Vital Signs Vital signs: Vital Signs Temperature 37.5 C 12/06/22 22:14 Pulse 144 H 12/06/22 22:14 Respiratory Rate 19 12/06/22 22:14 Blood Pressure 109/61 12/06/22 22:14 Pulse Oximetry 95 12/06/22 22:14 Temperature 37.5 C 12/06/22 22:14 Temperature Source Oral 12/06/22 22:14 Pulse 144 H 12/06/22 22:14 Respiratory Rate 19 12/06/22 22:14 Respiratory Effort Normal, Non-Labored 12/06/22 22:20 Blood Pressure 109/61 12/06/22 22:14 Blood Pressure Position Sitting 12/06/22 22:14 Pulse Oximetry 95 12/06/22 22:14 Oxygen Delivery Method Nasal Cannula 12/06/22 22:14 Oxygen Flow Rate 4 12/06/22 22:14 Lab/Test Results Lab/Test Results: 12/06/22 22:30 Blood Blood Culture - Pending 12/06/22 22:30 Blood Blood Culture - Pending
[2022-12-06 22:39] LABS: BE (Venous) 1 mmol/L (-2-3); HCO3 (Venous) 25 mmol/L (23-28); O2 Sat (Venous) 95 %; TCO2 (Venous) 23 mmol/L (24-29); pCO2 (Venous) 39 mmHg (41-51); pH (Venous) 7.42 (7.31-7.41); pO2 (Venous) 71 mmHg
[2022-12-06 22:45] LABS: Abs Immature Grans 0.04 10^3/uL (0.0-0.06); Absolute Basophil Count 0.03 10^3/uL (0.0-0.2); Absolute Eosinophil Count 0.01 10^3/uL (0.0-0.7); Absolute Monocyte Count 0.32 10^3/uL (0.1-0.8); Absolute Neutrophil Count 10.12 10^3/uL (1.2-6.7); Basophils % 0.3; Eosinophils % 0.1; HCT 34.3 % (40.0-50.0); HGB 11.4 g/dL (13.5-17.5); Immature Grans % 0.4; Lymphocytes % 7.1; MCHC 33.2 % (32.0-36.0); MCV 93 fL (80-95); MPV 10.6 fL (8.0-11.0); Monocytes % 2.8; Neutrophils % 89.3; Platelet Count 233 10^3/uL (130-400); RBC 3.68 10^6/uL (4.36-5.78); RDW 12.6 % (11.8-14.1); RDW-SD 43.1 fL; WBC 11.33 10^3/uL (4.4-10.8)
[2022-12-06] MEDS: Normal Saline 1,000 ML 2570 ML IV (22:45)
[2022-12-06 22:59] LABS: Ammonia 35 umol/L (11-32)
[2022-12-06 23:02] LABS: ALT 16 U/L (16-63); AST 23 U/L (15-37); Albumin 3.2 g/dL (3.4-5.0); Alkaline Phosphatase 54 U/L (46-116); Anion Gap 9.8 mmol/L (3-11); BUN 29 mg/dL (7-18); Bilirubin, Total 0.7 mg/dL (0.2-1.0); CO2 25.2 mmol/L (21.0-32.0); CREATININE 1.9 mg/dL (0.70-1.30); Calcium 8.8 mg/dL (8.5-10.1); Chloride 108 mmol/L (98-107); Estimated GFR 36.56 (mL/min/1.73m2); Glucose 116 mg/dL (74-106); Magnesium 1.6 mg/dL (1.8-2.4); Potassium 3.5 mmol/L (3.5-5.1); Sodium 143 mmol/L (136-145); Total Protein 7.2 g/dL (6.4-8.2)
[2022-12-06 23:03] LABS: Troponin I 147 ng/L (<or=60)
[2022-12-06 23:30] LABS: COVID-19 PCR Negative (Negative); Influenza A PCR Negative (Negative); Influenza B PCR Negative (Negative); RSV PCR Negative (Negative)
[2022-12-06 23:32] LABS: Source Nasopharynx
--- NOTE | 2022-12-06 23:45 | DI.VRAD_ITS ---
PROCEDURE INFORMATION: Exam: CT Head Without Contrast Exam date and time: 12/06/2022 11:17 PM Age: 72 years old Clinical indication: Altered mental status/memory loss; Confusion or disorientation; Patient HX: AMS, v, plavix, HX CVA TECHNIQUE: Imaging protocol: Computed tomography of the head without contrast. Radiation optimization: All CT scans at this facility use at least one of these dose optimization techniques: automated exposure control; mA and/or kV adjustment per patient size (includes targeted exams where dose is matched to clinical indication); or iterative reconstruction. COMPARISON: RF MODIFIED SPEECH BA SWALLOW 04/07/2022 10:43 AM FINDINGS: Brain: Prominence of cerebral sulci reflects diffuse cerebral atrophy. Poorly marginated hypodensities seen throughout the deep and periventricular white matter of both cerebral hemispheres are consistent with microvascular ischemic changes with suspected superimposed chronic ischemic insults seen involving cortex and deep and subcortical white matter in the posteromedial left frontal and anteromedial right parietal lobes. Brainstem and cerebellum are unremarkable and there is no evidence of acute transcortical infarction or recent intracranial hemorrhage. Cerebral ventricles: Dilatation of the 3rd and lateral ventricles is commensurate with the degree of cerebral atrophy. Paranasal sinuses: Grossly clear throughout. Mastoid air cells: Grossly clear bilaterally. Bones/joints: Bony calvarium and skull base are intact and no acute fractures are detected. Soft tissues: Unremarkable. IMPRESSION: Diffuse atrophy and chronic multifocal ischemic changes with no evidence of acute transcortical infarction, recent hemorrhage or hydrocephalus. No acute intracranial process is detected. Dictated and Authenticated by: Brian Calvo MD. Ordering:BÁRBARA Lundberg MD
--- NOTE | 2022-12-06 23:49 | DI.VRAD_ITS ---
PROCEDURE INFORMATION: Exam: XR Chest Exam date and time: 12/06/2022 11:26 PM Age: 72 years old Clinical indication: Fever and other: AMS; Patient HX: Fever, AMS TECHNIQUE: Imaging protocol: Radiologic exam of the chest. Views: 1 view. COMPARISON: CT ABDOMEN PELVIS WO 01/17/2022 8:20 AM FINDINGS: Lungs: Indistinct patchy parenchymal densities are seen in the lower left lung field and the right lung is grossly clear. Pleural spaces: No pneumothorax or large pleural effusion detected. Heart/Mediastinum: Heart size is upper limits of normal and there is vascular congestion without overt pulmonary edema. Bones/joints: No acute osseous lesions are detected. IMPRESSION: Indistinct patchy infiltrate in the lower left lung field concerning for an acute infectious process. Borderline heart size and underlying vascular congestion also noted. Short-term follow-up study is suggested. Dictated and Authenticated by: Brian Calvo MD. Ordering:BÁRBARA Lundberg MD
[2022-12-07] VITALS: PULSE 121; RESP 28
[2022-12-07 00:01] VITALS: BP 117/53; PULSE 120; PULSE 122; RESP 25
[2022-12-07] MEDS: ACETAMINOPHEN 1,000 MG/100 ML BTL 400 MG IVPB (00:10)
--- NOTE | 2022-12-07 00:18 | HPE_ITS ---
Date of service: 12/07/22 Time of Service: 00:19 Assessment and Plan Assessment and plan (1) Pneumonia: Status: Acute Assessment and plan: Pneumonia. Will continue Rocephin and Zithro, along with supplemental O2 as needed. Marginal elevation troponin w/o EKG changes, and absent any history c/w ACS. No doubt demand ischemia (likely from tachycardia). Will recheck troponin in AM Usual meds as is otherwise, with exception of SAMIA until we are certain of stable hemodynamics. Per prior remains DNR. History of Present Illness History of Present Illness Chief Complaint: fever and cough Narrative: 72 male resident of [facility] -- here with one day of cough, fever and altered mental status. Temp en route reported (by ER) as 100.4. Here in ER findings of note for temp 37.5, initial pulse 144, now 120; white count 11 and CXR showing LLL infiltrate. Troponin 147, EKG narrow complex and regular (sinus tach vs SVT -- has since slowed to 120 and sinus tach on monitor); viral swab triple negative. Patient ordered for Rocephin and Zithromax, I was asked to evaluate for admiss ion. Patient unable to provide any history. Review of Systems Narrative: unable due to mental status [facility] All Active Problems (Updated 12/07/22 @ 00:29 by Chencho Owusu MD) Pneumonia (Acute) Renal insufficiency (Chronic) Discharge planning issues (Acute) Urinary catheter in place (Acute) CVA (cerebral vascular accident) (Chronic) Chronic pain (Chronic) Palliative care patient (Acute) Decreased mobility (Acute) DNI (do not intubate) (Acute) DNR (do not resuscitate) (Acute) Medical History Adult failure to thrive Alcohol abuse Cerebral infarction Chronic viral hepatitis C Difficulty in walking Essential hypertension Full incontinence of feces Hemiparesis Hemiplegia Hemiplegia affecting left dominant side Hx of TIA (transient ischemic attack) and stroke MRSA (methicillin resistant Staphylococcus aureus) Oropharyngeal dysphagia Other abnormalities of gait and mobility Other chronic pain Pain in right hip Tinea unguium Tobacco use Unspecified osteoarthritis, unspecified site Unspecified urinary incontinence 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 Very low level of personal hygiene Surgical History History of hip surgery Hx of cataract surgery Social History Smoking/Tobacco Use Status: Former Tobacco Use Smoking risk assessment performed?: Yes Alcohol Intake: former Drug use: Never Substance use type: does not use Do you feel safe at home: Yes Do you feel safe in your relationship?: Yes Additional Social history: Pt at the [facility] Allergies and Home Medications Allergies Allergy/AdvReac Type Severity Reaction Status Date / Time egg Allergy Severe Anaphylaxis Unverified 09/30/22 08:28 varenicline [From Chantix] Allergy liver Unverified 09/30/22 08:28 failure Home Medications Medication Instructions Recorded Confirmed Type clopidogrel 75 mg tablet (Plavix) 75 mg PO DAILY 06/05/20 10/01/22 History diclofenac sodium 1 % topical gel 2 g topical TID 06/05/20 04/02/22 History gabapentin 100 mg capsule 100 mg PO TID 06/05/20 10/01/22 History atorvastatin 20 mg tablet 20 mg PO HS 06/28/21 10/01/22 History lisinopril 5 mg tablet 5 mg PO DAILY AM 06/28/21 10/01/22 History metoprolol succinate 50 mg 12.5 mg PO HS 06/28/21 10/01/22 History tablet,extended release 24 hr acetaminophen 500 mg capsule 500 mg PO TID pain #90 caps 07/08/21 10/01/22 Rx morphine 15 mg tablet,extended 15 mg PO Q8H #30 tabs 07/08/21 10/01/22 Rx release albuterol sulfate 90 mcg/actuation 90 mcg inhalation Q4H PRN 08/12/21 10/01/22 History aerosol inhaler budesonide-formoterol HFA 160 2 puff inhalation DAILY 08/12/21 10/01/22 History mcg-4.5 mcg/actuation aerosol inhaler (Symbicort) epinephrine 0.3 mg/0.3 mL 0.3 mg subcut PRN PRN 08/12/21 10/01/22 History injection, auto-injector nicotine 21 mg/24 hr daily 21 mg transdermal Q24H 08/12/21 04/02/22 History transdermal patch vitamin B complex 1 cap PO DAILY 08/12/21 10/01/22 History polyethylene glycol 3350 17 17 g PO DAILY 09/09/21 10/01/22 History gram/dose oral powder sennosides 8.6 mg-docusate sodium 2 tab-cap PO QHS 09/09/21 10/01/22 History 50 mg tablet (Senexon-S) ascorbate calcium (vitamin C) 500 500 mg PO BID 10/29/21 04/02/22 History mg tablet ferrous sulfate 325 mg (65 mg 325 mg PO BID 10/29/21 10/01/22 History iron) tablet furosemide 40 mg tablet (Lasix) 40 mg PO PRN 10/29/21 04/02/22 History menthol 5 % topical gel (Biofreeze 1 applic topical BID PRN 10/29/21 04/02/22 History (menthol)) bisacodyl 10 mg rectal suppository 10 mg GA PRN PRN 03/04/22 04/02/22 History escitalopram oxalate 5 mg tablet 5 mg PO DAILY 09/30/22 10/01/22 History (Lexapro) fentanyl 25 mcg/hr transdermal 2 patch transdermal Q72H 10/01/22 10/01/22 History patch Exam Narrative Exam Narrative: 117/53, 120, 37.5, 25, 95% 4L NC. HEENT atraumatic; neck supple; lungs diffuse coarse rhonchi; heart tachy/regular; abdomen soft and NT; extremities trace pedal edema; neuro Ox1, moves all 4s Results Labs 12/06/22 22:30 12/06/22 22:30 Labs: Laboratory Results - last 24 hr 12/06/22 12/06/22 12/06/22 22:30 22:30 22:30 WBC 11.33 H RBC 3.68 L Hgb 11.4 L Hct 34.3 L MCV 93 MCH 31.0 MCHC 33.2 RDW 12.6 Plt Count 233 MPV 10.6 Immature Gran % 0.4 Neutrophils % 89.3 Lymphocytes % 7.1 Monocytes % 2.8 Eosinophils % 0.1 Basophils % 0.3 Nucleated RBC % 0.0 Absolute Neutrophils 10.12 H Absolute Lymphocytes 0.80 L Absolute Monocytes 0.32 Absolute Eosinophils 0.01 Absolute Basophils 0.03 VBG pH VBG pCO2 VBG pO2 VBG HCO3 VBG Total CO2 VBG O2 Saturation VBG Base Excess VBG Lactate 2.0 H Sodium 143 Potassium 3.5 Chloride 108 H Carbon Dioxide 25.2 Anion Gap 9.8 BUN 29 H Creatinine 1.9 H Est GFR (CKD-EPI 2021) 36.56 Glucose 116 H Calcium 8.8 Magnesium 1.6 L Total Bilirubin 0.7 AST 23 ALT 16 Alkaline Phosphatase 54 Ammonia Troponin I 147 H* Total Protein 7.2 Albumin 3.2 L COVID-19 Source SARS-CoV-2 (PCR) Influenza Type A (PCR) Influenza Type B (PCR) RSV (PCR) 12/06/22 12/06/22 12/06/22 22:30 22:30 22:37 WBC RBC Hgb Hct MCV MCH MCHC RDW Plt Count MPV Immature Gran % Neutrophils % Lymphocytes % Monocytes % Eosinophils % Basophils % Nucleated RBC % Absolute Neutrophils Absolute Lymphocytes Absolute Monocytes Absolute Eosinophils Absolute Basophils VBG pH 7.42 H VBG pCO2 39 L VBG pO2 71 VBG HCO3 25 VBG Total CO2 23 L VBG O2 Saturation 95 VBG Base Excess 1 VBG Lactate Sodium Potassium Chloride Carbon Dioxide Anion Gap BUN Creatinine Est GFR (CKD-EPI 2020) Glucose Calcium Magnesium Total Bilirubin AST ALT Alkaline Phosphatase Ammonia 35 H Troponin I Total Protein Albumin COVID-19 Source Nasopharynx SARS-CoV-2 (PCR) Negative Influenza Type A (PCR) Negative Influenza Type B (PCR) Negative RSV (PCR) Negative Last Vital Signs Temp 37.5 C 12/06/22 22:14 Pulse 120 H 12/07/22 00:01 Resp 25 H 12/07/22 00:01 BP 117/53 L 12/07/22 00:01 Pulse Ox 95 12/06/22 22:14 Time Spent Time spent with Patient: <40 minutes Time was spent: preparing to see the patient(eg.review tests), obtaining and/or reviewing separately otained hiistory, ordering medications,tests, procedures and indepentently interpreting results
[2022-12-07] MEDS: Normal Saline 1,000 ML 1000 ML IV (00:29)
--- NOTE | 2022-12-07 01:03 | EXPE_ITS ---
Date of service: 12/07/22 Time of Service: 01:09 Discharge Plan Disposition Patient Disposition: Discharge Details Clinical Impression: Pneumonia Primary Care Provider: Sridhar Magaña ED Provider: Tamika Markham Discharge Sum: Diag Contributing Factors (1) Pneumonia: Discharge Sum: Summary Summary Details: Patient is a 72 year old resident of [facility]. He was transferred here for evaluation of fever, cough and altered mental status. Work up showed L LL pneumonia. Other findings of note for slight elevation of troponin to 147 with sinus tachycardia and no ischemic changes on EKG, presumed type 2 demand ischemia. Patient ordered for Rocephin and Zithromax. While still in ER patient developed pulseless V-tach with agonal respirations. Code status was DNR and no CPR was performed. Patient at 00:50.
[2022-12-07 01:06] VITALS: RESP 16
--- NOTE | 2022-12-07 01:14 | NUR.NOTE ---
Pt went into VTach and stopped breathing on his own, provider in the room confirmed pt is DNR / DNI, no heroic measures were taken, pt went into asystole and , See Dr Owusu Summary, FPJ
[2022-12-07 01:17] VITALS: BP 0/0; PULSE 0; RESP 0; O2SAT 0
--- NOTE | 2022-12-07 17:39 | NUR.NOTE ---
Nursing Note: Accessed pt chart to determine number of EKG orders. Duplicate order deleted.
--- NOTE | 2022-12-08 16:22 | NUR.NOTE ---
Nursing Note: The [facility] called asking about Dr Owusu signing the certificate for this patient. 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
== END 2022-12-07 00:50 | disposition expired ==
PROVIDERS: Emergency Provider Emergency Medicine; PCP Family Medicine
DX: R11.2 Nausea with vomiting, unspecified (principal); J18.9 Pneumonia, unspecified organism; I47.20 Ventricular tachycardia, unspecified
CPT/HCPCS: 36416; 80053; 82805; 82962; 87040; 87637; 93005; 96360; 96375; 99283; 99285; 70450; 71045; 81003; 82140; 83605; 83735; 84484; 85025; 93010; J0131